=== PATIENT | female | born 1970 | race Two or more races ===

== ENCOUNTER 2024-05-16 10:50 | Outpatient (AMB) | payer OTHER, SELFPAY ==
[2024-05-16 10:54] VITALS: BP 126/88; PULSE 68; RESP 24; TEMP 37.1; O2SAT 98; BMI 56.3
--- NOTE | 2024-05-16 10:54 | MHC.PC.OV ---
Vital Signs 05/16/24 10:54 Height 5 ft 1 in Weight 297 lb 12.8 oz BMI 56.3 BP 126/88 Blood Pressure Location Lt brachial Position Sitting Respiration 24 H Pulse 68 Pulse Source Pulse Oximeter Temp 98.8 F Temp Source Oral Pulse Oximetry (%) 98 Oxygen Delivery Method Room Air Intake Visit Reasons: establish care Intake Note: Patient is a new patient here to establish care. Transferring care from [place]. Medical records have been brought in by patient. Optical Engineering Manager Required: No Accompanied by: Self / Same As Patient Allergies aspirin Allergy (Severe, Verified 05/16/24 11:33) Anaphylaxis Quinolones Allergy (Severe, Verified 05/16/24 11:33) Anaphylaxis Sulfa (Sulfonamide Antibiotics) Allergy (Severe, Verified 05/16/24 11:33) Anaphylaxis Medication List - Last Reconciled 05/16/24 by ALBA Salazar acetaminophen ER (Tylenol 8 Hour) 1,300 mg PO Q12H amitriptyline 100 mg PO BEDTIME aripiprazole 20 mg PO DAILY atenolol 25 mg PO DAILY azelastine 1 spray intranasal BID famotidine (Pepcid) 20 mg PO BEDTIME fluticasone propionate 50 mcg/actuation 1 spray intranasal BID gabapentin 300 mg PO BEDTIME gabapentin 100 mg PO DAILY melatonin 5 mg PO BEDTIME PRN montelukast 10 mg PO QPM omeprazole 40 mg PO DAILY venlafaxine ER 75 mg PO DAILY venlafaxine ER 150 mg PO DAILY Tobacco use date assessed: 05/16/24 Dental Screening Dental Screen Date: 05/16/24 Did you have a dental visit in the last 12 months?: Yes Did you have a dental problem in the last 6 months where you did not have access to dental care?: No Was dental information given to patient?: Patient has dentist HPI establish care HPI Details Previous PCP: In [place]. [place] Last visit:year ago Last PE: same Specialist: Neurologist-apnea CPAP use, psychiatrist (Dr. Winter Cobb on [address] [place] [address]) OBGYN: needs referral-last screened few years ago Past medical history: asthma, allergy, sinus, apnea, GERD, IBS, Dengerative disc disease, C2- s1 (chronic back pain), spondiolysis, elevated triglycerides, left knee meniscus tear-was not repair (5 years ago), she used to walk with her walker, she cannot used stairs Medications: Family HX: Problem: Reports having xrays of her back like 5 or 6 years ago-reports that the pain goes from her neck all the way down her lower back reports that she was supposed to see pain management before, but her mother got sick and and she forgot all about it reports that she was supposed to get the bariatric surgery; she had 3 separate dates but every time something happened and she was not able to do it. She is not sure if she is a candidate anymore. Her BMI is 56.3 this time-will refer her Reports that if she does not take the omeprazole she gets heart burn, nausea and at times vomits. Reports having a EGD more than 20 years ago reports that she sees the psychiatry monthly-because she wants to take off the amitriptyline 100mg-due to her age/side effects reports seeing a therapist every 2 weeks Reports that she is on atenolol for sinus tachycardia- hr 68 in office Reports having a mammogram a year ago-negative [facility] Medical History GERD (gastroesophageal reflux disease) IBS (irritable bowel syndrome) Asthma Sleep apnea History of torn meniscus of left knee Degenerative disc disease, cervical Surgical History Hx of cholecystectomy Hx of section Family History Father Congestive heart failure COPD (chronic obstructive pulmonary disease) Mother Diabetes Mental health problem Daughter Ovarian cancer Daughter No problems noted. Son No problems noted. Son No problems noted. Son No problems noted. Social History Household Members: Family Housing: House Alcohol intake: never Patient Tobacco Use Status: Never used Tobacco e-Cigarette/Vaping Use: Never Used Second Hand Smoke Exposure: No service: No Current occupational status: disabled Cognitive needs: Yes (Walker) Hearing needs: No Vision needs: Yes (Glasses) Questionnaire PHQ-9 Over the last 2 weeks, how often have you been bothered by any of the following problems? 1. Little interest or pleasure in doing things: several days 2. Feeling down, depressed, or hopeless: several days 3. Trouble falling or staying asleep, or sleeping too much: nearly every day 4. Feeling tired or having little energy: nearly every day 5. Poor appetite or overeating: not at all 6. Feeling bad about yourself - or that you are a failure or have let yourself or your family down: several days 7. Trouble concentrating on things, such as reading the newspaper or watching television: more than half the days 8. Moving or speaking so slowly that other people could have noticed. Or the opposite - being so fidgety or restless that you have been moving around a lot more than usual: not at all 9. Thoughts that you would be better off or of hurting yourself in some way: not at all Total score: 11 Depression Screening Interpretation: Positive Depression Screening Done: Yes 51813 - PHQ-9 Billing: Yes Source: Developed by Drs. Otf Adhikari, Jasmina Matias, Juliano Coyne and colleagues, with an educational tyesha from [employer]. Thrive Questionnaire Date Thrive assessed: 05/16/24 I am a: Patient What is your living situation today?: I have a steady place to live Within the past 12 months, did the food you bought not last and you didn't have the money to get more?: Never true Within the past 12 months, did you worry whether your food would run out before you got money to buy more?: Sometimes True Do you have trouble paying for medicines?: No Do you have trouble getting transportation to medical appointments?: Yes Do you have trouble paying your heating and electricity bill?: Yes Do you have trouble taking care of your child, family member or friend?: No Do you have trouble with day-to-day activities such as bathing, preparing meals, shopping, managing finances, etc.?: Yes Are you currently unemployed and looking for a job?: No Are you interested in more education?: No Please select the resources that you would like help with: Housing/Nursing Home and Transportation Currently or been in a relationship where the following occur: No concerns reported THRIVE Score: 3 AUDIT C Alcohol Use Questionnaire (AUDIT-C) 1. How often do you have a drink containing alcohol?: Never Total Score: 0 Score Reviewed/Action Taken: Yes OLGA-7 AMB Questionnaire OLGA-7 Date OLGA - 7 assessed: 05/16/24 Feeling nervous, anxious, or on edge: 1 = Several days Not being able to stop or control worryin = Several days Worrying too much about different things: 1 = Several days Trouble relaxin = Several days Being so restless that it is hard to sit still: 0 = Not at all Becoming easily annoyed or irritable: 0 = Not at all Feeling afraid as if something awful might happen: 3 = Nearly every day Total OLGA-7 score (0-4 normal; 5-9 mild; 10-14 moderate; 15-21 severe): 7 Source: Developed by Drs. Otf Adhikari, Jasmina Matias, Juliano Coyne and colleagues, with an educational tyesha from [employer]. OLGA-7 Assessment Billing OLGA-7 Assessment Tool: OLGA-7 Assessment 58782 Review of Systems Const Denies headache(s) and Reports snoring Eyes Denies loss of vision ENT Denies vertigo, Denies dizziness, Denies headache(s), Reports neck pain and Denies sore throat Card Denies chest pain, Denies leg edema and Denies lightheadedness Resp Denies cough, Denies hemoptysis, Reports snoring and Denies wheezing GI Denies abdominal pain, Denies melena, Denies constipation, Reports heartburn (Without treatment), Denies diarrhea, Reports nausea (Without the omeprazole) and Reports vomiting (Without the omeprazole) Denies urinary frequency, Denies dysuria and Denies urinary urgency Musc Reports back pain (Entire back), Reports arthralgias (Left knee), Denies joint swelling, Reports neck pain, Denies numbness and Denies tingling Neuro Denies Abnormal speech present, Denies behavioral changes, Denies vertigo, Denies dizziness, Denies headache(s), Denies loss of vision, Denies memory loss, Denies numbness and Denies tingling Psych Reports anxiety, Denies behavioral changes, Reports depression, Denies memory loss and Denies panic attacks Tony/Lymph Denies easy bleeding and Denies easy bruising Aller/Immun Denies wheezing Physical exam (Primary Care) Vital Signs: Last Vital Signs Temp 98.8 F 05/16/24 10:54 Pulse 68 05/16/24 10:54 Resp 24 H 05/16/24 10:54 BP 126/88 05/16/24 10:54 Pulse Ox 98 05/16/24 10:54 Oxygen Delivery Method Room Air 05/16/24 10:54 BMI result Body Mass Index 56.3 Tobacco/Smoking Status: Tobacco use Status Tobacco use date assessed 05/16/24 05/16/24 11:27 Patient Tobacco Use Status Never used Tobacco 05/16/24 11:27 e-Cigarette/Vaping Use Never Used 05/16/24 11:27 PHQ-9: PHQ-9 Score PHQ-9: Total score 11 05/16/24 11:54 Depression Screening Interpretation: Positive Thrive Assessment: Date of Thrive Assessment Date Thrive assessed 05/16/24 05/16/24 11:27 Currently or been in a relationship where the following occur: No concerns reported Const General: healthy appearing, no acute distress, alert and awake Nutritional Appearance: well nourished Orientation/consciousness: oriented to person, oriented to place and oriented to time HENMT Ears: external ears normal General nose exam: Normal external nose present Eyes Conjunctivae: conjunctivae normal Sclerae: sclerae normal Pupils: Equal, round and reactive pupils present Neck Neck: Yes no lymphadenopathy and Yes no JVD Thyroid: Thyroid normal Carotids: no bruits Resp Effort & Inspection: normal respiratory effort and not tachypneic Auscultation: no crackles, no rales, no rhonchi and no wheezes Cardio Rate: regular rate Rhythm: regular rhythm Heart sounds: no murmurs and normal S1 and S2 GI Palpation (GI): Soft to palpation, nontender, no hepatomegaly and no splenomegaly Auscultation: normal bowel sounds Back/Spine/Pelvis Cervical Spine: Cervical spine tenderness Thoracic/Lumbar Spine: thoracic spinal tenderness and lumbar spinal tenderness Skin General skin exam: no rashes or lesions noted and dry skin Neuro General: oriented to person, oriented to place and oriented to time Cranial nerves: Yes Equal, round and reactive pupils present Speech: No Abnormal speech present Gait exam (Neuro): Normal gait present Motor exam (neuro): no tremor noted Extrem Right upper extremity: full ROM Left upper extremity: full ROM Right lower extremity: full ROM; no edema Left lower extremity: full ROM and knee Details: tenderness Location: of the popliteal fossa and of the medial joint line; no edema Psych Mental Status: mental status grossly normal Speech and movement: Normal speech and movement present Affect: normal affect Attitude: cooperative Thought process: Normal thought process present Coding Level of Care Code New Pt Level 4 (85389) Diagnoses Gastroesophageal reflux disease, unspecified whether esophagitis present K21.9 Esophagitis presence: esophagitis presence not specified Sleep apnea, unspecified type G47.30 Sleep apnea type: unspecified type Left knee pain, unspecified chronicity M25.562 Chronicity: unspecified Degenerative disc disease, cervical M50.30 Morbid obesity with BMI of 50.0-59.9, adult E66.01; Z68.43 Additional Codes OLGA-7 Assessment Billing - OLGA-7 Assessment Tool: OLGA-7 Assessment 85148 ([id number]) PHQ-9 - 01490 - PHQ-9 Billing: Yes ([id number]) Time Spent (min) 45 Assessment & Plan Assessment & Plan (1) GERD (gastroesophageal reflux disease): Code(s): K21.9 - Gastro-esophageal reflux disease without esophagitis Category: Medical Qualifiers: Esophagitis presence: esophagitis presence not specified Qualified Code(s): K21.9 - Gastro-esophageal reflux disease without esophagitis Plan: Patient reports that her last EGD was about 20 years ago in [place]. Reports nausea and vomiting if forgets to take omeprazole 40 mg. Reports that symptoms are stable once she takes the medication. Continue omeprazole 40 mg daily. Reinforced dietary restrictions. We will refer the patient to GI for follow up EGD (2) Sleep apnea: Code(s): G47.30 - Sleep apnea, unspecified Category: Medical Qualifiers: Sleep apnea type: unspecified type Qualified Code(s): G47.30 - Sleep apnea, unspecified Plan: Patient has a history of sleep apnea. She moved from [place] reports that she does not have a CPAP machine. Reports that she would like to be referred to have the test done and possibly getting machine because she is falling asleep everywhere. We will start with a home sleep study (3) Left knee pain: Code(s): M25.562 - Pain in left knee Category: Medical Qualifiers: Chronicity: unspecified Qualified Code(s): M25.562 - Pain in left knee Plan: Patient reports having a meniscus tears about 5 years ago that did not get repaired. Reports that she is still having pain and is unable to go up stairs. We will start with an x-ray of the left knee to further evaluate (4) Degenerative disc disease, cervical: Code(s): M50.30 - Other cervical disc degeneration, unspecified cervical region Category: Medical Plan: Patient reports that she was told she had degeneration from C2-S1. Reports that she is having pain down her whole spine. Cervical x-ray, thoracic gastric, lumbar x-ray ordered to further evaluate (5) Morbid obesity with BMI of 50.0-59.9, adult: Code(s): E66.01 - Morbid (severe) obesity due to excess calories; Z68.43 - Body mass index [BMI] 50.0-59.9, adult Category: Medical Plan: The patient reports that she was supposed to have bariatric surgery and was scheduled 3 separate times. Reports that life changes kept happening and she was not able to proceed. Reports that she is not sure if she is still a candidate but would like to look into this as an option. Orders: Orders Complete Blood Count Auto Diff Today Z00.00 - Encounter for general adult medical examination without abnormal findings Comprehensive [place]. Panel Fast Today Z00.00 - Encounter for general adult medical examination without abnormal findings Vitamin D 25-OH Total Today Z00.00 - Encounter for general adult medical examination without abnormal findings XR thoracic spine 3V Today M50.30 - Other cervical disc degeneration, unspecified cervical region, M54.9 - Dorsalgia, unspecified XR lumbar spine 2-3V Today M50.30 - Other cervical disc degeneration, unspecified cervical region, M54.9 - Dorsalgia, unspecified Glucose Fasting Today Z00.00 - Encounter for general adult medical examination without abnormal findings UA CC w/rflx Micro + Cult Today Z00.00 - Encounter for general adult medical examination without abnormal findings TSH reflex Free T4 Today Z00.00 - Encounter for general adult medical examination without abnormal findings Lipid Panel Today Z00.00 - Encounter for general adult medical examination without abnormal findings XR cervical spine 3V Today M50.30 - Other cervical disc degeneration, unspecified cervical region, M54.2 - Cervicalgia XR knee LT 3V Today M25.562 - Pain in left knee, Z87.828 - Personal history of other (healed) physical injury and trauma RT home sleep study Today G47.30 - Sleep apnea, unspecified Referrals Gastroenterology Referral K21.9 - Gastro-esophageal reflux disease without esophagitis Medical Weight Management Referral E66.01 - Morbid (severe) obesity due to excess calories, Z68.43 - Body mass index [BMI] 50.0-59.9, adult WELFARE ADMINISTRATOR Referral Z01.419 - Encounter for gynecological examination (general) (routine) without abnormal findings Medications: New gabapentin 100 mg PO DAILY 30 caps 3RF fenofibrate nanocrystallized 145 mg PO DAILY 30 tabs 3RF montelukast 10 mg PO QPM 30 tabs 3RF gabapentin 300 mg PO BEDTIME 30 caps 3RF atenolol 25 mg PO DAILY 30 tabs 3RF
== END 2024-05-16 12:12 | disposition home or self-care (01) ==
LOC: HO.HMCH 10:51
DX: K21.9 Gastro-esophageal reflux disease without esophagitis (principal); G47.30 Sleep apnea, unspecified; E66.01 Morbid (severe) obesity due to excess calories; Z68.43 Body mass index [BMI] 50.0-59.9, adult; M25.562 Pain in left knee; M50.30 Other cervical disc degeneration, unspecified cervical region

== ENCOUNTER → 2024-05-16 10:50 | Outpatient (BNVA) | payer MEDICARE, SELFPAY | DX: G47.30 Sleep apnea, unspecified (principal); K21.9 Gastro-esophageal reflux disease without esophagitis; M25.562 Pain in left knee; M50.30 Other cervical disc degeneration, unspecified cervical region; E66.01 Morbid (severe) obesity due to excess calories; Z68.43 Body mass index [BMI] 50.0-59.9, adult; Z99.89 Dependence on other enabling machines and devices; Z87.828 Personal history of other (healed) physical injury and trauma | CPT/HCPCS: 96127 ==

== ENCOUNTER 2024-06-08 09:43 | Outpatient (REF) | payer OTHER, MEDICAID, SELFPAY ==
--- NOTE | ~2024-06-08 | XR_ITS ---
EXAMINATION: XR KNEE, LEFT CLINICAL INFORMATION: Z87.828 - Personal history of other (healed) physical injury and trauma COMPARISON: None available. TECHNIQUE: Four views of the left knee. FINDINGS: There is loss of tricompartment joint space with moderate periarticular spurring medial and patellofemoral compartments. There is no loose bodies, acute fracture or dislocation. No bony erosive changes. The soft tissues are normal. XR/XR knee LT 3V IMPRESSION: Moderate degenerative arthritic changes medial and patellofemoral compartment. Electronically signed by: Byron Álvarez MD 06/08/2024 12:20 PM EDT
--- NOTE | ~2024-06-08 | XR_ITS ---
EXAMINATION: XR CERVICAL SPINE CLINICAL INFORMATION: M50.30 - Other cervical disc degeneration, unspecified cervical region COMPARISON: None available. TECHNIQUE: 3 views of the cervical spine were obtained. FINDINGS: There is maintained cervical lordosis. The vertebral heights and alignment are normal. There is mild loss of C6-7 and C7-T1 disc height. Rest the disc heights are normal. The prevertebral and paravertebral soft tissues are normal. No aggressive lytic or sclerotic process seen. XR/XR cervical spine 3V IMPRESSION: Mild degenerative disc changes C6-7 and C7-T1 disc levels Electronically signed by: Byron Álvarez MD 06/08/2024 12:29 PM EDT
--- NOTE | ~2024-06-08 | XR_ITS ---
EXAMINATION: XR THORACIC SPINE CLINICAL INFORMATION: M54.9 - Dorsalgia, unspecified COMPARISON: None available. TECHNIQUE: 3 views of the thoracic spine were obtained. FINDINGS: There is maintained thoracic kyphosis. The vertebral heights, alignment and disc heights are normal. No visible acute fracture, dislocation or subluxation seen. No aggressive lytic or sclerotic process seen. XR/XR thoracic spine 3V IMPRESSION: Unremarkable dorsal spine exam. Electronically signed by: Byron Álvarez MD 06/08/2024 12:21 PM EDT
--- NOTE | ~2024-06-08 | XR_ITS ---
EXAMINATION: XR LUMBOSACRAL SPINE CLINICAL INFORMATION: M50.30 - Other cervical disc degeneration, unspecified cervical region COMPARISON: None available. TECHNIQUE: Three views of the lumbosacral spine. FINDINGS: There is normal lumbar lordosis. The vertebral heights and alignment is normal. There is mild loss of L5-S1 disc height. There is mild dextroscoliosis. There is no acute fracture, dislocation, lytic or sclerotic process seen. SI joints are normal. XR/XR lumbar spine 2-3V IMPRESSION: Unremarkable lumbar spine exam. There is mild scoliosis. Electronically signed by: Byron Álvarez MD 06/08/2024 12:17 PM EDT
[2024-06-08 11:49] LABS: Appearance Urine Clear; Color Urine Dark Yellow; Glucose Urine UA Negative (Negative); Leukocyte Esterase Urine Trace (Negative); Nitrite Urine Negative (Negative); PH 5.5 (5.0-9.0); Specific Gravity - Urine >= 1.030 (1.005-1.025); UMIC TRIGGER UACC YES; Urine Blood Negative (Negative); Urine Ketones Trace mg/dL (Negative); Urine Protein Trace mg/dL (Neg-Trace)
[2024-06-08 11:56] LABS: Bacteria Urine 2+ (None Seen); Hyaline Casts Urine 0-2 /LPF (0-2); RBC Urine 0-2 /HPF (0-2); WBC Urine 0-5 /HPF (0-5)
== END 2024-06-08 09:44 | disposition home or self-care (01) ==
LOC: HO.XRAY 09:43
DX: M54.9 Dorsalgia, unspecified (principal); Z87.828 Personal history of other (healed) physical injury and trauma; M25.562 Pain in left knee; M54.2 Cervicalgia
CPT/HCPCS: 36415; 72040; 72072; 72100; 73562; 80053; 80061; 81001; 82306; 84443; 85025

== ENCOUNTER → 2024-06-08 10:46 | Outpatient (BNV) | payer OTHER, MEDICAID, SELFPAY | PROVIDERS: Visit Provider Radiology Diagnostic Radiology | DX: M51.369 Other intervertebral disc degeneration, lumbar region without mention of lumbar back pain or lower extremity pain (principal); M54.9 Dorsalgia, unspecified; M50.30 Other cervical disc degeneration, unspecified cervical region; M17.12 Unilateral primary osteoarthritis, left knee | CPT/HCPCS: 72040; 72072; 72100; 73562 ==

== ENCOUNTER 2024-06-27 09:17 | Outpatient (AMB) | payer MEDICARE, SELFPAY ==
[2024-06-27 09:22] VITALS: BP 120/72; PULSE 68; RESP 20; TEMP 37.1; O2SAT 96; BMI 55.2
--- NOTE | 2024-06-27 09:22 | MHC.PC.OV ---
Vital Signs 06/27/24 09:22 Height 5 ft 1 in Weight 292 lb 3.2 oz BMI 55.2 BP 120/72 Blood Pressure Location Lt brachial Position Sitting Respiration 20 Pulse 68 Pulse Source Pulse Oximeter Temp 98.8 F Temp Source Oral Pulse Oximetry (%) 96 Oxygen Delivery Method Room Air Intake Visit Reasons: PE - see comments Hospice Music Therapist Required: No Accompanied by: Self / Same As Patient Allergies aspirin Allergy (Severe, Verified 06/27/24 10:46) Anaphylaxis Quinolones Allergy (Severe, Verified 06/27/24 10:46) Anaphylaxis Sulfa (Sulfonamide Antibiotics) Allergy (Severe, Verified 06/27/24 10:46) Anaphylaxis Medication List - Last Reconciled 06/27/24 by ALBA Salazar acetaminophen ER (Tylenol 8 Hour) 1,300 mg PO Q12H amitriptyline 100 mg PO BEDTIME amitriptyline 75 mg PO BEDTIME aripiprazole 20 mg PO DAILY atenolol 25 mg PO DAILY azelastine 1 spray intranasal BID famotidine (Pepcid) 20 mg PO BEDTIME fenofibrate nanocrystallized 145 mg PO DAILY fluticasone propionate 50 mcg/actuation 1 spray intranasal BID gabapentin 100 mg PO DAILY gabapentin 300 mg PO BEDTIME melatonin 5 mg PO BEDTIME PRN montelukast 10 mg PO QPM omeprazole 40 mg PO DAILY venlafaxine ER 75 mg PO DAILY venlafaxine ER 150 mg PO DAILY Tobacco use date assessed: 06/27/24 Dental Screening Dental Screen Date: 06/27/24 Did you have a dental visit in the last 12 months?: Yes Did you have a dental problem in the last 6 months where you did not have access to dental care?: No Was dental information given to patient?: Patient has dentist HPI PE - see comments HPI Details Dentist: up to date Eye: up to date Snellen: Right: Left: Corrected vision: STI screening: Colonoscopy:due, reports doing this 20 years ago Pap Smer: She was referred on previous visit PHQ-9: Flu: usually COVID: x3 Tdap: Diet: regular Exercise:no The patient is a 53-year-old female presenting for annual physical. She states concerns of allergic rhinitis, plantar fasciitis, GERD, and sinus problems. She reports that her allergic rhinitis has been challenging to manage with limited relief from nasal sprays and intermittent use of Sudafed, which raises her blood pressure. Plantar fasciitis is causing her significant morning stiffness and foot pain eased by warmth and movement. GERD symptoms continue under management with omeprazole, with a history of severe stomach aggravations. Sinus congestion exacerbates breathing difficulties due to asthma. She has known allergies to quinolones with a recorded anaphylactic shock and seeks advice managing high cholesterol despite dietary changes and medication. Reports that they were unable to find her veins at [facility] [place]multiple attempts Will reorder labs and print them for the patient to take to [facility] because they have a vein finder States that she has always have poor veins-encouraged her to make sure she is hydrated before going [facility] Medical History GERD (gastroesophageal reflux disease) IBS (irritable bowel syndrome) Asthma Sleep apnea History of torn meniscus of left knee Degenerative disc disease, cervical Surgical History Hx of cholecystectomy Hx of section Family History Father Congestive heart failure COPD (chronic obstructive pulmonary disease) Mother Diabetes Mental health problem Daughter Ovarian cancer Daughter No problems noted. Son No problems noted. Son No problems noted. Son No problems noted. Social History Household Members: Family Housing: House Alcohol intake: never Patient Tobacco Use Status: Never used Tobacco e-Cigarette/Vaping Use: Never Used Second Hand Smoke Exposure: No service: No Current occupational status: disabled Cognitive needs: Yes (Walker) Hearing needs: No Vision needs: Yes (Glasses) Questionnaire PHQ-9 Over the last 2 weeks, how often have you been bothered by any of the following problems? 1. Little interest or pleasure in doing things: more than half the days 2. Feeling down, depressed, or hopeless: not at all 3. Trouble falling or staying asleep, or sleeping too much: nearly every day 4. Feeling tired or having little energy: nearly every day 5. Poor appetite or overeating: not at all 6. Feeling bad about yourself - or that you are a failure or have let yourself or your family down: nearly every day 7. Trouble concentrating on things, such as reading the newspaper or watching television: more than half the days 8. Moving or speaking so slowly that other people could have noticed. Or the opposite - being so fidgety or restless that you have been moving around a lot more than usual: not at all 9. Thoughts that you would be better off or of hurting yourself in some way: not at all Total score: 13 Depression Screening Interpretation: Positive Depression Screening Done: Yes Source: Developed by Drs. Otf Adhikari, Jasmina Matias, Juliano Coyne and colleagues, with an educational tyesha from [employer]. Thrive Questionnaire Date Thrive assessed: 06/27/24 I am a: Patient What is your living situation today?: I have a steady place to live Within the past 12 months, did the food you bought not last and you didn't have the money to get more?: Never true Within the past 12 months, did you worry whether your food would run out before you got money to buy more?: Sometimes True Do you have trouble paying for medicines?: No Do you have trouble getting transportation to medical appointments?: Yes Do you have trouble paying your heating and electricity bill?: Yes Do you have trouble taking care of your child, family member or friend?: No Do you have trouble with day-to-day activities such as bathing, preparing meals, shopping, managing finances, etc.?: Yes Are you currently unemployed and looking for a job?: No Are you interested in more education?: No Please select the resources that you would like help with: Transportation and Utilities Currently or been in a relationship where the following occur: No concerns reported THRIVE Score: 3 AUDIT C Alcohol Use Questionnaire (AUDIT-C) 1. How often do you have a drink containing alcohol?: Never Total Score: 0 Score Reviewed/Action Taken: No OLGA-7 AMB Questionnaire OLGA-7 Date OLGA - 7 assessed: 06/27/24 Feeling nervous, anxious, or on edge: 0 = Not at all Not being able to stop or control worryin = Not at all Worrying too much about different things: 0 = Not at all Trouble relaxin = Not at all Being so restless that it is hard to sit still: 0 = Not at all Becoming easily annoyed or irritable: 0 = Not at all Feeling afraid as if something awful might happen: 3 = Nearly every day Total OLGA-7 score (0-4 normal; 5-9 mild; 10-14 moderate; 15-21 severe): 3 Source: Developed by Drs. Otf Adhikari, Jasmina Matias, Juliano Coyne and colleagues, with an educational tyesha from [employer]. Review of Systems Const Denies headache(s) Eyes Denies loss of vision ENT Denies vertigo, Denies dizziness, Denies headache(s), Reports nasal congestion, Reports nasal obstruction (feels like she cannot breathe out of her nose), Reports neck pain and Denies sore throat Card Denies chest pain, Denies leg edema and Denies lightheadedness Resp Reports cough (intermittently), Denies hemoptysis and Denies wheezing GI Denies abdominal pain, Denies melena, Denies constipation, Reports heartburn, Denies diarrhea and Denies vomiting Denies urinary frequency, Denies dysuria and Denies urinary urgency Musc Reports abnormal gait (foot pain worse in the mornings), Reports back pain ( thoracic and lumbar region), Denies arthralgias, Denies joint swelling, Reports neck pain, Denies numbness, Reports stiffness (in legs-primarily in the mornings) and Denies tingling Skin/Breast Reports system reviewed and no additional complaints, except as documented Neuro Denies Abnormal speech present, Reports abnormal gait (foot pain worse in the mornings), Denies behavioral changes, Denies vertigo, Denies dizziness, Denies headache(s), Denies loss of vision, Denies memory loss, Denies numbness and Denies tingling Psych Denies anxiety, Denies behavioral changes, Denies depression, Denies memory loss and Denies panic attacks Tony/Lymph Denies easy bleeding and Denies easy bruising Aller/Immun Denies wheezing Physical exam (Primary Care) Vital Signs: Last Vital Signs Temp 98.8 F 06/27/24 09:22 Pulse 68 06/27/24 09:22 Resp 20 06/27/24 09:22 BP 120/72 06/27/24 09:22 Pulse Ox 96 06/27/24 09:22 Oxygen Delivery Method Room Air 06/27/24 09:22 BMI result Body Mass Index 55.2 Tobacco/Smoking Status: Tobacco use Status Tobacco use date assessed 06/27/24 06/27/24 09:40 Patient Tobacco Use Status Never used Tobacco 06/27/24 09:40 e-Cigarette/Vaping Use Never Used 06/27/24 09:40 PHQ-9: PHQ-9 Score PHQ-9: Total score 13 06/27/24 10:57 Depression Screening Interpretation: Positive Thrive Assessment: Date of Thrive Assessment Date Thrive assessed 06/27/24 06/27/24 09:40 Currently or been in a relationship where the following occur: No concerns reported Const General: healthy appearing, no acute distress, alert and awake Nutritional Appearance: well nourished Orientation/consciousness: oriented to person, oriented to place and oriented to time HENMT Ears: TM's normal bilaterally General nose exam: Abnormal mucous membranes and turbinates present boggy and erythematous bilateral and Nasal discharge present purulent Eyes Conjunctivae: conjunctivae normal Sclerae: sclerae normal Pupils: Equal, round and reactive pupils present Neck Neck: Yes no lymphadenopathy and Yes no JVD Thyroid: Thyroid normal Carotids: no bruits Resp Effort & Inspection: normal respiratory effort and not tachypneic Auscultation: no crackles, no rales, no rhonchi and no wheezes Cardio Rate: regular rate Rhythm: regular rhythm Heart sounds: no murmurs and normal S1 and S2 GI Palpation (GI): Soft to palpation, nontender, no hepatomegaly and no splenomegaly Auscultation: normal bowel sounds Back/Spine/Pelvis Cervical Spine: No Cervical spine tenderness Thoracic/Lumbar Spine: No thoracic spinal tenderness and No lumbar spinal tenderness Skin General skin exam: no rashes or lesions noted and dry skin Neuro General: oriented to person, oriented to place and oriented to time Cranial nerves: Yes Equal, round and reactive pupils present Speech: No Abnormal speech present Gait exam (Neuro): Normal gait present Motor exam (neuro): no tremor noted Deep tendon reflexes (DTR's): Right triceps reflex intensity grade: 2+, Left triceps reflex intensity grade: 2+, Rt Biceps (C5, C6): 2+, Left biceps reflex intensity grade: 2+, Right brachioradialis reflex intensity grade: 2+ and Left brachioradialis reflex intensity grade: 2+ Extrem Right upper extremity: full ROM Left upper extremity: full ROM Right lower extremity: full ROM, lower leg Details: normal to inspection and foot Details: normal to inspection; no edema Left lower extremity: full ROM, knee Details: no tenderness and no swelling, lower leg Details: normal to inspection and foot Details: normal to inspection; no edema Psych Mental Status: mental status grossly normal Speech and movement: Normal speech and movement present Affect: normal affect Attitude: cooperative Thought process: Normal thought process present Coding Level of Care Code Est Pt Prev Care 40-64y(37503) Diagnoses Annual physical exam Z00.00 Morbid obesity with BMI of 50.0-59.9, adult E66.01; Z68.43 Gastroesophageal reflux disease, unspecified whether esophagitis present K21.9 Esophagitis presence: esophagitis presence not specified Asthma, unspecified asthma severity, unspecified whether complicated, unspecified whether persistent J45.909 Asthma severity: unspecified severity Asthma persistence: unspecified Asthma complication type: unspecified Sleep apnea, unspecified type G47.30 Sleep apnea type: unspecified type Left knee pain, unspecified chronicity M25.562 Chronicity: unspecified Degenerative disc disease, cervical M50.30 Chronic bilateral low back pain without sciatica M54.50; G89.29 Chronicity: chronic Back pain laterality: bilateral Sciatica presence: without sciatica Upper back pain M54.9 Major depressive disorder, remission status unspecified, unspecified whether recurrent F32.9 Major depression recurrence: unspecified whether recurrent Active/Remission status: remission status unspecified Anxiety F41.9 High cholesterol E78.00 Rhinosinusitis J32.9 Hypertension, unspecified type I10 Hypertension type: unspecified Time Spent (min) 44 Assessment & Plan Assessment & Plan (1) Annual physical exam: Code(s): Z00.00 - Encounter for general adult medical examination without abnormal findings Category: Medical Plan: Reviewed preventative guidelines with the patient. Attempted to complete labs but the patient is a hard stick and the commercial census taker was unsuccessful. Labs were reordered and printed out for patient to take to [facility], given they have a vein finder. Due for colonoscopy-added to GI referral. Patient was referred to OBGYN on her previous office visit and is waiting on an appointment. Mammogram ordered for breast cancer screening. (2) Morbid obesity with BMI of 50.0-59.9, adult: Code(s): E66.01 - Morbid (severe) obesity due to excess calories; Z68.43 - Body mass index [BMI] 50.0-59.9, adult Category: Medical Plan: The patient reports that she was supposed to have bariatric surgery and was scheduled 3 separate times. Reports that life changes kept happening and she was not able to proceed. Reports that she is not sure if she is still a candidate but would like to look into this as an option. She was referred to Medical weight management. (3) GERD (gastroesophageal reflux disease): Code(s): K21.9 - Gastro-esophageal reflux disease without esophagitis Category: Medical Qualifiers: Esophagitis presence: esophagitis presence not specified Qualified Code(s): K21.9 - Gastro-esophageal reflux disease without esophagitis Plan: Patient reports that her last EGD was about 20 years ago in [place]. Reports nausea and vomiting if forgets to take omeprazole 40 mg. Reports that symptoms are stable once she takes the medication. Continue omeprazole 40 mg daily. Reinforced dietary restrictions. The patient was referred to GI for follow up EGD (4) Asthma: Code(s): J45.909 - Unspecified asthma, uncomplicated Category: Medical Qualifiers: Asthma severity: unspecified severity Asthma persistence: unspecified Asthma complication type: unspecified Qualified Code(s): J45.909 - Unspecified asthma, uncomplicated Plan: Continue montelukast 10 mg at HS and albuterol rescue inhaler as needed (5) Sleep apnea: Code(s): G47.30 - Sleep apnea, unspecified Category: Medical Qualifiers: Sleep apnea type: unspecified type Qualified Code(s): G47.30 - Sleep apnea, unspecified Plan: Patient has a history of sleep apnea. She moved from [place] reports that she does not have a CPAP machine. Reports that she would like to be referred to have the test done and possibly getting machine because she is falling asleep everywhere. Sleep study was ordered (6) Left knee pain: Code(s): M25.562 - Pain in left knee Category: Medical Qualifiers: Chronicity: unspecified Qualified Code(s): M25.562 - Pain in left knee Plan: Patient reports having a meniscus tears about 5 years ago that did not get repaired. Reports that she is still having pain and is unable to go up stairs. knee xray on 06/08/24 showed degenerative arthritic changes. Will refer the patient to orthopedics Continue gabapentin 100 mg daily and 300 mg at bedtime (7) Degenerative disc disease, cervical: Code(s): M50.30 - Other cervical disc degeneration, unspecified cervical region Category: Medical Plan: Cervical x-ray on 06/08/2024 showed: Mild degenerative disc changes C6-7 and C7-T1 disc levels PT evaluation ordered (8) Low back pain: Code(s): M54.50 - Low back pain, unspecified Category: Medical Qualifiers: Chronicity: chronic Back pain laterality: bilateral Sciatica presence: without sciatica Qualified Code(s): M54.50 - Low back pain, unspecified; G89.29 - Other chronic pain Plan: Mild scoliosis. Unremarkable imaging (9) Upper back pain: Code(s): M54.9 - Dorsalgia, unspecified Category: Medical Plan: Thoracic x-ray done on 06/08/2024 showed unremarkable imaging (10) Major depression: Code(s): F32.9 - Major depressive disorder, single episode, unspecified Category: Medical Qualifiers: Major depression recurrence: unspecified whether recurrent Active/Remission status: remission status unspecified Qualified Code(s): F32.9 - Major depressive disorder, single episode, unspecified Plan: Continue amitriptyline 75 mg at bedtime, amitriptyline 100 mg at bedtime, area aripiprazole 20 mg daily, venlafaxine ER 75 mg daily, venlafaxine ER 150 mg daily Follow up with Psychiatry as scheduled (11) Anxiety: Code(s): F41.9 - Anxiety disorder, unspecified Category: Medical Plan: Continue venlafaxine ER 75 mg daily, venlafaxine 150 mg daily Follow up with Psychiatry as scheduled (12) High cholesterol: Code(s): E78.00 - Pure hypercholesterolemia, unspecified Category: Medical Plan: Reinforced low-cholesterol diet and activity as tolerated Continue fenofibrate 145 mg daily Lipid panel ordered to further evaluate (13) Rhinosinusitis: Code(s): J32.9 - Chronic sinusitis, unspecified Category: Medical Plan: Augmentin b.i.d. x7 days ordered along with prednisone tapered. Continue nose spray (14) HTN (hypertension): Code(s): I10 - Essential (primary) hypertension Category: Medical Qualifiers: Hypertension type: unspecified Qualified Code(s): I10 - Essential (primary) hypertension Plan: Reinforced low-salt diet Continue atenolol 25 mg daily Orders: Orders Complete Blood Count Auto Diff 06/27/24 E66.01 - Morbid (severe) obesity due to excess calories, G47.30 - Sleep apnea, unspecified, J45.909 - Unspecified asthma, uncomplicated, K21.9 - Gastro-esophageal reflux disease without esophagitis, Z00.00 - Encounter for general adult medical examination without abnormal findings, Z68.43 - Body mass index [BMI] 50.0-59.9, adult Comprehensive [place]. Panel Fast 06/27/24 E66.01 - Morbid (severe) obesity due to excess calories, G47.30 - Sleep apnea, unspecified, J45.909 - Unspecified asthma, uncomplicated, K21.9 - Gastro-esophageal reflux disease without esophagitis, Z00.00 - Encounter for general adult medical examination without abnormal findings, Z68.43 - Body mass index [BMI] 50.0-59.9, adult Lipid Panel 06/27/24 E66.01 - Morbid (severe) obesity due to excess calories, G47.30 - Sleep apnea, unspecified, J45.909 - Unspecified asthma, uncomplicated, K21.9 - Gastro-esophageal reflux disease without esophagitis, Z00.00 - Encounter for general adult medical examination without abnormal findings, Z68.43 - Body mass index [BMI] 50.0-59.9, adult UA CC w/rflx Micro + Cult 06/27/24 E66. - Morbid (severe) obesity due to excess calories, G47.30 - Sleep apnea, unspecified, J45.909 - Unspecified asthma, uncomplicated, K21.9 - Gastro-esophageal reflux disease without esophagitis, Z00.00 - Encounter for general adult medical examination without abnormal findings, Z68.43 - Body mass index [BMI] 50.0-59.9, adult Vitamin D 25-OH Total 06/27/24 E66.01 - Morbid (severe) obesity due to excess calories, G47.30 - Sleep apnea, unspecified, J45.909 - Unspecified asthma, uncomplicated, K21.9 - Gastro-esophageal reflux disease without esophagitis, Z00.00 - Encounter for general adult medical examination without abnormal findings, Z68.43 - Body mass index [BMI] 50.0-59.9, adult MM tomosynthesis screening BI Today Z12.39 - Encounter for other screening for malignant neoplasm of breast TSH reflex Free T4 06/27/24 E66.01 - Morbid (severe) obesity due to excess calories, G47.30 - Sleep apnea, unspecified, J45.909 - Unspecified asthma, uncomplicated, K21.9 - Gastro-esophageal reflux disease without esophagitis, Z00.00 - Encounter for general adult medical examination without abnormal findings, Z68.43 - Body mass index [BMI] 50.0-59.9, adult Hemoglobin A1c 06/27/24 E66.01 - Morbid (severe) obesity due to excess calories, G47.30 - Sleep apnea, unspecified, J45.909 - Unspecified asthma, uncomplicated, K21.9 - Gastro-esophageal reflux disease without esophagitis, Z00.00 - Encounter for general adult medical examination without abnormal findings, Z68.43 - Body mass index [BMI] 50.0-59.9, adult PT Evaluation and Treatment Today M50.30 - Other cervical disc degeneration, unspecified cervical region Referrals Orthopedics Referral M25.562 - Pain in left knee Medications: New amoxicillin-pot clavulanate 875-125 mg 1 tab PO BID 7 tabs 0RF prednisone see taper instructions take 4 tabs x 2 days, then 3 tabs x2 days, then 2 tabs x 2 days, then 1 tab x 2 days =20 tabs for 8 days 10 mg PO DIRECTED 20 tabs 0RF albuterol sulfate 90 mcg/actuation 2 puffs inhalation Q4-6H PRN 8.5 grams 2RF shortness of breath or wheezing omeprazole 40 mg PO DAILY 90 caps 3RF azelastine administer into each nostril 1 spray intranasal BID 30 mL 3RF epinephrine (EpiPen 2-Adolfo) for 2 doses 0.3 mg (0.3 mL) IM Q10M PRN 2 ea 2RF anaphylaxis
== END 2024-06-27 11:31 | disposition home or self-care (01) ==
LOC: HO.HMCH 09:18
DX: Z00.00 Encounter for general adult medical examination without abnormal findings (principal); E66.01 Morbid (severe) obesity due to excess calories; Z68.43 Body mass index [BMI] 50.0-59.9, adult; K21.9 Gastro-esophageal reflux disease without esophagitis; J45.909 Unspecified asthma, uncomplicated; G47.30 Sleep apnea, unspecified; M25.562 Pain in left knee; M50.30 Other cervical disc degeneration, unspecified cervical region; M54.50 Low back pain, unspecified; G89.29 Other chronic pain; M54.9 Dorsalgia, unspecified; F32.9 Major depressive disorder, single episode, unspecified; F41.9 Anxiety disorder, unspecified; E78.00 Pure hypercholesterolemia, unspecified; J32.9 Chronic sinusitis, unspecified; I10 Essential (primary) hypertension

== ENCOUNTER → 2024-06-27 09:17 | Outpatient (BNVA) | payer MEDICARE, SELFPAY | DX: Z00.00 Encounter for general adult medical examination without abnormal findings (principal); E66.01 Morbid (severe) obesity due to excess calories; Z68.43 Body mass index [BMI] 50.0-59.9, adult; K21.9 Gastro-esophageal reflux disease without esophagitis; J45.909 Unspecified asthma, uncomplicated; G47.30 Sleep apnea, unspecified; M25.562 Pain in left knee; M54.50 Low back pain, unspecified; G89.29 Other chronic pain; M54.9 Dorsalgia, unspecified; M50.30 Other cervical disc degeneration, unspecified cervical region | CPT/HCPCS: 99396 ==

== ENCOUNTER 2024-07-19 09:22 | Outpatient (REF) | payer MEDICARE, MEDICAID, SELFPAY ==
[2024-07-19 10:20] LABS: Basophils Absolute Auto 0.1 X10*3/uL (0.0-0.2); Basophils Percent Auto 0.6 % (0-2); Eosinophils Absolute Auto 0.6 X10*3/uL (0.0-0.4); Eosinophils Percent Auto 5.2 % (0-4); Hematocrit 47.5 % (37.0-47.0); Hemoglobin 15.3 g/dl (12.0-16.0); Imm Gran Abs Auto 0.03 X10*3/uL (0.00-0.03); Imm Gran Pct Auto 0.3 % (0.0-0.4); Lymphocytes Absolute Auto 2.2 X10*3/uL (1.2-4.9); Lymphocytes Percent Auto 19.6 % (20-40); MANUAL DIFF FLAG SCAN; Mean Corpuscular HGB Conc 32.2 g/dl (31.0-35.0); Mean Corpuscular Hemoglobin 30.1 pg (27.0-33.0); Mean Corpuscular Volume 93.5 fL (80.0-98.0); Monocytes Absolute Auto 0.6 X10*3/uL (0.1-1.2); Monocytes Percent Auto 5.1 % (2-11); Neutrophils Absolute Auto 7.6 x10*3/uL (2.0-8.3); Neutrophils Percent Auto 69.2 % (45-73); PLT CLUMP 1; Red Blood Count 5.08 X10*6/uL (4.20-5.50); Red Cell Distribution Width 12.3 % (11.0-16.0); SCAN SMEAR FLAG 1
[2024-07-19 10:24] LABS: Estimated Average Glucose 111 mg/dL; Hemoglobin A1c % 5.5 % (<6.0); Total Hemoglobin (HGBA1C) 3769.5585 umol/L
[2024-07-19 10:49] LABS: Alanine Aminotransferase 27 U/L (0-31); Albumin Level 4.3 g/dL (3.5-5.0); Alkaline Phosphatase 42 U/L (39-117); Anion Gap 14 (12-20); Aspartate Amino Transferase 31 U/L (5-31); Bilirubin Total 0.4 mg/dL (0.0-1.0); Blood Urea Nitrogen 14 mg/dL (9-16); Calcium 9.4 mg/dL (8.4-10.2); Carbon Dioxide 28 mmol/L (22-29); Chloride 102 mmol/L (96-108); Cholesterol 138 mg/dL (<200); Estimated Glomerular Filt Rate > 60; Glucose Fasting 93 mg/dL (60-99); HDL Cholesterol 44 mg/dL (>40); LDL Cholesterol Calculated 68 mg/dL (<100); Mean Platelet Volume 11.6 fL (9.4-12.3); Platelet Count 192 X10*3/uL (160-400); Potassium 4.6 mmol/L (3.3-5.1); Sodium 139 mmol/L (135-145); Triglycerides 131 mg/dL (<150)
[2024-07-19 10:50] LABS: SLIDE REVIEW VERIFIED
[2024-07-19 11:04] LABS: TSH reflex Free T4 1.55 uIU/mL (0.32-4.0); Vitamin D 25-OH Total 22.3 ng/mL (>30)
== END 2024-07-19 09:23 | disposition home or self-care (01) ==
LOC: HO.LAB 09:22
DX: K21.9 Gastro-esophageal reflux disease without esophagitis (principal); E66.01 Morbid (severe) obesity due to excess calories; Z68.43 Body mass index [BMI] 50.0-59.9, adult; J45.909 Unspecified asthma, uncomplicated; G47.30 Sleep apnea, unspecified; Z13.1 Encounter for screening for diabetes mellitus; Z00.00 Encounter for general adult medical examination without abnormal findings
CPT/HCPCS: 36415; 80053; 80061; 82306; 83036; 84443; 85025

== ENCOUNTER → 2024-07-25 11:00 | Outpatient (REF) | payer MEDICARE, MEDICAID, SELFPAY | LOC: HO.SL 11:00 | DX: G47.30 Sleep apnea, unspecified (principal) | CPT/HCPCS: 95806 ==

== ENCOUNTER → 2024-07-25 11:04 | Outpatient (BNV) | payer MEDICARE, MEDICAID, SELFPAY | PROVIDERS: Visit Provider Internal Medicine | DX: G47.33 Obstructive sleep apnea (adult) (pediatric) (principal) | CPT/HCPCS: 95806 ==

== ENCOUNTER 2024-09-03 13:25 | Outpatient (AMB) | payer MEDICARE, MEDICAID, SELFPAY ==
--- NOTE | 2024-09-03 14:20 | A.OFFVIS_ITS ---
Vital Signs 09/03/24 14:21 Height 5 ft 1 in Weight 295 lb 6.711 oz BMI 55.8 BP 112/84 Blood Pressure Location Lt radial Position Sitting Pulse 62 Pulse Source Pulse Oximeter Pulse Oximetry (%) 96 Oxygen Delivery Method Room Air Intake Visit Reasons: Obstructive sleep apnea Intake Note: Pt is here to talk about sleep study results, she is tired all day and also snores so loudly, she wakes herself up, she can sleep all day long but does not feel rested. Table Games Dual Rate Supervisor Required: No Allergies aspirin Allergy (Severe, Verified 09/03/24 14:56) Anaphylaxis Quinolones Allergy (Severe, Verified 09/03/24 14:56) Anaphylaxis Sulfa (Sulfonamide Antibiotics) Allergy (Severe, Verified 09/03/24 14:56) Anaphylaxis Medication List - Last Reconciled 09/03/24 by Mariel Chopra MD acetaminophen ER (Tylenol 8 Hour) 1,300 mg PO Q12H albuterol sulfate 90 mcg/actuation 2 puffs inhalation Q4-6H PRN amitriptyline 100 mg PO BEDTIME amitriptyline 75 mg PO BEDTIME aripiprazole 20 mg PO DAILY atenolol 25 mg PO DAILY azelastine 1 spray intranasal BID cholecalciferol (vitamin D3) 25 mcg PO DAILY epinephrine (EpiPen 2-Adolfo) 0.3 mg (0.3 mL) IM Q10M PRN famotidine (Pepcid) 20 mg PO BEDTIME fenofibrate nanocrystallized 145 mg PO DAILY fluticasone propionate 50 mcg/actuation 1 spray intranasal BID gabapentin 100 mg PO DAILY gabapentin 300 mg PO BEDTIME melatonin 5 mg PO BEDTIME PRN montelukast 10 mg PO QPM omeprazole 40 mg PO DAILY venlafaxine ER 75 mg PO DAILY venlafaxine ER 150 mg PO DAILY Do you need a note to return to daycare/school/sports/work: No HPI HPI Obstructive sleep apnea: Details: THIS 53 YEARS OLD FEMALE WITH MORBID OBESITY AND HISTORY OF OBSTRUCTIVE SLEEP APNEA IS BEING SEEN BY ME FOR THE 1ST TIME BECAUSE OF GROSSLY ABNORMAL SLEEP STUDY.. SHE HAS HISTORY OF BEING OVERWEIGHT THROUGHOUT HER ADULT LIFE, BUT IN THE LAST 5 YEARS HAS PUT ON WEIGHT MORE AGGRESSIVELY. ALSO HAS HISTORY OF DIFFICULTY IN SLEEPING AT NIGHT, FREQUENT AWAKENINGS WITH GASPING LIKE FEELING, VERY LOUD SNORING AND EXCESSIVE DAYTIME SLEEPINESS . SHE TELLS ME THAT SHE HAD A SLEEP STUDY IN [place] ABOUT 1 AND HALF YEAR AGO AND WAS STARTED ON CPAP, HAVING DIFFICULTY IN USING THE CPAP. WHEN [facility] C[facility] , SHE DID NOT BRING HER CPAP MACHINE AND IT GOT LOST. OVER HERE SHE WAS HAVING INCREASING AMOUNT OF DIFFICULTY IN SLEEPING WITH EXCESSIVE DAYTIME SLEEPINESS. SHE HAD HOME-BASED SLEEP STUDY ON 07/25 2024. IT SHOWS VERY VERY SEVERE OBSTRUCTIVE SLEEP APNEA WITH TOTAL SLEEP TIME AHI 76, AND NOCTURNAL HYPOXEMIA WITH O2 SAT BELOW 88% FOR 96 MINUTES AN IN-LAB CPAP TITRATION STUDY WAS RECOMMENDED. SHE IS HERE TODAY TO DISCUSS FOR THE PLANS, AND WANTS TO BE STARTED ON DEFINITE IT TREATMENT SOON POSSIBLE BECAUSE SHE IS HAVING HARD TIME TO SLEEP GOOD. [facility] Medical History (Updated 09/03/24 @ 15:23 by Mariel Chopra MD) Nocturnal hypoxemia GERD (gastroesophageal reflux disease) IBS (irritable bowel syndrome) Asthma Sleep apnea History of torn meniscus of left knee Degenerative disc disease, cervical Surgical History Hx of cholecystectomy Hx of section Family History Father Congestive heart failure COPD (chronic obstructive pulmonary disease) Mother Diabetes Mental health problem Daughter Ovarian cancer Daughter No problems noted. Son No problems noted. Son No problems noted. Son No problems noted. Social History Household Members: Family Housing: House Alcohol intake: never Patient Tobacco Use Status: Never used Tobacco e-Cigarette/Vaping Use: Never Used Second Hand Smoke Exposure: No service: No Current occupational status: disabled Cognitive needs: Yes (Walker) Hearing needs: No Vision needs: Yes (Glasses) Review of Systems Const All systems reviewed & are unremarkable except as noted in HPI and below Reports snoring (LOUD) Eyes Reports no additional complaints ENT Reports no additional complaints Card Denies chest pain, Denies irregular heart rhythm and Reports leg edema Resp Denies cough, Reports snoring (LOUD) and Denies wheezing GI Reports heartburn (FREQUENT HEARTBURN AFTER EATING) Reports no additional complaints Musc Reports back pain and Reports muscle weakness Skin/Breast Reports system reviewed and no additional complaints, except as documented Neuro Reports no additional complaints Psych Reports anxiety and Reports mood swings Endo Reports no additional complaints Tony/Lymph Reports no additional complaints Aller/Immun Reports no additional complaints and Denies wheezing Physical Exam Vital Signs: Last Vital Signs Pulse 62 09/03/24 14:21 BP 112/84 09/03/24 14:21 Pulse Ox 96 09/03/24 14:21 Oxygen Delivery Method Room Air 09/03/24 14:21 BMI result Body Mass Index 55.8 VERY VERY OBESE WITH A ROUND FACE AND SHORT NECK Const General: comfortable, no acute distress, alert and awake Orientation/consciousness: patient oriented x3 HEENT Head: Yes normal to inspection General nose exam: No nasal polyps present and No nasal discharge present Face and sinus: Yes sinuses nontender Mouth: oropharynx abnormals (NARROW AND CROWDED OROPHARYNX, MALLAMPATI CLASS 4) Throat: Yes posterior oropharynx normal Eyes General: appearance normal, both eyes and all related structures Neck Neck: Yes normal visual inspection, Yes no lymphadenopathy, Yes trachea midline, Yes no JVD and Yes other (NECK SIZE 16 AND HALF INCH ) Thyroid: Thyroid normal Chest Chest palpation & inspection: normal inspection of the chest, normal palpation of entire chest wall and no tenderness Resp Effort & Inspection: normal respiratory effort Auscultation: clear to auscultation bilaterally Cardio Palpation: PMI not normal (NOT PALPABLE) Rate: regular rate Rhythm: regular rhythm Heart sounds: no gallops and no murmurs Peripheral pulses: Peripheral pulses 2+ throughout GI Palpation (GI): Soft to palpation, nontender, No hepatosplenomegaly present, no masses and Other GI palpation findings present (ABDOMEN IS GROSSLY OBESE AND PROTUBERANT) Auscultation: normal bowel sounds Back/Spine/Pelvis Thoracic/Lumbar Spine: thoracic and lumbar spine normal to inspection and thoraco-lumbar ROM limited Skin General skin exam: no rashes or lesions noted Neuro General: patient oriented x3 and no focal motor deficits Cranial nerves: Yes CN's II-XII intact bilaterally Extrem General: Yes normal to inspection, Yes no clubbing, cyanosis or edema, Yes no calf tenderness and Yes other (BOTH LEGS ARE VERY BULKY BUT NO PITTING EDEMA) Psych Appearance: grossly normal and well kempt Speech and movement: Normal speech and movement present Results Reviewed Results Reviewed: HOME-BASED SLEEP STUDY. TOTAL SLEEP TIME AHI 76.5, SNORING FOR. 9% OF THE SLEEP TIME LOWEST O2 SAT 75% AVERAGE O2 SAT 92% AND O2 SAT BELOW 88% FOR 96.2 Assessment & Plan Assessment & Plan (1) Morbid obesity with BMI of 50.0-59.9, adult: Comment: SHE HAS HISTORY OF MORBID OBESITY DURING THE PAST 5 YEARS OR MORE. NOT ABLE TO DO MUCH WALKING OR EXERCISE. DOES NOT HAVE MUCH CONTROL ON DIET. Code(s): E66.01 - Morbid (severe) obesity due to excess calories; Z68.43 - Body mass index [BMI] 50.0-59.9, adult Category: Medical Plan: ONCE HE STARTS USING THE CPAP AND IS MORE ENERGETIC SHE WILL NEED TO START AN EXERCISE PROGRAM. WELL WEIGHT REDUCTION PROGRAM (2) MAHOGANY (obstructive sleep apnea): Comment: SHE DOES HAVE VERY VERY SEVERE OBSTRUCTIVE SLEEP APNEA WITH NOCTURNAL HYPOXEMIA Code(s): G47.33 - Obstructive sleep apnea (adult) (pediatric) Category: Medical Plan: SHE SHOULD HAVE CPAP TITRATION IN THE SLEEP LAB TO DETERMINE THE OPTIMAL INTERFACE, OPTIMAL PRESSURE, AND TO ENSURE THAT NOCTURNAL HYPOXEMIA GETS CORRECTED. (3) Asthma: Comment: SHE HAS HISTORY OF MILD INTERMITTENT WHEEZES, SUGGESTING MILD INTERMITTENT BRONCHIAL ASTHMA Code(s): J45.909 - Unspecified asthma, uncomplicated Category: Medical Qualifiers: Asthma severity: unspecified severity Asthma persistence: unspecified Asthma complication type: unspecified Qualified Code(s): J45.909 - Unspecified asthma, uncomplicated Plan: MONTELUKAST 10 MG ONCE A DAY ALBUTEROL HFA 2 PUFFS Q 6 HOURS P.R.N. (4) Nocturnal hypoxemia: Comment: NOCTURNAL HYPOXEMIA IS PART OF MAHOGANY/HYPOVENTILATION. Code(s): G47.34 - Idiopathic sleep related nonobstructive alveolar hypoventilation Category: Medical Plan: IN THE SLEEP LAB, DURING CPAP TITRATION IT MAY GET CORRECTED BY USE OF CPAP, AND IF THERE IS RESIDUAL HYPOXEMIA THAT WILL BE CORRECTED BY O2 SUPPLEMENTATION Orders: Orders RT PSG in-lab sleep titration Today E66.01 - Morbid (severe) obesity due to excess calories, G47.33 - Obstructive sleep apnea (adult) (pediatric), G47.34 - Idiopathic sleep related nonobstructive alveolar hypoventilation, Z68.43 - Body mass index [BMI] 50.0-59.9, adult Coding Level of Care Code New Pt Level 3 (35630) Diagnoses Morbid obesity with BMI of 50.0-59.9, adult E66.01; Z68.43 MAHOGANY (obstructive sleep apnea) G47.33 Asthma, unspecified asthma severity, unspecified whether complicated, unspecif ied whether persistent J45.909 Asthma severity: unspecified severity Asthma persistence: unspecified Asthma complication type: unspecified Nocturnal hypoxemia G47.34
[2024-09-03 14:21] VITALS: BP 112/84; PULSE 62; O2SAT 96; BMI 55.8
== END 2024-09-03 14:54 | disposition home or self-care (01) ==
LOC: HO.HPS 13:26
PROVIDERS: Referring Provider Physician Assistant; Visit Provider Internal Medicine
DX: E66.01 Morbid (severe) obesity due to excess calories (principal); Z68.43 Body mass index [BMI] 50.0-59.9, adult; G47.33 Obstructive sleep apnea (adult) (pediatric); J45.909 Unspecified asthma, uncomplicated; G47.34 Idiopathic sleep related nonobstructive alveolar hypoventilation
CPT/HCPCS: 99203

== ENCOUNTER → 2024-09-03 13:25 | Outpatient (BNVA) | payer MEDICARE, MEDICAID, SELFPAY | PROVIDERS: Referring Provider Physician Assistant; Visit Provider Internal Medicine | DX: G47.33 Obstructive sleep apnea (adult) (pediatric) (principal); E66.01 Morbid (severe) obesity due to excess calories; Z68.43 Body mass index [BMI] 50.0-59.9, adult; J45.909 Unspecified asthma, uncomplicated | CPT/HCPCS: 99202 ==

== ENCOUNTER 2024-09-05 10:00 | Outpatient (RCR) | payer MEDICARE, MEDICAID, SELFPAY ==
--- NOTE | 2024-08-21 10:59 | MHC.PT.EP ---
[facility] [place] Office [place] Office [place] Office [address] Mariela Clay [address] [phone] F: [phone] F: [phone] F: [phone] F: [phone] Physical Therapy Plan of Care Date of Evaluation: 08/21/24 Date of Surgery: n/a Diagnosis: cervicalgia Assessment: Patient is a 53 year old female presenting to PT with complaints of pain in her neck. 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 She presents today with impairments in pain, cervical ROM, shoulder ROM, posture. Pt's current occupation is none, with baseline physical activities including dressing, bathing. Pt expresses custodial goal of reducing pain, and is motivated to work towards this in PT. Clinical presentation today is most consistent with signs and sx associated with neck pain and pt will benefit from skilled PT 2 week x 4 weeks to address the following problems and impairments noted upon evaluation: pain, cervical ROM, shoulder ROM, posture. These problems limit the patient with the following functional activities: standing, lifting, bathing, dressing. The prescribed treatment plan of care is medically necessary. Co-morbidities of none were identified and taken into considerations of plan of care. Pt was educated on HEP, role of PT, prognosis, POC. Frequency and Duration: The patient will be seen 2 x week x 4 weeks Short Term Goals: Pt will demonstrate pain at rest < 5/10 in 2 weeks. Pt will demonstrate improved posture as evidence by min to no cues during the session in 2 weeks. Pt will demonstrate improved shoulder strength by 1/3 grade in 2 weeks. Fibreglass Laminator Goals: Pt will demonstrate improved NDI score by 10% in 4 weeks for improved functional mobility. Pt will demonstrate ability to dress herself with less difficulty and pain in 4 weeks for return to PLOF. Treatment Plan: Modalities to reduce pain, spasms and effusion. Manual therapy to restore motion and function. Therapeutic exercise to improve strength and flexibility. Neuromuscular re-education for posture and balance. Therapeutic activities to return to functional activities of daily living. Electronically signed by: Lia Gloria, PT, DPT, ATC Please sign and return to therapist. Thank you for your referral.
--- NOTE | 2024-10-05 06:36 | MHC.PT.DC ---
[facility] [place] Office [place] Office [place] Office [address] [phone] F: [phone] F: [phone] F: [phone] F: [phone] Physical Therapy Discharge Report Diagnosis: cervicalgia Date of Surgery: n/a Date of Evaluation: 08/21/24 Date of Discharge: 10/05/24 Treatments to Date: 2 Cancellations to Date: 3 No Shows to Date: 0 Discharge Status: Patient Elected to Stop Discharge Summary: Pt has not returned to skilled PT in > 30 days therefore to be d/c per policy. Electronically signed by: Lia Gloria, PT, DPT, ATC Please sign and return to therapist. Thank you for your referral.
== END 2024-10-05 06:36 | disposition home or self-care (01) ==
LOC: HO.PTCHIC 10:00
DX: M50.30 Other cervical disc degeneration, unspecified cervical region (principal)
CPT/HCPCS: 97110; 97161

== ENCOUNTER 2024-09-13 09:53 | Outpatient (AMB) | payer OTHER, SELFPAY ==
--- NOTE | 2024-09-13 10:05 | A.OFFVIS_ITS ---
Vital Signs 3 09/13/24 10:36 Height 5 ft 2 in Weight 295 lb 6.711 oz BMI 54.0 BP 107/57 L Blood Pressure Location Lt brachial Position Sitting Pulse 65 Intake Visit Reasons: colo screen Intake Note: New patient in office today for colonoscopy screening. CC: Patient c/o constipation alternating with diarrhea, lower abdominal pain, and fecal incontinence. She also c/o having nausea sometimes. Epic Radiant Analyst Required: No Accompanied by: Self / Same As Patient Allergies aspirin Allergy (Severe, Verified 09/13/24 10:41) Anaphylaxis Quinolones Allergy (Severe, Verified 09/13/24 10:41) Anaphylaxis Sulfa (Sulfonamide Antibiotics) Allergy (Severe, Verified 09/13/24 10:41) Anaphylaxis HPI HPI colo screen: Details: 53-year-old female here for preprocedural meeting to discuss a screening colonoscopy. She is referred by Ernesto Portillo. PMX Asthma Morbid obesity MAHOGANY High cholesterol Depression with anxiety GERD Cervical degenerative disc disease Urinary incontience CIC alt with diarrhea * SURGICAL HISTORY Cholecystectomy section * ALLERGIES Aspirin Quinolones Sulfa * Rentlytics LABS: Laboratory Tests 07/19/24 10:03 WBC 11.0 H Hgb 15.3 Hct 47.5 H Plt Count 192 Estimated GFR > 60 Hemoglobin A1c % 5.5 Total Bilirubin 0.4 AST 31 ALT 27 Alkaline Phosphatase 42 TSH 1.55 TODAY'S VISIT She had a prior colonoscopy at age 12 for IBS, non for screening. she suffers IBS-C for which I recommend fiber (she is s/p ajit and this may be a c/f to her diarrheal phases), and she has GERD controlled by omeprazole. We discussed the utilization of fiber therapy to control between constipation and diarrhea and I recommend Benefiber or Citrucel twice a day. It is unclear how well she avoids fatty or fried foods. She admits that she really likes to take in a lot of bread products. Her asthma is well controlled and she has MAHOGANY, no cardiac problems. There are no prior problems with anesthesia or sedation. No ID problems currently but she had MRSA in 2009. Family history of colon polyps in mother. [facility] Medical History (Updated 09/13/24 @ 11:32 by MARIAELENA Biggs) Rhinosinusitis Nocturnal hypoxemia Sleep apnea Left knee pain Back pain History of torn meniscus of left knee Breast cancer screening Routine gynecological examination Encounter for colorectal cancer screening Annual physical exam GERD (gastroesophageal reflux disease) IBS (irritable bowel syndrome) Asthma Degenerative disc disease, cervical Surgical History (Updated 09/13/24 @ 10:38 by MARK Jose) History of esophagogastroduodenoscopy (EGD) H/O colonoscopy Hx of cholecystectomy Hx of section Family History (Updated 09/13/24 @ 10:51 by MARK Jose) Father Congestive heart failure COPD (chronic obstructive pulmonary disease) Mother Diabetes Mental health problem Intestinal obstruction Daughter Ovarian cancer Daughter No problems noted. Son No problems noted. Son No problems noted. Son No problems noted. Social History Household Members: Family Housing: House Alcohol intake: never Patient Tobacco Use Status: Never used Tobacco e-Cigarette/Vaping Use: Never Used Second Hand Smoke Exposure: No service: No Current occupational status: disabled Cognitive needs: Yes (Walker) Hearing needs: No Vision needs: Yes (Glasses) Review of Systems Const Denies fatigue, Denies fever(s), Denies night sweats, Denies poor appetite and Denies weight loss Eyes Details: Glasses Reports requires corrective lenses ENT Reports Normal hearing present, Denies dysphagia, Denies odynophagia, Denies throat swelling and Denies tongue swelling Card Reports no additional complaints Resp Reports no additional complaints GI Details: Denies abdominal pain, Denies melena, Denies bloating, Denies hematochezia, Reports constipation, Denies GI cramping, Denies dysphagia, Denies excessive flatus, Denies early satiety, Reports heartburn, Reports diarrhea, Denies nausea, Denies odynophagia, Denies vomiting and Denies hematemesis Skin/Breast Denies pruritus, Denies lesions, Denies rash and Denies jaundice Neuro Reports Normal hearing present and Denies Abnormal speech present Endo Denies fatigue Aller/Immun Denies throat swelling and Denies tongue swelling Physical Exam Vital Signs: Last Vital Signs Pulse 65 09/13/24 10:36 BP 107/57 L 09/13/24 10:36 BMI result Body Mass Index 54.0 Const General: cooperative, no acute distress, well developed and well groomed Nutritional Appearance: well nourished and obese other (Super obesity) Orientation/consciousness: oriented to person, oriented to place and oriented to time Limitations: No language barrier HEENT Head: Yes normocephalic and Yes atraumatic Eyes General: appearance normal, both eyes and all related structures Pupils: Equal, round and reactive pupils present Neck Neck: Yes normal visual inspection and Yes no lymphadenopathy Thyroid: Thyroid normal Resp Effort & Inspection: normal respiratory effort and able to speak in complete sentences Auscultation: clear to auscultation bilaterally Cardio Rate: regular rate Rhythm: regular rhythm Heart sounds: Normal, physiologic split S2 sound present Peripheral pulses: radial pulses present (Delicate) and posterior tibial pulses present (Difficult to palpate related to body habitus) GI Inspection: No distended, Yes Abdominal panniculus present and Yes obesity Palpation (GI): Soft to palpation, nontender, no guarding, not rigid and No hepatosplenomegaly present Percussion: Yes normal to percussion Auscultation: normal bowel sounds Rectal Exam - Female: deferred Abdomen image: 2 1. Surgical scars 2. Skin General skin exam: no rashes or lesions noted, turgor normal, skin not dry, no jaundice, No spider nevi and no striae Rashes: no rashes Nails: normal Neuro General: oriented to person, oriented to place and oriented to time Cranial nerves: Yes Equal, round and reactive pupils present and Yes Normal hearing present Speech: No Abnormal speech present Extrem General: Yes normal to inspection, No clubbing, No cyanosis and Yes edema Psych Appearance: grossly normal and well kempt Mental Status: mental status grossly normal Speech and movement: Normal speech and movement present Affect: normal affect Attitude: cooperative Thought process: Normal thought process present and not confabulating Thought content: Normal thought content present Insight: Fair insight present (Psych) Judgement: Fair judgement present (Psych) Assessment & Plan Assessment & Plan (1) Pre-op examination: Code(s): Z01.818 - Encounter for other preprocedural examination Category: Medical (2) Family history of polyps in the colon: Comment: Mother Code(s): Z83.719 - Family history of colon polyps, unspecified Category: Medical (3) Asthma: Comment: SHE HAS HISTORY OF MILD INTERMITTENT WHEEZES, SUGGESTING MILD INTERMITTENT BRONCHIAL ASTHMA Code(s): J45.909 - Unspecified asthma, uncomplicated Category: Medical Qualifiers: Asthma complication type: unspecified Asthma persistence: unspecified Asthma severity: unspecified severity Qualified Code(s): J45.909 - Unspecified asthma, uncomplicated (4) Morbid obesity with BMI of 50.0-59.9, adult: Comment: SHE HAS HISTORY OF MORBID OBESITY DURING THE PAST 5 YEARS OR MORE. NOT ABLE TO DO MUCH WALKING OR EXERCISE. DOES NOT HAVE MUCH CONTROL ON DIET. Code(s): E66.01 - Morbid (severe) obesity due to excess calories; Z68.43 - Body mass index [BMI] 50.0-59.9, adult Category: Medical (5) MAHOGANY (obstructive sleep apnea): Comment: SHE DOES HAVE VERY VERY SEVERE OBSTRUCTIVE SLEEP APNEA WITH NOCTURNAL HYPOXEMIA Code(s): G47.33 - Obstructive sleep apnea (adult) (pediatric) Category: Medical Plan She had a prior colonoscopy at age 12 for IBS, non for screening. she suffers IBS-C for which I recommend fiber (she is s/p ajit and this may be a c/f to her diarrheal phases), and she has GERD controlled by omeprazole. We discussed the utilization of fiber therapy to control between constipation and diarrhea and I recommend Benefiber or Citrucel twice a day. It is unclear how well she avoids fatty or fried foods. She admits that she really likes to take in a lot of bread products. Her asthma is well controlled and she has MAHOGANY, no cardiac problems. There are no prior problems with anesthesia or sedation. No ID problems currently but she had MRSA in 2009. Family history of colon polyps in mother. Orders: Orders 2 Colonoscopy - GI Use Only Today E66.01 - Morbid (severe) obesity due to excess calories, G47.33 - Obstructive sleep apnea (adult) (pediatric), J45.909 - Unspecified asthma, uncomplicated, Z01.818 - Encounter for other preprocedural examination, Z68.43 - Body mass index [BMI] 50.0-59.9, adult Medications: New 2 bisacodyl (Dulcolax (bisacodyl)) For colonoscopy screening 10 mg (2 x 5 mg) PO BEDTIME 4 tabs 0RF 2 days peg 3350-electrolytes 236-22.74-6.74 -5.86 gram (Golytely) until fecal effluent is clear; do not exceed a total volume of 2,000 mL 240 mL PO Q10M 4,000 mL 0RF 1 day Z12.11 - Encounter for screening for malignant neoplasm of colon Coding Level of Care Code New Pt Level 3 (00353) Diagnoses Pre-op examination Z01.818 Family history of polyps in the colon Z83.719 Asthma, unspecified asthma severity, unspecified whether complicated, unspecified whether persistent J45.909 Asthma complication type: unspecified Asthma persistence: unspecified Asthma severity: unspecified severity Morbid obesity with BMI of 50.0-59.9, adult E66.01; Z68.43 MAHOGANY (obstructive sleep apnea) G47.33
[2024-09-13 10:36] VITALS: BP 107/57; PULSE 65; BMI 54.0
== END 2024-09-13 11:33 | disposition home or self-care (01) ==
LOC: HO.HGI 09:53
PROVIDERS: Visit Provider Nurse Practitioner
DX: Z01.818 Encounter for other preprocedural examination (principal); Z12.11 Encounter for screening for malignant neoplasm of colon; Z83.719 Family history of colon polyps, unspecified; J45.909 Unspecified asthma, uncomplicated; E66.01 Morbid (severe) obesity due to excess calories; Z68.43 Body mass index [BMI] 50.0-59.9, adult; G47.33 Obstructive sleep apnea (adult) (pediatric)
CPT/HCPCS: 99203

== ENCOUNTER 2024-09-21 10:17 | Outpatient (AMB) | payer MEDICARE, SELFPAY ==
--- NOTE | 2024-09-21 10:23 | A.OFFVIS_ITS ---
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 Patient was seen by her PCP where she reported meniscus tear from a fall around 2019, surgical intervention was not done. Patient reported ongoing pain and not able to go up stairs, she was referred to orthopedics. Today patient reports that her knee gives out frequently. She has constant pain that is located at the medial aspect of knee. No other treatments for her knee. Finds little relief with use of Tylenol arthritis BID. Allergies aspirin Allergy (Severe, Verified 09/21/24 10:33) Anaphylaxis Quinolones Allergy (Severe, Verified 09/21/24 10:33) Anaphylaxis Sulfa (Sulfonamide Antibiotics) Allergy (Severe, Verified 09/21/24 10:33) Anaphylaxis Medication List - Last Reconciled 09/21/24 by Alejandro Capps PA-C acetaminophen ER (Tylenol 8 Hour) 1,300 mg PO Q12H albuterol sulfate 90 mcg/actuation 2 puffs inhalation Q4-6H PRN amitriptyline mg PO aripiprazole 20 mg PO DAILY atenolol 25 mg PO DAILY azelastine 1 spray intranasal BID bisacodyl (Dulcolax (bisacodyl)) 10 mg (2 x 5 mg) PO BEDTIME 2 days buspirone 10 mg PO QPM cholecalciferol (vitamin D3) 25 mcg PO DAILY epinephrine (EpiPen 2-Adolfo) 0.3 mg (0.3 mL) IM Q10M PRN famotidine (Pepcid) 20 mg PO BEDTIME fenofibrate nanocrystallized 145 mg PO DAILY fluticasone propionate 50 mcg/actuation 1 spray intranasal BID gabapentin 100 mg PO DAILY gabapentin 300 mg PO BEDTIME montelukast 10 mg PO QPM omeprazole 40 mg PO DAILY peg 3350-electrolytes 236-22.74-6.74 -5.86 gram (Golytely) 240 mL PO Q10M 1 day venlafaxine ER 75 mg PO DAILY venlafaxine ER 150 mg PO DAILY HPI 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 She states she fell about 5 years ago and its been hurting since . She states she was told she had a meniscus tear but did not have surgery. She states over the last several years she has been trying to manage the pain with otc medication. She states when she is walking she feels the knee wants to give out. She cannot do stairs due to pain. She has not done PT. [facility] Medical History (Updated 09/13/24 @ 11:32 by MARIAELENA Biggs) Rhinosinusitis Nocturnal hypoxemia Sleep apnea Left knee pain Back pain History of torn meniscus of left knee Breast cancer screening Routine gynecological examination Encounter for colorectal cancer screening Annual physical exam GERD (gastroesophageal reflux disease) IBS (irritable bowel syndrome) Asthma Degenerative disc disease, cervical Surgical History History of esophagogastroduodenoscopy (EGD) H/O colonoscopy Hx of cholecystectomy Hx of section Family History (Updated 09/13/24 @ 10:51 by Giorgi Sheridan [facility]) Father Congestive heart failure COPD (chronic obstructive pulmonary disease) Mother Diabetes Mental health problem Intestinal obstruction Daughter Ovarian cancer Daughter No problems noted. Son No problems noted. Son No problems noted. Son No problems noted. Social History Household Members: Family Housing: House Alcohol intake: never Patient Tobacco Use Status: Never used Tobacco e-Cigarette/Vaping Use: Never Used Second Hand Smoke Exposure: No service: No Current occupational status: disabled Cognitive needs: Yes (Walker) Hearing needs: No Vision needs: Yes (Glasses) Review of Systems Const All systems reviewed & are unremarkable except as noted in HPI and below Physical Exam Vital Signs: BMI result Body Mass Index 54.0 Const General: cooperative and no acute distress Orientation/consciousness: patient oriented x3 Resp Effort & Inspection: normal respiratory effort and able to speak in complete sentences Cardio Peripheral pulses: Peripheral pulses 2+ throughout Neuro General: patient oriented x3 Extrem Other: Left knee normal to inspection . Lateral retropatellar tenderness present, full ROM with crepitus. Mild TTP medial jointline. NVI. Results Reviewed Results Reviewed: Xrays were obtained in the office today and personally reviewed by me of the left knee show medial and PF compartment oa Assessment & Plan Assessment & Plan (1) Osteoarthritis of left knee: Code(s): M17.12 - Unilateral primary osteoarthritis, left knee Category: Medical Plan: We discussed options today which includes physical therapy for strength and conditioning. She has an allergy to sulfa therefore I gave her a cream to help with her discomfort. The cream is local and not systemic so I advised that she try a small area to see if she has any reaction and also discuss with the pharmacist if there is concerns. I also stressed the importance of weight loss to help in her symptom management. If symptoms persist or worsen she will contact our office to discuss steroid injection otherwise follow up as needed. Orders: Orders XR knee standing BI Today M25.561 - Pain in right knee, M25.562 - Pain in left knee PT Evaluation and Treatment Today M17.12 - Unilateral primary osteoarthritis, left knee Medications: New diclofenac sodium 1% apply to single knee, ankle, foot; for foot includes sole/toes/top of foot 4 grams topical QID 100 grams 0RF 30 days Coding Level of Care Code New Pt Level 3 (94226) Complex EM visit Add On G2211 Diagnoses Osteoarthritis of left knee M17.12
[2024-09-21 10:29] VITALS: BMI 54.0
== END 2024-09-21 11:37 | disposition home or self-care (01) ==
LOC: HO.HOS 10:17
PROVIDERS: Visit Provider Physician Assistant
DX: M17.12 Unilateral primary osteoarthritis, left knee (principal)
CPT/HCPCS: 99203; G2211

== ENCOUNTER → 2024-09-21 10:22 | Outpatient (BNV) | payer OTHER, SELFPAY | PROVIDERS: Visit Provider Radiology Diagnostic Radiology | DX: M17.0 Bilateral primary osteoarthritis of knee (principal) | CPT/HCPCS: 73565 ==

== ENCOUNTER 2024-09-21 10:30 | Outpatient (REF) | payer MEDICARE, SELFPAY ==
--- NOTE | ~2024-09-21 | XR_ITS ---
EXAMINATION: XR KNEE AP STANDING CLINICAL INFORMATION: M25.561 - Pain in right knee COMPARISON: X-ray, left knee, dated June 08, 2024 TECHNIQUE: AP bilateral standing view of the knees was obtained. FINDINGS: There is joint space narrowing involving the medial compartment of the left knee and to a lesser extent the right knee. No acute cortical disruption or gross malalignment. No lytic or blastic lesions. No gross chondrocalcinosis. Marginal osteophyte formation and syndesmophyte femoral condyles and tibial plateau involving mostly the left knee. Patient's large body habitus. XR/XR knee standing BI IMPRESSION: Bicompartmental osteoarthrosis/osteoarthritis involving mostly the medial compartment, moderate to severe on the left knee and [id number] on the right knee. Electronically signed by: Gerard Rivera MD 09/21/2024 11:05 AM EDT
== END 2024-09-21 10:31 | disposition home or self-care (01) ==
LOC: HO.HOSX 10:30
PROVIDERS: Visit Provider Physician Assistant
DX: M17.12 Unilateral primary osteoarthritis, left knee (principal); M25.562 Pain in left knee; Z88.2 Allergy status to sulfonamides; Z79.899 Other long term (current) drug therapy
CPT/HCPCS: 73565; 99202

== ENCOUNTER 2024-09-27 08:25 | Outpatient (AMB) | payer MEDICARE, SELFPAY ==
--- NOTE | 2024-09-27 08:38 | A.OFFPC_ITS ---
Vital Signs 09/27/24 09:06 Height 5 ft 2 in Weight 296 lb 1.293 oz BMI 54.1 BP 130/70 Blood Pressure Location Lt brachial Position Sitting Pulse 64 Pulse Source Pulse Oximeter Temp 96.6 F L Temp Source Temporal Artery Scan Pulse Oximetry (%) 95 Oxygen Delivery Method Room Air Intake Visit Reasons: 3 mo follow up asthma, GERD/Sleep apnea Intake Note: Patient is here to follow up on Asthma, GERD, Sleep apnea. Digital Librarian Required: No Contract Paralegal: Not Required per policy Accompanied by: Self / Same As Patient Allergies aspirin Allergy (Severe, Verified 09/27/24 09:06) Anaphylaxis Quinolones Allergy (Severe, Verified 09/27/24 09:06) Anaphylaxis Sulfa (Sulfonamide Antibiotics) Allergy (Severe, Verified 09/27/24 09:06) Anaphylaxis Tobacco use date assessed: 09/27/24 Dental Screening Dental Screen Date: 06/27/24 HPI 3 mo follow up asthma, GERD/Sleep apnea HPI Details The patient is a 53-year-old female presenting for follow up appointment on chronic conditions. She is here today with concerns of with knee pain, neck pain, sleep apnea, and weight management. The patient is morbid obesity with severe arthritis making it difficulty for her to walk. The has obstructive sleep apnea and asthma complicating her mobility. The knee pain has been persistent, and the patient has previously consulted orthopedics, who provided a cramp that was ineffective. The patient was advised to contact orthopedics for further evaluation, possibly considering injections. Neck pain has been an ongoing issue, and the patient was supposed to receive four therapy sessions but only attended one due to scheduling conflicts and an emergency. A new referral for therapy was discussed to address this issue. The patient has sleep apnea and is awaiting a new CPAP machine study to ensure the correct settings are applied. The importance of having the correct settings was emphasized to avoid ineffective treatment. Hypertension management was discussed, with the patient's blood pressure consistently around 130/70 mmHg. Gastroesophageal reflux disease is managed with omeprazole, and the patient requested a refill. Hyperlipidemia is managed with fenofibrate, and the patient confirmed the medication was refilled. Preventative care measures include a mammogram for breast cancer screening and a colonoscopy for colon cancer screening. The patient's mental health is stable, though she experiences emotional challenges related to family separation between [place] and her current location. pt of the knee, need a new referral for the neck pain-only received on session so far and she was schedule to have 4 sesssions. The patient is a 53-year-old female presenting with knee pain, neck pain, and sleep apnea. The patient is morbid obesity with severe arthritis making it difficulty for her to walk. The has obstructive sleep apnea and asthma complicating her mobility. The knee pain has been persistent, and the patient has previously consulted orthopedics, who provided a cramp that was ineffective. The patient was advised to contact orthopedics for further evaluation, possibly considering injections. Neck pain has been an ongoing issue, and the patient was supposed to receive four therapy sessions but only attended one due to scheduling conflicts and an emergency. A new referral for therapy was discussed to address this issue. The patient has sleep apnea and is awaiting a new CPAP machine study to ensure the correct settings are applied. The importance of having the correct settings was emphasized to avoid ineffective treatment. Hypertension management was discussed, with the patient's blood pressure consistently around 130/70 mmHg. Gastroesophageal reflux disease is managed with omeprazole, and the patient requested a refill. Hyperlipidemia is managed with fenofibrate, and the patient confirmed the medication was refilled. Preventative care measures include a mammogram for breast cancer screening and a colonoscopy for colon cancer screening. The patient's mental health is stable, though she experiences emotional challenges related to family separation between [place] and her current location. [facility] Medical History Rhinosinusitis Nocturnal hypoxemia Sleep apnea Left knee pain Back pain History of torn meniscus of left knee Breast cancer screening Routine gynecological examination Encounter for colorectal cancer screening Annual physical exam GERD (gastroesophageal reflux disease) IBS (irritable bowel syndrome) Asthma Degenerative disc disease, cervical Surgical History History of esophagogastroduodenoscopy (EGD) H/O colonoscopy Hx of cholecystectomy Hx of section Family History Father Congestive heart failure COPD (chronic obstructive pulmonary disease) Mother Diabetes Mental health problem Intestinal obstruction Daughter Ovarian cancer Daughter No problems noted. Son No problems noted. Son No problems noted. Son No problems noted. Social History Household Members: Family Housing: House Alcohol intake: never Patient Tobacco Use Status: Never used Tobacco e-Cigarette/Vaping Use: Never Used Second Hand Smoke Exposure: No service: No Current occupational status: disabled Cognitive needs: Yes (Walker) Hearing needs: No Vision needs: Yes (Glasses) Questionnaire Thrive Questionnaire Date Thrive assessed: 05/16/24 I am a: Patient What is your living situation today?: I have a steady place to live Within the past 12 months, did the food you bought not last and you didn't have the money to get more?: Never true Within the past 12 months, did you worry whether your food would run out before you got money to buy more?: Sometimes True Do you have trouble paying for medicines?: No Do you have trouble getting transportation to medical appointments?: Yes Do you have trouble paying your heating and electricity bill?: Yes Do you have trouble taking care of your child, family member or friend?: No Do you have trouble with day-to-day activities such as bathing, preparing meals, shopping, managing finances, etc.?: Yes Are you currently unemployed and looking for a job?: No Are you interested in more education?: No Currently or been in a relationship where the following occur: No concerns reported THRIVE Score: 3 AUDIT C Alcohol Use Questionnaire (AUDIT-C) 3. How often do you have six or more drinks on one occasion?: Never Total Score: 0 OLGA-7 AMB Questionnaire OLGA-7 Date OLGA - 7 assessed: 06/27/24 Source: Developed by Drs. Otf Adhikari, Jasmina Matias, Juliano Coyne and colleagues, with an educational tyesha from [employer]. Review of Systems Const Denies headache(s) Eyes Denies loss of vision ENT Denies vertigo, Denies dizziness, Denies headache(s), Reports nasal congestion (On and off) and Denies sore throat Card Denies chest pain, Reports edema, Denies leg edema and Denies lightheadedness Resp Denies cough, Denies hemoptysis and Denies wheezing GI Denies abdominal pain, Denies melena, Denies constipation, Reports heartburn (If forgets omeprazole), Denies diarrhea and Denies vomiting Denies urinary frequency, Denies dysuria and Denies urinary urgency Musc Reports arthralgias (Left knee, right ankle), Reports joint swelling (Right ankle), Denies numbness and Denies tingling Neuro Denies Abnormal speech present, Denies behavioral changes, Denies vertigo, Denies dizziness, Denies headache(s), Denies loss of vision, Denies memory loss, Denies numbness and Denies tingling Psych Reports anxiety (Managed on treatment), Denies behavioral changes, Reports depression (Controlled on treatment), Denies memory loss and Denies panic attacks Tony/Lymph Denies easy bleeding and Denies easy bruising Aller/Immun Denies wheezing Physical exam (Primary Care) Tobacco/Smoking Status: Tobacco use Status Tobacco use date assessed 06/27/24 09/27/24 08:38 Patient Tobacco Use Status Never used Tobacco 09/27/24 08:38 e-Cigarette/Vaping Use Never Used 09/27/24 08:38 Thrive Assessment: Date of Thrive Assessment Date Thrive assessed 05/16/24 09/27/24 08:38 Currently or been in a relationship where the following occur: No concerns reported Const General: healthy appearing, no acute distress, alert and awake Nutritional Appearance: well nourished Orientation/consciousness: oriented to person, oriented to place and oriented to time HENMT Ears: TM's normal bilaterally General nose exam: Normal nasal mucous membranes and turbinates present Eyes Conjunctivae: conjunctivae normal Sclerae: sclerae normal Pupils: Equal, round and reactive pupils present Neck Neck: Yes no lymphadenopathy and Yes no JVD Thyroid: Thyroid normal Carotids: no bruits Resp Effort & Inspection: normal respiratory effort and not tachypneic Auscultation: no crackles, no rales, no rhonchi and no wheezes Cardio Rate: regular rate Rhythm: regular rhythm Heart sounds: no murmurs and normal S1 and S2 GI Inspection: Yes Abdominal panniculus present Palpation (GI): Soft to palpation, nontender, no hepatomegaly and no splenomegaly Auscultation: normal bowel sounds Skin General skin exam: no rashes or lesions noted and dry skin Neuro General: oriented to person, oriented to place and oriented to time Cranial nerves: Yes Equal, round and reactive pupils present Speech: No Abnormal speech present Gait exam (Neuro): Normal gait present Motor exam (neuro): no tremor noted Extrem Right upper extremity: full ROM Left upper extremity: full ROM Right lower extremity: full ROM; no edema Left lower extremity: full ROM; no edema Psych Mental Status: mental status grossly normal Speech and movement: Normal speech and movement present Affect: normal affect Attitude: cooperative Thought process: Normal thought process present Results Reviewed Results Reviewed: Laboratory Tests 07/19/24 10:03 WBC 11.0 H RBC 5.08 Hgb 15.3 Hct 47.5 H MCV 93.5 MCH 30.1 MCHC 32.2 RDW 12.3 Plt Count 192 Sodium 139 Potassium 4.6 Chloride 102 Carbon Dioxide 28 Anion Gap 14 BUN 14 Creatinine 0.77 Estim Creat Clear Calc Not Reportable Estimated GFR > 60 Fasting Glucose 93 Estimat Average Glucose 111 Hemoglobin A1c % 5.5 Calcium 9.4 Total Bilirubin 0.4 AST 31 ALT 27 Alkaline Phosphatase 42 Total Protein 7.0 Albumin 4.3 Triglycerides 131 Cholesterol 138 LDL Cholesterol, Calc 68 HDL Cholesterol 44 25-OH Vitamin D Total 22.3 L TSH 1.55 Coding Level of Care Code Est Pt Level 4 (70720) Diagnoses Hypertension, unspecified type I10 Hypertension type: unspecified High cholesterol E78.00 Morbid obesity with BMI of 50.0-59.9, adult E66.01; Z68.43 Gastroesophageal reflux disease, unspecified whether esophagitis present K21.9 Esophagitis presence: esophagitis presence not specified Asthma, unspecified asthma severity, unspecified whether complicated, unspecified whether persistent J45.909 Asthma severity: unspecified severity Asthma persistence: unspecified Asthma complication type: unspecified Sleep apnea, unspecified type G47.30 Sleep apnea type: unspecified type Left knee pain, unspecified chronicity M25.562 Chronicity: unspecified Degenerative disc disease, cervical M50.30 Chronic bilateral low back pain without sciatica M54.50; G89.29 Chronicity: chronic Back pain laterality: bilateral Sciatica presence: without sciatica Upper back pain M54.9 Major depressive disorder, remission status unspecified, unspecified whether recurrent F32.9 Major depression recurrence: unspecified whether recurrent Active/Remission status: remission status unspecified Anxiety F41.9 Right ankle pain, unspecified chronicity M25.571 Chronicity: unspecified Edema of right ankle M25.471 Time Spent (min) 41 Assessment & Plan Assessment & Plan (1) HTN (hypertension): Code(s): I10 - Essential (primary) hypertension Category: Medical Qualifiers: Hypertension type: unspecified Qualified Code(s): I10 - Essential (primary) hypertension Plan: Reinforced low-salt diet Continue atenolol 25 mg daily (2) High cholesterol: Code(s): E78.00 - Pure hypercholesterolemia, unspecified Category: Medical Plan: Reinforced low-cholesterol diet and activity as tolerated Continue fenofibrate 145 mg daily Lipid panel ordered to further evaluate (3) Morbid obesity with BMI of 50.0-59.9, adult: Comment: SHE HAS HISTORY OF MORBID OBESITY DURING THE PAST 5 YEARS OR MORE. NOT ABLE TO DO MUCH WALKING OR EXERCISE. DOES NOT HAVE MUCH CONTROL ON DIET. Code(s): E66.01 - Morbid (severe) obesity due to excess calories; Z68.43 - Body mass index [BMI] 50.0-59.9, adult Category: Medical Plan: The patient reports that she was supposed to have bariatric surgery and was scheduled 3 separate times. Reports that life changes kept happening and she was not able to proceed. Reports that she is not sure if she is still a candidate but would like to look into this as an option. She was referred to Medical weight management, however, the patient is not sure if she would like to go through surgery at this time. The patient has severe arthritis in her left knee, and is seeing ortho. She is also having pain and swelling in the right ankle, a x-ray was ordered to further evaluated. Arthritis is high on the probability list. The patient also has severe obstructive sleep apnea, along with asthma, so her mobility is impaired. Will try the patient on zepbound with the hopes that her insurance will cover this given all her comorbidities. (4) GERD (gastroesophageal reflux disease): Code(s): K21.9 - Gastro-esophageal reflux disease without esophagitis Category: Medical Qualifiers: Esophagitis presence: esophagitis presence not specified Qualified Code(s): K21.9 - Gastro-esophageal reflux disease without esophagitis Plan: Patient reports that her last EGD was about 20 years ago in [place]. Reports nausea and vomiting if forgets to take omeprazole 40 mg. Reports that symptoms are stable once she takes the medication. Continue omeprazole 40 mg daily. Reinforced dietary restrictions. The patient was referred to GI for follow up EGD (5) Asthma: Comment: SHE HAS HISTORY OF MILD INTERMITTENT WHEEZES, SUGGESTING MILD INTERMITTENT BRONCHIAL ASTHMA Code(s): J45.909 - Unspecified asthma, uncomplicated Category: Medical Qualifiers: Asthma severity: unspecified severity Asthma persistence: unspecified Asthma complication type: unspecified Qualified Code(s): J45.909 - Unspecified asthma, uncomplicated Plan: Continue montelukast 10 mg at HS and albuterol rescue inhaler as needed (6) Sleep apnea: Code(s): G47.30 - Sleep apnea, unspecified Category: Medical Qualifiers: Sleep apnea type: unspecified type Qualified Code(s): G47.30 - Sleep apnea, unspecified Plan: Patient has a history of sleep apnea. She moved from [place] reports that she does not have a CPAP machine. Patient had in home sleep study that showed severe obstructive sleep apnea, total sleep time AHI 76. The patient oxygen dropped below 88% for 96 minutes. The patient was referred to pulmonology who has scheduled the patient to have a titration study lab due to her severity. CPAP pending (7) Left knee pain: Code(s): M25.562 - Pain in left knee Category: Medical Qualifiers: Chronicity: unspecified Qualified Code(s): M25.562 - Pain in left knee Plan: Patient reports having a meniscus tears about 5 years ago that did not get repaired. Reports that she is still having pain and is unable to go up stairs. knee xray on 06/08/24 showed degenerative arthritic changes. The patient was referred to Orthopedics. She has sought him on 09/21/2024 and was started on diclofenac sodium 1% 4 g topical q.i.d.. There is plans for the patient to contact orthopedics if pain continues for possibly steroid injections. Continue gabapentin 100 mg daily and 300 mg at bedtime (8) Degenerative disc disease, cervical: Code(s): M50.30 - Other cervical disc degeneration, unspecified cervical region Category: Medical Plan: Cervical x-ray on 06/08/2024 showed: Mild degenerative disc changes C6-7 and C7- T1 disc levels The patient was referred to PT, but was only able to complete 1 session. We will send the patient back to PT to complete the recommended sessions (9) Low back pain: Code(s): M54.50 - Low back pain, unspecified Category: Medical Qualifiers: Chronicity: chronic Back pain laterality: bilateral Sciatica presence: without sciatica Qualified Code(s): M54.50 - Low back pain, unspecified; G89.29 - Other chronic pain Plan: Mild scoliosis. Unremarkable imaging, continue conservative treatments (10) Upper back pain: Code(s): M54.9 - Dorsalgia, unspecified Category: Medical Plan: Thoracic x-ray done on 06/08/2024 showed unremarkable imaging (11) Major depression: Code(s): F32.9 - Major depressive disorder, single episode, unspecified Category: Medical Qualifiers: Major depression recurrence: unspecified whether recurrent Active/Remission status: remission status unspecified Qualified Code(s): F32.9 - Major depressive disorder, single episode, unspecified Plan: Continue amitriptyline 75 mg at bedtime, amitriptyline 100 mg at bedtime, area aripiprazole 20 mg daily, venlafaxine ER 75 mg daily, venlafaxine ER 150 mg daily Follow up with Psychiatry as scheduled (12) Anxiety: Code(s): F41.9 - Anxiety disorder, unspecified Category: Medical Plan: Continue venlafaxine ER 75 mg daily, venlafaxine 150 mg daily Follow up with Psychiatry as scheduled (13) Right ankle pain: Code(s): M25.571 - Pain in right ankle and joints of right foot Category: Medical Qualifiers: Chronicity: unspecified Qualified Code(s): M25.571 - Pain in right ankle and joints of right foot Plan: Increase being to left ankle associated with swelling. Left ankle x-ray ordered to further evaluate (14) Edema of right ankle: Code(s): M25.471 - Effusion, right ankle Category: Medical Plan: Same as above Orders: Orders Comprehensive [place]. Panel Fast Today E66.01 - Morbid (severe) obesity due to excess calories, E78.00 - Pure hypercholesterolemia, unspecified, G47.33 - Obstructive sleep apnea (adult) (pediatric), I10 - Essential (primary) hypertension, J45.909 - Unspecified asthma, uncomplicated, K21.9 - Gastro- esophageal reflux disease without esophagitis, Z68.43 - Body mass index [BMI] 50.0-59.9, adult Lipid Panel Today E66.01 - Morbid (severe) obesity due to excess calories, E78.00 - Pure hypercholesterolemia, unspecified, G47.33 - Obstructive sleep apnea (adult) (pediatric), I10 - Essential (primary) hypertension, J45.909 - Unspecified asthma, uncomplicated, K21.9 - Gastro-esophageal reflux disease without esophagitis, Z68.43 - Body mass index [BMI] 50.0-59.9, adult TSH reflex Free T4 Today E66.01 - Morbid (severe) obesity due to excess calories, E78.00 - Pure hypercholesterolemia, unspecified, G47.33 - Obstructive sleep apnea (adult) (pediatric), I10 - Essential (primary) hypertension, J45.909 - Unspecified asthma, uncomplicated, K21.9 - Gastro-esophageal reflux disease without esophagitis, Z68.43 - Body mass index [BMI] 50.0-59.9, adult PT Evaluation and Treatment Today M54.2 - Cervicalgia Complete Blood Count Auto Diff Today E55.9 - Vitamin D deficiency, unspecified, E66.01 - Morbid (severe) obesity due to excess calories, E78.00 - Pure hypercholesterolemia, unspecified, G47.33 - Obstructive sleep apnea (adult) (pediatric), I10 - Essential (primary) hypertension, J45.909 - Unspecified asth ma, uncomplicated, K21.9 - Gastro-esophageal reflux disease without esophagitis, Z68.43 - Body mass index [BMI] 50.0-59.9, adult UA CC w/rflx Micro + Cult Today E66.01 - Morbid (severe) obesity due to excess calories, E78.00 - Pure hypercholesterolemia, unspecified, G47.33 - Obstructive sleep apnea (adult) (pediatric), I10 - Essential (primary) hypertension, J45.909 - Unspecified asthma, uncomplicated, K21.9 - Gastro-esophageal reflux disease without esophagitis, Z68.43 - Body mass index [BMI] 50.0-59.9, adult Vitamin D 25-OH Total Today E66.01 - Morbid (severe) obesity due to excess calories, E78.00 - Pure hypercholesterolemia, unspecified, G47.33 - Obstructive sleep apnea (adult) (pediatric), I10 - Essential (primary) hypertension, J45.909 - Unspecified asthma, uncomplicated, K21.9 - Gastro-esophageal reflux disease without esophagitis, Z68.43 - Body mass index [BMI] 50.0-59.9, adult XR ankle RT min 3V Today M25.471 - Effusion, right ankle, M25.571 - Pain in right ankle and joints of right foot Medications: New acetaminophen ER (Tylenol 8 Hour) 1,300 mg (2 x 650 mg) PO Q12H 60 tabs 0RF tirzepatide (weight loss) (Zepbound) for 4 weeks 2.5 mg (0.5 mL) subcut QWEEK 2 mL 0RF Refilled atenolol 25 mg PO DAILY 30 tabs 3RF azelastine administer into each nostril 1 spray intranasal BID 30 mL 3RF montelukast 10 mg PO QPM 30 tabs 3RF omeprazole 40 mg PO DAILY 90 caps 3RF fenofibrate nanocrystallized 145 mg PO DAILY 30 tabs 3RF
[2024-09-27 09:06] VITALS: BP 130/70; PULSE 64; TEMP 35.9; O2SAT 95; BMI 54.1
== END 2024-09-27 09:40 | disposition home or self-care (01) ==
LOC: HO.HMCH 08:26
DX: I10 Essential (primary) hypertension (principal); E78.00 Pure hypercholesterolemia, unspecified; E66.01 Morbid (severe) obesity due to excess calories; Z68.43 Body mass index [BMI] 50.0-59.9, adult; K21.9 Gastro-esophageal reflux disease without esophagitis; J45.909 Unspecified asthma, uncomplicated; G47.30 Sleep apnea, unspecified; M25.562 Pain in left knee; M50.30 Other cervical disc degeneration, unspecified cervical region; M54.50 Low back pain, unspecified; G89.29 Other chronic pain; M54.9 Dorsalgia, unspecified; F32.9 Major depressive disorder, single episode, unspecified; F41.9 Anxiety disorder, unspecified; M25.571 Pain in right ankle and joints of right foot; M25.471 Effusion, right ankle

== ENCOUNTER → 2024-09-27 08:25 | Outpatient (BNVA) | payer MEDICARE, SELFPAY | DX: I10 Essential (primary) hypertension (principal); E78.00 Pure hypercholesterolemia, unspecified; E66.01 Morbid (severe) obesity due to excess calories; Z68.43 Body mass index [BMI] 50.0-59.9, adult; K21.9 Gastro-esophageal reflux disease without esophagitis; J45.909 Unspecified asthma, uncomplicated; G47.30 Sleep apnea, unspecified; M25.562 Pain in left knee; M50.30 Other cervical disc degeneration, unspecified cervical region; M54.50 Low back pain, unspecified; G89.29 Other chronic pain; M54.9 Dorsalgia, unspecified; F32.9 Major depressive disorder, single episode, unspecified; F41.9 Anxiety disorder, unspecified; M25.571 Pain in right ankle and joints of right foot; M25.471 Effusion, right ankle; Z71.3 Dietary counseling and surveillance | CPT/HCPCS: 99212 ==

== ENCOUNTER → 2024-10-04 19:30 | Outpatient (REF) | payer MEDICARE, SELFPAY | LOC: HO.SL 19:30 | PROVIDERS: Visit Provider Internal Medicine | DX: G47.33 Obstructive sleep apnea (adult) (pediatric) (principal); G47.34 Idiopathic sleep related nonobstructive alveolar hypoventilation; E66.01 Morbid (severe) obesity due to excess calories; Z68.43 Body mass index [BMI] 50.0-59.9, adult | CPT/HCPCS: 95811 ==

== ENCOUNTER → 2024-10-05 00:52 | Outpatient (BNV) | payer MEDICARE, SELFPAY | PROVIDERS: Visit Provider Internal Medicine | DX: G47.33 Obstructive sleep apnea (adult) (pediatric) (principal) | CPT/HCPCS: 95811 ==

== ENCOUNTER 2024-10-16 12:06 | Outpatient (AMB) | payer MEDICARE, MEDICAID, SELFPAY ==
--- NOTE | 2024-10-16 13:02 | MHC.OFFVIS ---
Vital Signs 10/16/24 13:27 Height 5 ft 2 in Weight 297 lb BMI 54.3 BP 122/64 Blood Pressure Location Lt radial Position Sitting Pulse 73 Pulse Source Pulse Oximeter Pulse Oximetry (%) 97 Oxygen Delivery Method Room Air Intake Visit Reasons: Obstructive sleep apnea Intake Note: Patient is here to follow up on Sleep Study results and management . Allergies aspirin Allergy (Severe, Verified 10/16/24 13:51) Anaphylaxis Quinolones Allergy (Severe, Verified 10/16/24 13:51) Anaphylaxis Sulfa (Sulfonamide Antibiotics) Allergy (Severe, Verified 10/16/24 13:51) Anaphylaxis Medication List - Last Reconciled 10/16/24 by Mariel Chopra MD acetaminophen ER (Tylenol 8 Hour) 1,300 mg (2 x 650 mg) PO Q12H albuterol sulfate 90 mcg/actuation 2 puffs inhalation Q4-6H PRN amitriptyline mg PO aripiprazole 20 mg PO DAILY atenolol 25 mg PO DAILY azelastine 1 spray intranasal BID bisacodyl (Dulcolax (bisacodyl)) 10 mg (2 x 5 mg) PO BEDTIME 2 days buspirone 10 mg PO QPM cholecalciferol (vitamin D3) 25 mcg PO DAILY diclofenac sodium 1% 4 grams topical QID 30 days epinephrine (EpiPen 2-Adolfo) 0.3 mg (0.3 mL) IM Q10M PRN famotidine (Pepcid) 20 mg PO BEDTIME fenofibrate nanocrystallized 145 mg PO DAILY fluticasone propionate 50 mcg/actuation 1 spray intranasal BID gabapentin 100 mg PO DAILY gabapentin 300 mg PO BEDTIME montelukast 10 mg PO QPM omeprazole 40 mg PO DAILY peg 3350-electrolytes 236-22.74-6.74 -5.86 gram (Golytely) 240 mL PO Q10M 1 day tirzepatide (weight loss) (Zepbound) 2.5 mg (0.5 mL) subcut QWEEK venlafaxine ER 75 mg PO DAILY venlafaxine ER 150 mg PO DAILY Do you need a note to return to daycare/school/sports/work: No HPI HPI Obstructive sleep apnea: Details: THIS 53 YEARS OLD FEMALE WITH MORBID OBESITY AND HISTORY OF OBSTRUCTIVE SLEEP APNEA IS HERE FOR FOLLOW-UP AFTER THE CPAP TITRATION STUDY IN THE SLEEP LAB. SHE HAS HISTORY OF BEING OVERWEIGHT THROUGHOUT HER ADULT LIFE, BUT IN THE LAST 5 YEARS HAS PUT ON WEIGHT MORE AGGRESSIVELY. ALSO HAS HISTORY OF DIFFICULTY IN SLEEPING AT NIGHT, FREQUENT AWAKENINGS WITH GASPING LIKE FEELING, VERY LOUD SNORING AND EXCESSIVE DAYTIME SLEEPINESS . SHE TELLS ME THAT SHE HAD A SLEEP STUDY IN [place] ABOUT 1 AND HALF YEAR AGO AND WAS STARTED ON CPAP, HAVING DIFFICULTY IN USING THE CPAP. WHEN SHE CAME TO [facility] , SHE DID NOT BRING HER CPAP MACHINE AND IT GOT LOST. OVER HERE SHE WAS HAVING INCREASING AMOUNT OF DIFFICULTY IN SLEEPING WITH EXCESSIVE DAYTIME SLEEPINESS. SHE HAD HOME-BASED SLEEP STUDY ON 07/25 2024. IT SHOWED VERY VERY SEVERE OBSTRUCTIVE SLEEP APNEA WITH TOTAL SLEEP TIME AHI 76, AND NOCTURNAL HYPOXEMIA WITH O2 SAT BELOW 88% FOR 96 MINUTES SHE WAS REFERRED FOR IN-LAB POLYSOMNOGRAM STUDY WITH CPAP TITRATION WHICH WAS ACCOMPLISHED ON 10/04/2024. SHE COMES IN TODAY TO DISCUSS THE RESULTS AND IS ANXIOUSLY AWAITING TO GET ON THE CPAP/BIPAP TREATMENT. [facility] Medical History Rhinosinusitis Nocturnal hypoxemia Sleep apnea Left knee pain Back pain History of torn meniscus of left knee Breast cancer screening Routine gynecological examination Encounter for colorectal cancer screening Annual physical exam GERD (gastroesophageal reflux disease) IBS (irritable bowel syndrome) Asthma Degenerative disc disease, cervical Surgical History History of esophagogastroduodenoscopy (EGD) H/O colonoscopy Hx of cholecystectomy Hx of section Family History Father Congestive heart failure COPD (chronic obstructive pulmonary disease) Mother Diabetes Mental health problem Intestinal obstruction Daughter Ovarian cancer Daughter No problems noted. Son No problems noted. Son No problems noted. Son No problems noted. Social History Household Members: Family Housing: House Alcohol intake: never Patient Tobacco Use Status: Never used Tobacco e-Cigarette/Vaping Use: Never Used Second Hand Smoke Exposure: No service: No Current occupational status: disabled Cognitive needs: Yes (Walker) Hearing needs: No Vision needs: Yes (Glasses) Review of Systems Const All systems reviewed & are unremarkable except as noted in HPI and below Reports snoring (LOUD) Eyes Reports no additional complaints ENT Reports no additional complaints Card Denies chest pain, Denies irregular heart rhythm and Reports leg edema Resp Denies cough, Reports snoring (LOUD) and Denies wheezing GI Reports heartburn (FREQUENT HEARTBURN AFTER EATING) Reports no additional complaints Musc Reports back pain and Reports muscle weakness Skin/Breast Reports system reviewed and no additional complaints, except as documented Neuro Reports no additional complaints Psych Reports anxiety and Reports mood swings Endo Reports no additional complaints Tony/Lymph Reports no additional complaints Aller/Immun Reports no additional complaints and Denies wheezing Physical Exam Vital Signs: Last Vital Signs Pulse 73 10/16/24 13:27 BP 122/64 10/16/24 13:27 Pulse Ox 97 10/16/24 13:27 Oxygen Delivery Method Room Air 10/16/24 13:27 BMI result Body Mass Index 54.3 VERY VERY OBESE WITH A ROUND FACE AND SHORT NECK Const General: comfortable, no acute distress, alert and awake Orientation/consciousness: patient oriented x3 HEENT Head: Yes normal to inspection General nose exam: No nasal polyps present and No nasal discharge present Face and sinus: Yes sinuses nontender Mouth: oropharynx abnormals (NARROW AND CROWDED OROPHARYNX, MALLAMPATI CLASS 4) Throat: Yes posterior oropharynx normal Eyes General: appearance normal, both eyes and all related structures Neck Neck: Yes normal visual inspection, Yes no lymphadenopathy, Yes trachea midline, Yes no JVD and Yes other (NECK SIZE 16 AND HALF INCH ) Thyroid: Thyroid normal Chest Chest palpation & inspection: normal inspection of the chest, normal palpation of entire chest wall and no tenderness Resp Effort & Inspection: normal respiratory effort Auscultation: clear to auscultation bilaterally Cardio Palpation: PMI not normal (NOT PALPABLE) Rate: regular rate Rhythm: regular rhythm Heart sounds: no gallops and no murmurs Peripheral pulses: Peripheral pulses 2+ throughout GI Palpation (GI): Soft to palpation, nontender, No hepatosplenomegaly present, no masses and Other GI palpation findings present (ABDOMEN IS GROSSLY OBESE AND PROTUBERANT) Auscultation: normal bowel sounds Back/Spine/Pelvis Thoracic/Lumbar Spine: thoracic and lumbar spine normal to inspection and thoraco-lumbar ROM limited Skin General skin exam: no rashes or lesions noted Neuro General: patient oriented x3 and no focal motor deficits Cranial nerves: Yes CN's II-XII intact bilaterally Extrem General: Yes normal to inspection, Yes no clubbing, cyanosis or edema, Yes no calf tenderness and Yes other (BOTH LEGS ARE VERY BULKY BUT NO PITTING EDEMA) Psych Appearance: grossly normal and well kempt Speech and movement: Normal speech and movement present Results Reviewed Results Reviewed: THE CPAP TITRATION STUDY SHOWED THAT SHE REQUIRED BIPAP WITH PRESSURE SETTING OF 20/16 CM. SHE HAD EXCELLENT RESULTS WITH THE REM REBOUND. AND SHE IS TELLING ME THAT SHE NEVER HAD GOOD SLEEP ON THAT NIGHT. Assessment & Plan Assessment & Plan (1) Morbid obesity with BMI of 50.0-59.9, adult: Comment: SHE HAS HISTORY OF MORBID OBESITY DURING THE PAST 5-6 YEARS OR MORE. NOT ABLE TO DO MUCH WALKING OR EXERCISE. DOES NOT HAVE MUCH CONTROL ON DIET. Code(s): E66.01 - Morbid (severe) obesity due to excess calories; Z68.43 - Body mass index [BMI] 50.0-59.9, adult Category: Medical Plan: POTENTIAL FOR HER TO LOSE WEIGHT IS VERY LOW. HOWEVER HOPING THAT AFTER STARTING TO USE THE BIPAP AND GETTING MORE ENERGY SHE MAY BE ABLE TO LOSE WEIGHT SLOWLY. SHE DOES NOT WANT TO JOIN A WEIGHT MANAGEMENT PROGRAM AT THIS TIME. (2) MAHOGANY (obstructive sleep apnea): Comment: SHE DOES HAVE VERY VERY SEVERE OBSTRUCTIVE SLEEP APNEA WITH NOCTURNAL HYPOXEMIA HAD VERY SUCCESSFUL CPAP TITRATION AND REQUIRED BIPAP 20/16 CM USING FULLFACE MASK . AT THIS PRESSURE SETTING SHE DID NOT REQUIRE THE OXYGEN. Code(s): G47.33 - Obstructive sleep apnea (adult) (pediatric) Category: Medical Plan: I HAVE EXPLAINED THE FINDINGS TO HER IN DETAIL, GIVEN HER. A COPY TO READ AT HOME AND WILL GO AHEAD AND ORDER CPAP WITH BILEVEL PRESSURE SETTING, 20/16 CM USING A FULLFACE MASK. ALSO INSTRUCTED TO USE HUMIDIFICATION. SHE IS LOOKING FORWARD TO USING THE BIPAP AND SLEEPING GOOD. (3) Asthma: Comment: SHE HAS HISTORY OF MILD INTERMITTENT WHEEZES, SUGGESTING MILD INTERMITTENT BRONCHIAL ASTHMA Code(s): J45.909 - Unspecified asthma, uncomplicated Category: Medical Qualifiers: Asthma severity: unspecified severity Asthma persistence: unspecified Asthma complication type: unspecified Qualified Code(s): J45.909 - Unspecified asthma, uncomplicated Plan: OK TO USE ALBUTEROL HFA 2 PUFFS Q 4-6 HOURS BUT ONLY P.R.N. Coding Level of Care Code Est Pt Level 3 (84954) Diagnoses Morbid obesity with BMI of 50.0-59.9, adult E66.01; Z68.43 MAHOGANY (obstructive sleep apnea) G47.33 Asthma, unspecified asthma severity, unspecified whether complicated, unspecified whether persistent J45.909 Asthma severity: unspecified severity Asthma persistence: unspecified Asthma complication type: unspecified
[2024-10-16 13:27] VITALS: BP 122/64; PULSE 73; O2SAT 97; BMI 54.3
== END 2024-10-16 13:48 | disposition home or self-care (01) ==
LOC: HO.HPS 12:07
PROVIDERS: Visit Provider Internal Medicine
DX: E66.01 Morbid (severe) obesity due to excess calories (principal); Z68.43 Body mass index [BMI] 50.0-59.9, adult; G47.33 Obstructive sleep apnea (adult) (pediatric); J45.909 Unspecified asthma, uncomplicated
CPT/HCPCS: 99213

== ENCOUNTER → 2024-10-16 12:06 | Outpatient (BNVA) | payer MEDICARE, MEDICAID, SELFPAY | PROVIDERS: Visit Provider Internal Medicine | DX: G47.33 Obstructive sleep apnea (adult) (pediatric) (principal); E66.01 Morbid (severe) obesity due to excess calories; Z68.43 Body mass index [BMI] 50.0-59.9, adult | CPT/HCPCS: 99212 ==

== ENCOUNTER 2024-10-18 09:02 | Outpatient (REF) | payer MEDICARE, MEDICAID, SELFPAY ==
--- NOTE | ~2024-10-18 | XR_ITS ---
EXAMINATION: XR ANKLE, right CLINICAL INFORMATION: M25.571 - Pain in right ankle and joints of right foot COMPARISON: None available. TECHNIQUE: AP, lateral, and mortise views lower extremity joint, ankle. FINDINGS: Ankle mortise is congruent. There is no widening of the syndesmosis. Talar dome is intact. There are small calcaneal enthesophytes. Osteophytes are present along the tibial plafond and dorsal midfoot. Additionally, there is convexity of the dorsal talar neck. XR/XR ankle RT min 3V IMPRESSION: Mild degenerative changes are present consistent with osteoarthritis. Possible anterior ankle impingement: There are osteophytes involving the tibial plafond and convexity of the dorsal talar neck. Correlate for signs symptoms of anterior ankle impingement. Electronically signed by: Shamir Vaughn MD 10/18/2024 10:09 AM EDT
[2024-10-18 09:50] LABS: Hematocrit 41.8 % (37.0-47.0); Hemoglobin 13.4 g/dl (12.0-16.0); Imm Gran Abs Auto 0.05 X10*3/uL (0.00-0.03); Imm Gran Pct Auto 0.9 % (0.0-0.4); Lymphocytes Absolute Auto 2.1 X10*3/uL (1.2-4.9); MANUAL DIFF FLAG SCAN; Mean Corpuscular HGB Conc 32.1 g/dl (31.0-35.0); Mean Corpuscular Hemoglobin 30.0 pg (27.0-33.0); Mean Corpuscular Volume 93.7 fL (80.0-98.0); NRBC Abs Auto 0.000 X10*3/uL (0.0-0.012); NRBC Pct Auto 0.0 /100WBC (0.0-0.2); PLT CLUMP 1; Red Blood Count 4.46 X10*6/uL (4.20-5.50); SCAN SMEAR FLAG 1
[2024-10-18 10:18] LABS: Platelet Count 197 X10*3/uL (160-400); White Blood Count 5.7 X10*3/uL (4.8-10.8)
[2024-10-18 12:58] LABS: Appearance Urine Clear; Glucose Urine UA Negative (Negative); PH 5.5 (5.0-9.0); Specific Gravity - Urine 1.025 (1.005-1.025)
== END 2024-10-18 09:03 | disposition home or self-care (01) ==
LOC: HO.LAB 09:02
DX: Z00.00 Encounter for general adult medical examination without abnormal findings (principal); I10 Essential (primary) hypertension; K21.9 Gastro-esophageal reflux disease without esophagitis; J45.909 Unspecified asthma, uncomplicated; G47.30 Sleep apnea, unspecified; E78.00 Pure hypercholesterolemia, unspecified; G47.33 Obstructive sleep apnea (adult) (pediatric); E55.9 Vitamin D deficiency, unspecified; M25.571 Pain in right ankle and joints of right foot; M25.471 Effusion, right ankle; E66.01 Morbid (severe) obesity due to excess calories; Z68.43 Body mass index [BMI] 50.0-59.9, adult
CPT/HCPCS: 36415; 73610; 81003; 85025

== ENCOUNTER → 2024-10-18 09:51 | Outpatient (BNV) | payer MEDICARE, MEDICAID, SELFPAY | PROVIDERS: Visit Provider Radiology Diagnostic Radiology | DX: M19.071 Primary osteoarthritis, right ankle and foot (principal) | CPT/HCPCS: 73610 ==

== ENCOUNTER 2024-11-02 10:17 | Outpatient (AMB) | payer MEDICARE, SELFPAY ==
--- NOTE | 2024-11-02 10:25 | MHC.OFFVIS ---
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 Patient was referred by her PCP 09/27/24. Patient had X ray's in the past. At today's visit she states that since childhood she was diagnosed with scolioses. Patient states that her bilateral neck pain radiates into the right arm and her bicep. She states that the lower back pain radiates across but does not radiate down her legs. She added that she has not tried physical therapy or injections. Patient reports that her PCP has her currently attending physical therapy for her left knee at [facility] in [place]. She reports no falls or injury's. Allergies aspirin Allergy (Severe, Verified 11/02/24 10:32) Anaphylaxis Quinolones Allergy (Severe, Verified 11/02/24 10:32) Anaphylaxis Sulfa (Sulfonamide Antibiotics) Allergy (Severe, Verified 11/02/24 10:32) Anaphylaxis Medication List - Last Reconciled 11/02/24 by Katty Mullins MD acetaminophen ER (Tylenol 8 Hour) 1,300 mg (2 x 650 mg) PO Q12H albuterol sulfate 90 mcg/actuation 2 puffs inhalation Q4-6H PRN amitriptyline mg PO aripiprazole 20 mg PO DAILY atenolol 25 mg PO DAILY azelastine 1 spray intranasal BID bisacodyl (Dulcolax (bisacodyl)) 10 mg (2 x 5 mg) PO BEDTIME 2 days buspirone 10 mg PO QPM cholecalciferol (vitamin D3) 25 mcg PO DAILY diclofenac sodium 1% 4 grams topical QID 30 days epinephrine (EpiPen 2-Adolfo) 0.3 mg (0.3 mL) IM Q10M PRN famotidine (Pepcid) 20 mg PO BEDTIME fenofibrate nanocrystallized 145 mg PO DAILY fluticasone propionate 50 mcg/actuation 1 spray intranasal BID gabapentin 300 mg PO BEDTIME gabapentin 100 mg PO DAILY montelukast 10 mg PO QPM omeprazole 40 mg PO DAILY peg 3350-electrolytes 236-22.74-6.74 -5.86 gram (Golytely) 240 mL PO Q10M 1 day tirzepatide (weight loss) (Zepbound) 2.5 mg (0.5 mL) subcut QWEEK venlafaxine ER 75 mg PO DAILY venlafaxine ER 150 mg PO DAILY HPI Comments Details: She qualifies that neck is worse than back pain. Recent xrays showed cervical spondylosis while lumbar was essentially unremarkable. History of scoliosis. Neck pain, going to right arm with hand numbness. No MRI. No PT. No injections. No EMG. No history of CTS. Was told during childhoot to have rheumatoid arthrits but not treated due to allergy to aspirin. [facility] Medical History Rhinosinusitis Nocturnal hypoxemia Sleep apnea Left knee pain Back pain History of torn meniscus of left knee Breast cancer screening Routine gynecological examination Encounter for colorectal cancer screening Annual physical exam GERD (gastroesophageal reflux disease) IBS (irritable bowel syndrome) Asthma Degenerative disc disease, cervical Surgical History History of esophagogastroduodenoscopy (EGD) H/O colonoscopy Hx of cholecystectomy Hx of section Family History Father Congestive heart failure COPD (chronic obstructive pulmonary disease) Mother Diabetes Mental health problem Intestinal obstruction Daughter Ovarian cancer Daughter No problems noted. Son No problems noted. Son No problems noted. Son No problems noted. Social History Household Members: Family Housing: House Alcohol intake: never Patient Tobacco Use Status: Never used Tobacco e-Cigarette/Vaping Use: Never Used Second Hand Smoke Exposure: No service: No Current occupational status: disabled Cognitive needs: Yes (Walker) Hearing needs: No Vision needs: Yes (Glasses) Review of Systems Const All systems reviewed & are unremarkable except as noted in HPI and below Physical Exam Exam Exam: Constitutional: Patient appears to be in no acute distress, well nourished and well developed. Patient was appropriately conversant and oriented. Good historian. MSK: Inspection reveals appropriate head and neck positioning. No pain with palpation over the neck musculature. Cervical ROM was full. Spurling's sign negative. Bilateral shoulder, elbow and wrist ROM WNL. No ligamentous laxity or crepitance. No increased effusion. Noted sausage like swelling on all fingers. Bilateral. Strength is 5/5 in all muscle groups tested. No increased tone noted. Neurological: Neurologic examination of the upper and lower extremities was nonfocal with intact sensation, muscle stretch reflexes and without focal motor deficits . Page?s negative bilaterally. Babinski was down going bilaterally. Clonus was negative. Gait is non-antalgic without loss of balance. Vital Signs: BMI result Body Mass Index 53.6 Results Reviewed Results Reviewed: Ordering Physician: Ernesto Portillo Date of Service: 06/08/24 Procedure(s): XR cervical spine 3V Accession Number(s): [id number] cc: Ernesto Portillo~ EXAMINATION: XR CERVICAL SPINE CLINICAL INFORMATION: M50.30 - Other cervical disc degeneration, unspecified cervical region COMPARISON: None available. TECHNIQUE: 3 views of the cervical spine were obtained. FINDINGS: There is maintained cervical lordosis. The vertebral heights and alignment are normal. There is mild loss of C6-7 and C7-T1 disc height. Rest the disc heights are normal. The prevertebral and paravertebral soft tissues are normal. No aggressive lytic or sclerotic process seen. XR/XR cervical spine 3V IMPRESSION: Mild degenerative disc changes C6-7 and C7-T1 disc levels Electronically signed by: Byron Álvarez MD 06/08/2024 12:29 PM EDT RP Ordering Physician: Ernesto Portillo Date of Service: 06/08/24 Procedure(s): XR lumbar spine 2-3V Accession Number(s): [id number] cc: Ernesto Portillo~ EXAMINATION: XR LUMBOSACRAL SPINE CLINICAL INFORMATION: M50.30 - Other cervical disc degeneration, unspecified cervical region COMPARISON: None available. TECHNIQUE: Three views of the lumbosacral spine. FINDINGS: There is normal lumbar lordosis. The vertebral heights and alignment is normal. There is mild loss of L5-S1 disc height. There is mild dextroscoliosis. There is no acute fracture, dislocation, lytic or sclerotic process seen. SI joints are normal. XR/XR lumbar spine 2-3V IMPRESSION: Unremarkable lumbar spine exam. There is mild scoliosis. Electronically signed by: Byron Álvarez MD 06/08/2024 12:17 PM EDT RP I reviewed records from the following: [ ] Assessment & Plan Assessment & Plan (1) Cervical spondylosis: Code(s): M47.812 - Spondylosis without myelopathy or radiculopathy, cervical region Category: Medical (2) Cervical radiculitis: Code(s): M54.12 - Radiculopathy, cervical region Category: Medical (3) Finger swelling: Code(s): M79.89 - Other specified soft tissue disorders Category: Medical Plan Chronic neck and back pain periods possible cervical radiculitis, with cervical spondylosis seen on previous x-ray. Lumbar x-ray unremarkable. Noted very swollen fingers, and patient says she was diagnosed with rheumatoid arthritis when she was a child but never treated. We will send for hand x-rays today. We will check for PATRICIA and RF. Most likely, depending on results, we will refer to Rheumatology. For neck pain, referring to physical therapy. Work on upper trapezius as well. If not improved, may need cervical MRI. Assessment and plan discussed with patient, and patient was agreeable. All questions were answered thoroughly. Follow up 2 months. Katty Mullins MD, CHACHA Board Certified, [place] Board [employer] Medicine and Rehabilitation (ABPMR) Board Certified, [place] Board [employer] Electrodiagnostic Medicine (ABEM) Orders: Orders XR hand RT min 3V Today M47.812 - Spondylosis without myelopathy or radiculopathy, cervical region, M54.12 - Radiculopathy, cervical region, M79.643 - Pain in unspecified hand, M79.89 - Other specified soft tissue disorders Rheumatoid Factor Today M79.89 - Other specified soft tissue disorders XR hand LT min 3V Today M47.812 - Spondylosis without myelopathy or radiculopathy, cervical region, M54.12 - Radiculopathy, cervical region, M79.643 - Pain in unspecified hand, M79.89 - Other specified soft tissue disorders PT Evaluation and Treatment Today M47.812 - Spondylosis without myelopathy or radiculopathy, cervical region, M54.12 - Radiculopathy, cervical region, M79.89 - Other specified soft tissue disorders PATRICIA Reflex Titer and Pattern Today M79.89 - Other specified soft tissue disorders Referrals Rheumatology Referral M19.90 - Unspecified osteoarthritis, unspecified site Coding Level of Care Code New Pt Level 4 (10819) Complex EM visit Add On G2211 Diagnoses Cervical spondylosis M47.812 Cervical radiculitis M54.12 Finger swelling M79.89
[2024-11-02 10:32] VITALS: BMI 53.6
== END 2024-11-02 11:43 | disposition home or self-care (01) ==
LOC: HO.HOS 10:18
PROVIDERS: Visit Provider Physical Medicine & Rehabilitation
DX: M47.812 Spondylosis without myelopathy or radiculopathy, cervical region (principal); M54.12 Radiculopathy, cervical region; M79.89 Other specified soft tissue disorders
CPT/HCPCS: 99204; G2211

== ENCOUNTER 2024-11-02 10:17 | Outpatient (REF) | payer MEDICARE, MEDICAID, SELFPAY ==
--- NOTE | ~2024-11-02 | XR_ITS ---
EXAMINATION: XR HAND, RIGHT CLINICAL INFORMATION: M79.643 - Pain in unspecified hand COMPARISON: None available. TECHNIQUE: PA, lateral, and oblique views of the right hand. FINDINGS: Irregularity is noted with cystic change in the ulnar side of the fifth proximal phalanx head, likely chronic and degenerative, possibly posttraumatic. Radial inclination is mildly increased measuring 27 degrees sloping down toward the ulna. Carpal angle measures 127 degrees which is lower limits of normal. There is 4 mm ulnar minus variance. However there is a prominent ulnar styloid projecting to the carpus. XR/XR hand RT min 3V IMPRESSION: Borderline Madelung deformity. Mild degenerative changes of the ulnar side of the fifth proximal phalanx head could be posttraumatic in nature. Electronically signed by: Shamir Vaughn MD 11/02/2024 11:36 AM EDT
--- NOTE | ~2024-11-02 | XR_ITS ---
EXAMINATION: XR HAND, LEFT CLINICAL INFORMATION: M79.643 - Pain in unspecified hand COMPARISON: None available. TECHNIQUE: PA, lateral, and oblique views of the left hand. FINDINGS: Radial correlation is at the upper limits normal measuring 25 degrees. There is a 8 millimeters ulnar minus variance . Distal ulna sits low in the distal radioulnar joint without clear erosive changes in the DRUJ. However, there is possible degenerative cystic change in the radius. There is no sclerosis involving lunate. There is no definite. The dislocation or subluxation. XR/XR hand LT min 3V IMPRESSION: 8 mm ulnar minus variance. Possible ulnar impingement with suspected degenerative cystic change in the radius at the sigmoid notch. Electronically signed by: Shamir Vaughn MD 11/02/2024 11:42 AM EDT
== END 2024-11-02 10:18 | disposition home or self-care (01) ==
LOC: HO.HOSX 10:17
PROVIDERS: Visit Provider Physical Medicine & Rehabilitation
DX: M47.22 Other spondylosis with radiculopathy, cervical region (principal); M79.641 Pain in right hand; M79.89 Other specified soft tissue disorders; M19.90 Unspecified osteoarthritis, unspecified site
CPT/HCPCS: 73130; 99202

== ENCOUNTER → 2024-11-02 10:48 | Outpatient (BNV) | payer MEDICARE, SELFPAY | PROVIDERS: Visit Provider Radiology Diagnostic Radiology | DX: M19.041 Primary osteoarthritis, right hand (principal); M24.832 Other specific joint derangements of left wrist, not elsewhere classified | CPT/HCPCS: 73130 ==

== ENCOUNTER 2024-11-02 11:08 | Outpatient (REF) | payer MEDICARE, MEDICAID, SELFPAY ==
[2024-11-08 12:52] LABS: Anti Nuclear Antibody Pattern Nuclear, Speckled; Anti Nuclear Antibody Screen POSITIVE (NEGATIVE); Anti Nuclear Antibody Titer 1:80 titer
== END 2024-11-02 11:09 | disposition home or self-care (01) ==
LOC: HO.10HDL 11:08
PROVIDERS: Visit Provider Physical Medicine & Rehabilitation
DX: R60.0 Localized edema (principal)
CPT/HCPCS: 36415; 86038; 86039; 86431

== ENCOUNTER 2024-11-09 11:25 | Outpatient (REF) | payer MEDICARE, SELFPAY | END 2024-11-09 11:26 | disposition home or self-care (01) | LOC: HO.MAMMO 11:25 | DX: Z12.31 Encounter for screening mammogram for malignant neoplasm of breast (principal) | CPT/HCPCS: 77063; 77067 ==

== ENCOUNTER → 2024-11-09 12:15 | Outpatient (BNV) | payer MEDICARE, SELFPAY | PROVIDERS: Visit Provider Internal Medicine | DX: Z12.31 Encounter for screening mammogram for malignant neoplasm of breast (principal) | CPT/HCPCS: 77063; 77067 ==

== ENCOUNTER 2024-11-13 09:08 | Outpatient (AMB) | payer MEDICARE, SELFPAY ==
[2024-11-13 09:14] VITALS: PULSE 74; TEMP 36.6; O2SAT 95; BMI 54.9
--- NOTE | 2024-11-13 09:14 | MHC.OFFWIV ---
Intake Vital Signs 11/13/24 09:14 Height 5 ft 2 in Weight 300 lb BMI 54.9 Pulse 74 Pulse Source Pulse Oximeter Temp 97.9 F Temp Source Oral Pulse Oximetry (%) 95 Oxygen Delivery Method Room Air Intake Visit Reasons: EP Lower back pain Intake Note: pt presents with low back pain radiating down right leg for 2 days Patient Tobacco Use Status: Never used Tobacco Allergies aspirin Allergy (Severe, Verified 11/13/24 09:16) Anaphylaxis Quinolones Allergy (Severe, Verified 11/13/24 09:16) Anaphylaxis Sulfa (Sulfonamide Antibiotics) Allergy (Severe, Verified 11/13/24 09:16) Anaphylaxis Do you need a note to return to daycare/school/sports/work: No HPI HPI Comments History of Present Illness Details History - The patient is a 54-year-old female presenting with low back pain and urinary discomfort. - The low back pain began two days ago and has been worsening. - It has been a constant aching pain in the right lower back with no radiation to the flank but to the leg. - No recent heavy lifting or injury reported; currently in physical therapy for left knee issues. - Pain is localized to the right lower back, worsens with movement, and radiates down the right leg. - Urinary discomfort present without systemic symptoms such as frequency or urgency. - Patient uses Tylenol for pain. - She denies trauma or falls. - She denies saddle anesthesia, numbness, tingling, or incontinence. Physical Exam General: cooperative, healthy appearing and comfortable, patient oriented x3 Head: Normal to inspection, normocephalic/atraumatic Effort & Inspection: Normal respiratory effort and able to speak in complete sentences. Cardiac: RRR, no M/R/G noted. Normal S1 and S2. Respiratory: Clear to auscultation bilaterally. No w/r/r noted. GI: Soft, non tender. Negative CVA tenderness noted. Back/spine: No CVA tenderness bilaterally. Cervical, thoracic and lumbar spine normal to inspection. Cervical ROM normal, no midline spinous tenderness noted. Thoracic ROM normal, lumbar ROM limited due to pain. No midline vertebral spinous tenderness noted. No step offs noted. No TTP of the thoracic or lumbar paraspinous or paravertebral muscles. DTR are 2+ on the lower extremities noted. Ambulates with an steady gait. Extremities: Straight leg raise test negative on right; Straight leg raise test negative on left; motor strength normal 5/5 bilaterally. Neuro: Sensation intact. Patient was informed and verbally consented to the use of an ambient scribe for clinic note documentation during this visit. [facility] Medical History Rhinosinusitis Nocturnal hypoxemia Sleep apnea Left knee pain Back pain History of torn meniscus of left knee Breast cancer screening Routine gynecological examination Encounter for colorectal cancer screening Annual physical exam GERD (gastroesophageal reflux disease) IBS (irritable bowel syndrome) Asthma Degenerative disc disease, cervical Surgical History History of esophagogastroduodenoscopy (EGD) H/O colonoscopy Hx of cholecystectomy Hx of section Family History Father Congestive heart failure COPD (chronic obstructive pulmonary disease) Mother Diabetes Mental health problem Intestinal obstruction Daughter Ovarian cancer Daughter No problems noted. Son No problems noted. Son No problems noted. Son No problems noted. Social History Household Members: Family Housing: House Alcohol intake: never Patient Tobacco Use Status: Never used Tobacco e-Cigarette/Vaping Use: Never Used Second Hand Smoke Exposure: No service: No Current occupational status: disabled Cognitive needs: Yes (Walker) Hearing needs: No Vision needs: Yes (Glasses) Review of Systems Const All systems reviewed & are unremarkable except as noted in HPI and below Physical Exam Vital Signs: Last Vital Signs Temp 97.9 F 11/13/24 09:14 Pulse 74 11/13/24 09:14 Pulse Ox 95 11/13/24 09:14 Oxygen Delivery Method Room Air 11/13/24 09:14 BMI result Body Mass Index 54.9 Assessment & Plan Assessment & Plan (1) Low back pain: Code(s): M54.50 - Low back pain, unspecified Qualifiers: Chronicity: chronic Back pain laterality: bilateral Sciatica presence: without sciatica Qualified Code(s): M54.50 - Low back pain, unspecified; G89.29 - Other chronic pain Plan Most likely muscle strain vs arthritis vs sciatica UA 1+nicholas Plan - Prescribe a muscle relaxant for back pain management. - Perform urinalysis to check for infection. - rest, heat to the area - activities as tolerated - continue with PT - follow up with PCP Orders: Orders AMB Urinalysis Automated Today M54.9 - Dorsalgia, unspecified Medications: New cyclobenzaprine 5 mg PO Q8H PRN 20 tabs 0RF Muscle Spasm Coding Level of Care Code Est Pt Level 4 (41374) Diagnoses Chronic bilateral low back pain without sciatica M54.50; G89.29 Chronicity: chronic Back pain laterality: bilateral Sciatica presence: without sciatica
== END 2024-11-13 10:16 | disposition home or self-care (01) ==
PROVIDERS: Visit Provider Physician Assistant Medical
DX: M54.50 Low back pain, unspecified (principal); G89.29 Other chronic pain; M54.9 Dorsalgia, unspecified

== ENCOUNTER → 2024-11-13 09:08 | Outpatient (BNVA) | payer MEDICARE, MEDICAID, SELFPAY | PROVIDERS: Visit Provider Physician Assistant Medical | DX: M79.604 Pain in right leg (principal); M54.50 Low back pain, unspecified; G89.29 Other chronic pain | CPT/HCPCS: 81003; 99212 ==

== ENCOUNTER 2024-11-22 08:54 | Outpatient (REF) | payer MEDICARE, MEDICAID, SELFPAY ==
[2024-11-22 11:22] LABS: Alanine Aminotransferase 21 U/L (0-31); Albumin Level 4.1 g/dL (3.5-5.0); Alkaline Phosphatase 47 U/L (39-117); Anion Gap 14 (12-20); Aspartate Amino Transferase 29 U/L (5-31); Blood Urea Nitrogen 18 mg/dL (9-16); Calcium 9.1 mg/dL (8.4-10.2); Carbon Dioxide 26 mmol/L (22-29); Chloride 107 mmol/L (96-108); Cholesterol 122 mg/dL (<200); Estimated Glomerular Filt Rate > 60; HDL Cholesterol 42 mg/dL (>40); Potassium 4.5 mmol/L (3.3-5.1); Sodium 142 mmol/L (135-145); Total Protein 6.6 g/dL (6.5-8.0); Triglycerides 142 mg/dL (<150)
[2024-11-22 12:42] LABS: Free T4 (Free Thyroxine) 0.99 ng/dL (0.71-1.85)
== END 2024-11-22 08:55 | disposition home or self-care (01) ==
LOC: HO.LAB 08:54
DX: Z13.89 Encounter for screening for other disorder (principal)
CPT/HCPCS: 36415; 80053; 80061; 82306; 84439; 84443; 99202; G0101; Q0091

== ENCOUNTER 2024-11-22 10:28 | Outpatient (AMB) | payer MEDICARE, SELFPAY ==
--- NOTE | 2024-11-22 10:42 | MHC.OFFVIS ---
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 Intake Note: Last pap +15yrs normal hx per pt Cafe Or Restaurant Manager Required: Yes Cafe Or Restaurant Manager Language: Special Programs Director Services: Cafe Or Restaurant Manager Present (in person) Cafe Or Restaurant Manager Name: Nancy SMALLWOOD Information Interpreted: non-clinical & clinical School Counsellor: School Counsellor Present (Nancy SMALLWOOD) Allergies aspirin Allergy (Severe, Verified 11/13/24 09:16) Anaphylaxis Quinolones Allergy (Severe, Verified 11/13/24 09:16) Anaphylaxis Sulfa (Sulfonamide Antibiotics) Allergy (Severe, Verified 11/13/24 09:16) Anaphylaxis HPI Comments Details: Patient is a postmenopausal woman presenting for her new patient annual application helper examination. [employer]velopment [employer] Manager concerns: she reports warts in the vaginal area, had treatment 10yrs. ago w/topical acid. Currently sexually active >10yrs. ago. Denies any vaginal dryness or irritation. STI testing offered; she accepts. Attempting to eat a healthy diet with calcium and vitamin D and stays active with exercise. Last pap smear; specific in her 40s, negative. Last mammogram; 2024. Colonoscopy is being scheduled. Family history of ovarian cancer. [facility] Medical History Encounter for well woman exam with routine gynecological exam Rhinosinusitis Nocturnal hypoxemia Sleep apnea Left knee pain Back pain History of torn meniscus of left knee Breast cancer screening Routine gynecological examination Encounter for colorectal cancer screening Annual physical exam GERD (gastroesophageal reflux disease) IBS (irritable bowel syndrome) Asthma Degenerative disc disease, cervical Surgical History History of esophagogastroduodenoscopy (EGD) H/O colonoscopy Hx of cholecystectomy Hx of section Family History Father Congestive heart failure COPD (chronic obstructive pulmonary disease) Mother Diabetes Mental health problem Intestinal obstruction Daughter Ovarian cancer Daughter No problems noted. Son No problems noted. Son No problems noted. Son No problems noted. Social History Household Members: Family Housing: House Alcohol intake: never Patient Tobacco Use Status: Never used Tobacco e-Cigarette/Vaping Use: Never Used Second Hand Smoke Exposure: No service: No Current occupational status: disabled Cognitive needs: Yes (Walker) Hearing needs: No Vision needs: Yes (Glasses) Female Reproductive History Menstrual Total pregnancies: 6 Full term: 5 Number of Living Children: 5 Ab spontaneous: 1 Date of Mammogram: 11/09/24 (Birad 1) Review of Systems Const All systems reviewed & are unremarkable except as noted in HPI and below Reports as per HPI Eyes Reports no additional complaints ENT Reports no additional complaints Card Reports no additional complaints Resp Reports no additional complaints GI Reports as per HPI and Reports no additional complaints Reports as per HPI Musc Reports no additional complaints Skin/Breast Reports as per HPI Neuro Reports no additional complaints Psych Reports no additional complaints Endo Reports no additional complaints Tony/Lymph Reports no additional complaints Aller/Immun Reports no additional complaints Physical Exam Vital Signs: Last Vital Signs BP 122/76 11/22/24 10:45 BMI result Body Mass Index 54.9 Const General: cooperative, healthy appearing, no acute distress, well developed and alert Orientation/consciousness: patient oriented x3 HEENT Head: Yes normal to inspection Eyes General: appearance normal, both eyes and all related structures Neck Neck: Yes normal visual inspection Thyroid: Thyroid normal Chest Chest palpation & inspection: normal inspection of the chest and other (no puckering, dimpling, peau de orange, retraction, discharge, masses) Breast/axilla inspection: normal inspection of the breasts Breast/axilla palpation: normal palpation of the breasts Resp Effort & Inspection: normal respiratory effort GI Inspection: Yes normal to inspection and Yes obesity Palpation (GI): Soft to palpation Rectal Exam - Female: deferred Other: Several small nontender sebaccous glands, black flat lesions scattered both labia General: Yes bladder normal to palpation External Female Exam: normal external appearance and normal appearance of the urethra Speculum Exam - Vagina: normal appearance of the vagina, normal palpation, normal vaginal discharge and vagina atrophic Speculum Exam - Cervix: normal appearance of the cervix, normal palpation and Other cervical findings present (Very deep cervix anteriorly, longest speculum available utilized) Bimanual exam- vagina & uterus: normal bimanual exam, normal palpation, uterine size normal, bladder normal to palpation, normal palpation and non-tender Bimanual Exam- Adnexa, other: no masses Skin General skin exam: no rashes or lesions noted Rashes: no rashes Neuro General: patient oriented x3 Cognition (Neuro): normal cognition Extrem General: Yes normal to inspection Psych Attitude: cooperative Thought process: Normal thought process present Assessment & Plan Assessment & Plan (1) Encounter for well woman exam with routine gynecological exam: Code(s): Z01.419 - Encounter for gynecological examination (general) (routine) without abnormal findings Category: Medical Plan: Discussed: Current recommendations for pap smears per ASCCP guidelines. Breast awareness, periodic self breast exams and yearly mammogram. Maintain a healthy lifestyle, well balanced diet including Calcium 1,200 mg and Vitamin D 600 IU daily, and routine exercise Contact the office with any postmenopausal bleeding. Patient verbalizes understanding and agrees to the plan of care. She was given opportunity to ask questions and all questions were answered to the best of my ability. RTO in 1 year for annual application helper exam. This note is constructed using voice recognition software. While every effort has been made to ensure accuracy, sweeper operator highways errors may have been included. (2) Vulvar lesion: Code(s): N90.89 - Other specified noninflammatory disorders of vulva and perineum Plan Discussed normal skin findings and additionally advised to return to the office for vulvar biopsy due to dark vulvar lesions. The patient expressed understanding and agreement with the plan of care. All of her questions and concerns were addressed to the best of my ability. Appointment follow up appointment to be made prior to leaving the office. Total time I personally spent on visit and management today: ?15 minutes. Time spent included review of pertinent office notes in the electronic health record; review of laboratory and imaging results; review of personal family medical history; performing physical exam; discussing diagnosis and plan of care with the patient; documenting the encounter in the EMR. Orders: Orders Hepatitis B Core Antibody Today Z20.2 - Contact with and (suspected) exposure to infections with a predominantly sexual mode of transmission Hepatitis C Antibody Reflex Today Z20.2 - Contact with and (suspected) exposure to infections with a predominantly sexual mode of transmission CT NG by PCR Vag/Cerv Today Z01419 - Encounter for gynecological examination (general) (routine) without abnormal findings HPV High risk Today Z01.419 - Encounter for gynecological examination (general) (routine) without abnormal findings HIV Ab/Ag Today Z20.2 - Contact with and (suspected) exposure to infections with a predominantly sexual mode of transmission Syphilis Screen Today Z20.2 - Contact with and (suspected) exposure to infections with a predominantly sexual mode of transmission Pap Smear Today Z01.419 - Encounter for gynecological examination (general) (routine) without abnormal findings Bacterial Vaginosis Panel Today Z01.419 - Encounter for gynecological examination (general) (routine) without abnormal findings Coding Level of Care Code New Pt Level 2 (83651) New Pt Prev Care 40-64y(34084) Diagnoses Encounter for well woman exam with routine gynecological exam Z01.419 Vulvar lesion N90.89
[2024-11-22 10:45] VITALS: BP 122/76; BMI 54.9
== END 2024-11-22 11:52 | disposition home or self-care (01) ==
LOC: HO.HWS 10:28
PROVIDERS: Visit Provider Advanced Practice Midwife
DX: Z01.419 Encounter for gynecological examination (general) (routine) without abnormal findings (principal); N90.89 Other specified noninflammatory disorders of vulva and perineum
CPT/HCPCS: 99202; G0101; Q0091

== ENCOUNTER 2024-11-22 11:46 | Outpatient (REF) | payer MEDICARE, MEDICAID, SELFPAY ==
[2024-11-22 16:27] LABS: Bacterial Vaginosis PCR NEGATIVE (Negative); Candida Group PCR NOT DETECTED (Not Detect); Candida glab krusei PCR NOT DETECTED (Not Detect); Trichomonas vaginalis PCR NOT DETECTED (Not Detect)
[2024-11-22 17:00] LABS: CT PCR NOT DETECTED (Not Detect.); NG PCR NOT DETECTED (Not Detect.)
== END 2024-11-22 11:47 | disposition home or self-care (01) ==
LOC: HO.LNP 11:46
PROVIDERS: Visit Provider Advanced Practice Midwife
DX: Z01.419 Encounter for gynecological examination (general) (routine) without abnormal findings (principal); Z11.51 Encounter for screening for human papillomavirus (HPV); Z20.2 Contact with and (suspected) exposure to infections with a predominantly sexual mode of transmission; Z13.6 Encounter for screening for cardiovascular disorders
CPT/HCPCS: 36415; 80053; 80061; 81515; 82306; 84439; 84443; 87491; 87591; 87626; 88175; 99202; G0101; Q0091

== ENCOUNTER 2024-11-26 12:42 | Outpatient (REF) | payer MEDICARE, MEDICAID, SELFPAY ==
[2024-11-27 08:26] LABS: Syphilis Screen Nonreactive (Nonreactive)
[2024-11-27 13:13] LABS: HBc Num1 0.18 S/CO (0.00-0.79); HIV Num 1 0.10 S/CO (0.00-0.99); ~HepC Num1 3.51 S/CO (0.00-0.79); ~Hepatitis C Antibody Reactive (Nonreactive)
[2024-11-29 14:28] LABS: HCV Log PCR <1.18 NOT DETECTED Log IU/mL (NOT DETECTED); HepC Viral Load <15 NOT DETECTED IU/mL (NOT DETECTED)
== END 2024-11-26 12:43 | disposition home or self-care (01) ==
LOC: HO.LAB 12:42
PROVIDERS: Visit Provider Advanced Practice Midwife
DX: G47.33 Obstructive sleep apnea (adult) (pediatric) (principal); J45.909 Unspecified asthma, uncomplicated; E66.01 Morbid (severe) obesity due to excess calories; Z68.43 Body mass index [BMI] 50.0-59.9, adult; Z99.89 Dependence on other enabling machines and devices; Z20.2 Contact with and (suspected) exposure to infections with a predominantly sexual mode of transmission; Z11.4 Encounter for screening for human immunodeficiency virus [HIV]; Z79.899 Other long term (current) drug therapy
CPT/HCPCS: 36415; 86704; 86780; 86803; 87389; 87522; 99212

== ENCOUNTER 2024-11-26 13:51 | Outpatient (AMB) | payer MEDICARE, SELFPAY ==
[2024-11-26 14:59] VITALS: BP 142/78; PULSE 72; O2SAT 97; BMI 55.4
--- NOTE | 2024-11-26 14:59 | MHC.OFFVIS ---
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 Group Controller Required: Yes Group Controller Services: Group Controller Present Group Controller Name: [id number] Allergies aspirin Allergy (Severe, Verified 11/26/24 15:24) Anaphylaxis Quinolones Allergy (Severe, Verified 11/26/24 15:24) Anaphylaxis Sulfa (Sulfonamide Antibiotics) Allergy (Severe, Verified 11/26/24 15:24) Anaphylaxis Medication List - Last Reconciled 11/26/24 by Mariel Chopra MD acetaminophen ER (Tylenol 8 Hour) 1,300 mg (2 x 650 mg) PO Q12H albuterol sulfate 90 mcg/actuation 2 puffs inhalation Q4-6H PRN amitriptyline mg PO aripiprazole 20 mg PO DAILY atenolol 25 mg PO DAILY azelastine 1 spray intranasal BID bisacodyl (Dulcolax (bisacodyl)) 10 mg (2 x 5 mg) PO BEDTIME 2 days buspirone 10 mg PO QPM cholecalciferol (vitamin D3) 25 mcg PO DAILY cyclobenzaprine 5 mg PO Q8H PRN diclofenac sodium 1% 4 grams topical QID epinephrine (EpiPen 2-Adolfo) 0.3 mg (0.3 mL) IM Q10M PRN famotidine (Pepcid) 20 mg PO BEDTIME fenofibrate nanocrystallized 145 mg PO DAILY fluticasone propionate 50 mcg/actuation 1 spray intranasal BID gabapentin 300 mg PO BEDTIME gabapentin 100 mg PO DAILY montelukast 10 mg PO QPM omeprazole 40 mg PO DAILY peg 3350-electrolytes 236-22.74-6.74 -5.86 gram (Golytely) 240 mL PO Q10M 1 day tirzepatide (weight loss) (Zepbound) 2.5 mg (0.5 mL) subcut QWEEK venlafaxine ER 75 mg PO DAILY venlafaxine ER 150 mg PO DAILY Do you need a note to return to daycare/school/sports/work: No HPI HPI mahogany: Details: THIS 54 YEARS OLD MALAY-SPEAKING FEMALE IS BEING SEEN FOR THE 1ST TIME FOR MANAGEMENT OF HER SLEEP APNEA. SHE HAS BEEN GROSSLY OBESE FOR THE PAST MANY YEARS. SHE HAS BEEN COMPLAINING OF FREQUENT AWAKENING DURING THE NIGHT AND HAVING POOR SLEEP FOR ABOUT 2 YEARS OR MORE. SHE HAD A HOME-BASED SLEEP STUDY ON AUGUST 01, ORDERED BY HER PRIMARY CARE PHYSICIAN. THE SLEEP STUDY WAS GROSSLY ABNORMAL SHOWING SEVERE OBSTRUCTIVE SLEEP APNEA WITH TOTAL SLEEP TIME AHI 76, AND IN ADDITION SHE ALSO HAD SIGNIFICANT NOCTURNAL HYPOXEMIA. THUS A CPAP TITRATION STUDY IN THE SLEEP LAB WAS RECOMMENDED. SHE UNDERWENT POLYSOMNOGRAM STUDY WITH CPAP TITRATION ON 10/01 OF THIS YEAR. CPAP TITRATION WAS SUCCESSFUL WITH A FULLFACE MASK OF SMALL SIZE BUT SHE DID REQUIRE BILEVEL PRESSURES OF 20/16 TO OVERCOME THE OBSTRUCTIVE EVENTS. SHE DID NOT NEED O2 SUPPLEMENTATION. AFTER COMPLETION OF THIS STUDY THE PRIMARY CARE PHYSICIAN HAD ORDERED A BIPAP DEVICE,. WITH A FULLFACE MASK SHE SAY IS THAT SHE IS SLEEPING MUCH BETTER AND HAS NO ISSUE WITH THE SLEEP SINCE SHE IS USING THE CPAP. SHE HAS BEEN REFERRED TO US FOR ONGOING MANAGEMENT OF HER SLEEP APNEA. THIS PATIENT HAS MORBID OBESITY. AND IS NOT IN ANY PROGRAM TO LOSE WEIGHT. SHE ALSO HAS HISTORY OF CHRONIC ANXIETY/DEPRESSION, ALONG WITH HYPERTENSION CHRONIC BACK AND NECK PAIN [facility] RE[facility]ED. SHE DENIES SMOKING, AND DENIES HISTORY OF CHRONIC LUNG DISEASE EXCEPT FOR MILD INTERMITTENT ASTHMA LIKE SYMPTOMS. [facility] Medical History Encounter for well woman exam with routine gynecological exam Rhinosinusitis Nocturnal hypoxemia Sleep apnea Left knee pain Back pain History of torn meniscus of left knee Breast cancer screening Routine gynecological examination Encounter for colorectal cancer screening Annual physical exam GERD (gastroesophageal reflux disease) IBS (irritable bowel syndrome) Asthma Degenerative disc disease, cervical Surgical History History of esophagogastroduodenoscopy (EGD) H/O colonoscopy Hx of cholecystectomy Hx of section Family History Father Congestive heart failure COPD (chronic obstructive pulmonary disease) Mother Diabetes Mental health problem Intestinal obstruction Daughter Ovarian cancer Daughter No problems noted. Son No problems noted. Son No problems noted. Son No problems noted. Social History Household Members: Family Housing: House Alcohol intake: never Patient Tobacco Use Status: Never used Tobacco e-Cigarette/Vaping Use: Never Used Second Hand Smoke Exposure: No service: No Current occupational status: disabled Cognitive needs: Yes (Walker) Hearing needs: No Vision needs: Yes (Glasses) Review of Systems Const All systems reviewed & are unremarkable except as noted in HPI and below Eyes Reports no additional complaints ENT Reports nasal congestion (INTERMITTENT) Card Denies chest pain, Denies syncope, Denies irregular heart rhythm and Denies leg edema Resp Reports as per HPI GI Reports no additional complaints Reports no additional complaints Musc Reports back pain and Reports arthralgias (KNEES) Skin/Breast Reports system reviewed and no additional complaints, except as documented Neuro Reports no additional complaints and Denies syncope Psych Reports anxiety and Reports depression Endo Reports no additional complaints Tony/Lymph Reports no additional complaints Physical Exam Vital Signs: Last Vital Signs Pulse 72 11/26/24 14:59 BP 142/78 H 11/26/24 14:59 Pulse Ox 97 11/26/24 14:59 Oxygen Delivery Method Room Air 11/26/24 14:59 BMI result Body Mass Index 55.4 SHE IS GROSSLY OBESE, WITH A ROUND FACE, SHORT NECK AND MALLAMPATI SCALE 4. Const General: comfortable, no acute distress, alert and awake Orientation/consciousness: patient oriented x3 HEENT Head: Yes normal to inspection General nose exam: No nasal polyps present, No nasal discharge present and Other nasal findings present (SHE DOES HAVE NASAL CONGESTION ESPECIALLY ON THE LEFT SIDE) Face and sinus: Yes sinuses nontender Mouth: oropharynx abnormals (VERY NARROW AND CROWDED, MALLAMPATI CLASS 4) Throat: Yes posterior oropharynx normal Eyes General: appearance normal, both eyes and all related structures Neck Neck: Yes normal visual inspection, Yes no lymphadenopathy, Yes trachea midline and Yes no JVD Thyroid: Thyroid normal Chest Chest palpation & inspection: normal inspection of the chest, normal palpation of entire chest wall and no tenderness Resp Other: PERCUSSION NOTE IS NOT PERCEPTIBLE, BREATH SOUNDS ARE VERY DISTANT, NO WHEEZES OR RHONCHI ARE HEARD Cardio Palpation: normal PMI (NOT PALPABLE) Rate: regular rate Rhythm: regular rhythm Heart sounds: no gallops and no murmurs Peripheral pulses: Peripheral pulses 2+ throughout GI Palpation (GI): Soft to palpation, nontender, No hepatosplenomegaly present and no masses Auscultation: normal bowel sounds Back/Spine/Pelvis Thoracic/Lumbar Spine: thoracic and lumbar spine normal to inspection and thoraco-lumbar ROM limited Skin General skin exam: no rashes or lesions noted Neuro General: patient oriented x3 and no focal motor deficits Cranial nerves: Yes CN's II-XII intact bilaterally Extrem General: Yes normal to inspection, Yes no clubbing, cyanosis or edema and Yes no calf tenderness Psych Appearance: grossly normal and well kempt Speech and movement: Normal speech and movement present Results Reviewed Results Reviewed: BASELINE HOME-BASED SLEEP STUDY ON 08/01 VERY SEVERE OBSTRUCTIVE SLEEP APNEA WITH TOTAL SLEEP TIME AHI 76. WITH NOCTURNAL HYPOXEMIA . CPAP TITRATION STUDY PERFORMED IN THE SLEEP LAB ON 10/04/2024, WAS VERY SUCCESSFUL ALL SLEEP APNEA WAS RESOLVED BUT WITH A HIGH PRESSURE OF 20/16 CM. Assessment & Plan Assessment & Plan (1) Asthma: Comment: SHE HAS HISTORY OF MILD INTERMITTENT WHEEZES, SUGGESTING MILD INTERMITTENT BRONCHIAL ASTHMA Code(s): J45.909 - Unspecified asthma, uncomplicated Category: Medical Qualifiers: Asthma severity: unspecified severity Asthma persistence: unspecified Asthma complication type: unspecified Qualified Code(s): J45.909 - Unspecified asthma, uncomplicated Plan: USE ALBUTEROL HFA 2 PUFFS Q 4-6 HOURS ONLY P.R.N. IF THERE IS AN ACTIVE WHEEZING. (2) Morbid obesity with BMI of 50.0-59.9, adult: Comment: SHE HAS HISTORY OF MORBID OBESITY DURING THE PAST 5-6 YEARS OR MORE. NOT ABLE TO DO MUCH WALKING OR EXERCISE. DOES NOT HAVE MUCH CONTROL ON DIET. Code(s): E66.01 - Morbid (severe) obesity due to excess calories; Z68.43 - Body mass index [BMI] 50.0-59.9, adult Category: Medical Plan: SHE NEEDS TO GET INTO AWAY MANAGEMENT PROGRAM. BUT AFTER SHE HAS WELL CONTROLLED OBSTRUCTIVE SLEEP APNEA AND FEELS MORE ENERGETIC. (3) MAHOGANY (obstructive sleep apnea): Comment: SHE DOES HAVE VERY VERY SEVERE OBSTRUCTIVE SLEEP APNEA WITH NOCTURNAL HYPOXEMIA HAD VERY SUCCESSFUL CPAP TITRATION AND REQUIRED BIPAP 20/16 CM USING FULLFACE MASK . AT THIS PRESSURE SETTING SHE DID NOT REQUIRE THE OXYGEN. Code(s): G47.33 - Obstructive sleep apnea (adult) (pediatric) Category: Medical Plan: SHE HAS BEEN STARTED ON BIPAP THERAPY. WE CHECKED HER COMPLIANCE SO FOR IS EXCELLENT. SHE IS COMMENDED FOR GOOD COMPLIANCE AND ADVISED TO KEEP ON USING THE BIPAP REGULARLY, AT LEAST FOR 6 HOURS EVERY NIGHT Coding Level of Care Code New Pt Level 4 (04512) Diagnoses Asthma, unspecified asthma severity, unspecified whether complicated, unspecified whether persistent J45.909 Asthma severity: unspecified severity Asthma persistence: unspecified Asthma complication type: unspecified Morbid obesity with BMI of 50.0-59.9, adult E66.01; Z68.43 MAHOGANY (obstructive sleep apnea) G47.33
== END 2024-11-26 15:20 | disposition home or self-care (01) ==
LOC: HO.HPS 13:52
PROVIDERS: Visit Provider Internal Medicine
DX: J45.909 Unspecified asthma, uncomplicated (principal); E66.01 Morbid (severe) obesity due to excess calories; Z68.43 Body mass index [BMI] 50.0-59.9, adult; G47.33 Obstructive sleep apnea (adult) (pediatric)
CPT/HCPCS: 99214

== ENCOUNTER 2024-12-04 14:00 | Outpatient (RCR) | payer MEDICARE, MEDICAID, SELFPAY ==
--- NOTE | 2024-11-01 13:48 | MHC.PT.EP ---
[facility] [place] [facility] [place] [facility] [place] [facility] [address] Mariela Clay [address] [phone] F: [phone] F: [phone] F: [phone] F: [phone] Physical Therapy Plan of Care Date of Evaluation: 11/01/24 Date of Surgery: n/a Diagnosis: OA L knee Assessment: Patient is a 53 year old female presenting to PT with complaints of pain in her L knee. Pt reports onset of pain began 8 years ago due to a fall. She presents today with impairments in hip strength, knee strength, ROM. Pt's current occupation is none, with baseline physical activities including ambulating, and stair negotiation. 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 Clinical presentation today is most consistent with signs and sx associated with L knee pain and pt will benefit from skilled PT 2 week x 4 weeks to address the following problems and impairments noted upon evaluation: pain, hip strength, knee strength, ROM. These problems limit the patient with the following functional activities: ambulating, stair negotiation. The prescribed treatment plan of care is medically necessary. Co-morbidities of hx meniscus tear L knee were identified and taken into considerations of plan of care. Pt was educated on HEP, role of PT, prognosis, POC. Frequency and Duration: The patient will be seen 2 x week x 4 weeks Short Term Goals: Pt will demonstrate improved hip MMT strength by 1/3 grade in 2 weeks. Pt will demonstrate improved knee MMT strength by 1/3 grade in 2 weeks. Penitentiary Goals: Pt will demonstrate improved LEFI score by 9 points in 4 weeks for improved functional mobility. Pt will demonstrate ability to ambulate with min to no pain in 4 weeks for improved access to the community. Pt will demonstrate ability to negotiate stairs with min to no pain in 4 weeks for improved access to her home. Treatment Plan: Modalities to reduce pain, spasms and effusion. Manual therapy to restore motion and function. Therapeutic exercise to improve strength and flexibility. Neuromuscular re-education for posture and balance. Therapeutic activities to return to functional activities of daily living. Electronically signed by: Lia Gloria, PT, DPT, ATC Please sign and return to therapist. Thank you for your referral.
--- NOTE | 2025-01-09 08:18 | MHC.PT.DC ---
[facility] [place] Office [place] Office [place] Office [address] [phone] F: [phone] F: [phone] F: [phone] F: [phone] Physical Therapy Discharge Report Diagnosis: OA L knee Date of Surgery: n/a Date of Evaluation: 11/01/24 Date of Discharge: 01/09/25 Treatments to Date: 7 Cancellations to Date: 0 No Shows to Date: 0 Discharge Status: Discharge Summary: Pt has not attended skilled PT in >30 days therefore to be d/c per policy. Electronically signed by: Lia Gloria, PT, DPT, ATC Please sign and return to therapist. Thank you for your referral.
== END 2025-01-09 08:19 | disposition home or self-care (01) ==
LOC: HO.PTCHIC 14:00
PROVIDERS: Visit Provider Physician Assistant
DX: M17.12 Unilateral primary osteoarthritis, left knee (principal)
CPT/HCPCS: 97110; 97161

== ENCOUNTER 2024-12-06 11:25 | Outpatient (AMB) | payer MEDICARE, SELFPAY ==
--- NOTE | 2024-12-06 11:28 | MHC.OFFVIS ---
Vital Signs 12/06/24 11:33 Height 5 ft 2 in Weight 286 lb BMI 52.3 Intake Visit Reasons: OV-Lower back pain and neck pain follow up Intake Note: Deacon is a 54 year old female who presents today as a follow up for her lower back and neck pain. At last visit we referred her to physical therapy. At today's visit she states that due to having two appointments for physical therapy she is working on her Knee then she can be booked for her back appointment at the end of December. Patient states that about a month ago her lower back pain is now radiating into the right thigh, she noted that due to the pain she was seen at [facility] walk in. Patient states that since last visit she feels that her neck pain is now manageable. Allergies aspirin Allergy (Severe, Verified 11/26/24 15:24) Anaphylaxis Quinolones Allergy (Severe, Verified 11/26/24 15:24) Anaphylaxis Sulfa (Sulfonamide Antibiotics) Allergy (Severe, Verified 11/26/24 15:24) Anaphylaxis Medication List - Last Reconciled 12/06/24 by Katty Mullins MD acetaminophen ER (Tylenol 8 Hour) 1,300 mg (2 x 650 mg) PO Q12H albuterol sulfate 90 mcg/actuation 2 puffs inhalation Q4-6H PRN amitriptyline mg PO aripiprazole 20 mg PO DAILY atenolol 25 mg PO DAILY azelastine 1 spray intranasal BID bisacodyl (Dulcolax (bisacodyl)) 10 mg (2 x 5 mg) PO BEDTIME 2 days buspirone 10 mg PO QPM cholecalciferol (vitamin D3) 25 mcg PO DAILY cyclobenzaprine 5 mg PO Q8H PRN diclofenac sodium 1% 4 grams topical QID epinephrine (EpiPen 2-Adolfo) 0.3 mg (0.3 mL) IM Q10M PRN famotidine (Pepcid) 20 mg PO BEDTIME fenofibrate nanocrystallized 145 mg PO DAILY fluticasone propionate 50 mcg/actuation 1 spray intranasal BID gabapentin 300 mg PO BEDTIME gabapentin 100 mg PO DAILY montelukast 10 mg PO QPM omeprazole 40 mg PO DAILY peg 3350-electrolytes 236-22.74-6.74 -5.86 gram (Golytely) 240 mL PO Q10M 1 day tirzepatide (weight loss) (Zepbound) 2.5 mg (0.5 mL) subcut QWEEK venlafaxine ER 75 mg PO DAILY venlafaxine ER 150 mg PO DAILY HPI Comments Details: Since last visit, patient was found to have positive PATRICIA. She told me that she was diagnosed with rheumatoid arthritis when she was younger but have not followed up. She was referred to rheumatology and she has upcoming appointment with them. Multiple x-ray showed degenerative changes but no erosions. Neck pain is better, from muscle relaxer which helps. Lower back is the same. Xray from June 2024 was unremarkable. She denies any radiation to the legs. No numbness. She finished PT for knee pain, waiting to start PT for back pain. [facility] Medical History Encounter for well woman exam with routine gynecological exam Rhinosinusitis Nocturnal hypoxemia Sleep apnea Left knee pain Back pain History of torn meniscus of left knee Breast cancer screening Routine gynecological examination Encounter for colorectal cancer screening Annual physical exam GERD (gastroesophageal reflux disease) IBS (irritable bowel syndrome) Asthma Degenerative disc disease, cervical Surgical History History of esophagogastroduodenoscopy (EGD) H/O colonoscopy Hx of cholecystectomy Hx of section Family History Father Congestive heart failure COPD (chronic obstructive pulmonary disease) Mother Diabetes Mental health problem Intestinal obstruction Daughter Ovarian cancer Daughter No problems noted. Son No problems noted. Son No problems noted. Son No problems noted. Social History Household Members: Family Housing: House Alcohol intake: never Patient Tobacco Use Status: Never used Tobacco e-Cigarette/Vaping Use: Never Used Second Hand Smoke Exposure: No service: No Current occupational status: disabled Cognitive needs: Yes (Walker) Hearing needs: No Vision needs: Yes (Glasses) Physical Exam Exam Exam: Constitutional: Patient appears to be in no acute distress, well nourished and well developed. Patient was appropriately conversant and oriented. Good historian. MSK: No tenderness over SI joints. Neurological: Neurologic examination of the upper and lower extremities was nonfocal with intact sensation, muscle stretch reflexes and without focal motor deficits . Gait is non-antalgic without loss of balance. Vital Signs: BMI result Body Mass Index 52.3 Results Reviewed Results Reviewed: Ordering Physician: Ernesto Portillo Date of Service: 06/08/24 Procedure(s): XR cervical spine 3V Accession Number(s): [id number] cc: Ernesto Portillo~ EXAMINATION: XR CERVICAL SPINE CLINICAL INFORMATION: M50.30 - Other cervical disc degeneration, unspecified cervical region COMPARISON: None available. TECHNIQUE: 3 views of the cervical spine were obtained. FINDINGS: There is maintained cervical lordosis. The vertebral heights and alignment are normal. There is mild loss of C6-7 and C7-T1 disc height. Rest the disc heights are normal. The prevertebral and paravertebral soft tissues are normal. No aggressive lytic or sclerotic process seen. XR/XR cervical spine 3V IMPRESSION: Mild degenerative disc changes C6-7 and C7-T1 disc levels Electronically signed by: Byron Álvarez MD 06/08/2024 12:29 PM EDT RP Ordering Physician: Ernesto Portillo Date of Service: 06/08/24 Procedure(s): XR lumbar spine 2-3V Accession Number(s): [id number] cc: Enresto Portillo~ EXAMINATION: XR LUMBOSACRAL SPINE CLINICAL INFORMATION: M50.30 - Other cervical disc degeneration, unspecified cervical region COMPARISON: None available. TECHNIQUE: Three views of the lumbosacral spine. FINDINGS: There is normal lumbar lordosis. The vertebral heights and alignment is normal. There is mild loss of L5-S1 disc height. There is mild dextroscoliosis. There is no acute fracture, dislocation, lytic or sclerotic process seen. SI joints are normal. XR/XR lumbar spine 2-3V IMPRESSION: Unremarkable lumbar spine exam. There is mild scoliosis. Electronically signed by: Byron Álvarez MD 06/08/2024 12:17 PM EDT RP Assessment & Plan Assessment & Plan (1) Low back pain: Code(s): M54.50 - Low back pain, unspecified Category: Medical Qualifiers: Chronicity: chronic Back pain laterality: bilateral Sciatica presence: without sciatica Qualified Code(s): M54.50 - Low back pain, unspecified; G89.29 - Other chronic pain Plan Chronic neck and back pain. But improved with flexeril. Waiting to start PT. To see rheumatology for positive PATRICIA and past history of juvenile RA. But scheduled 12/2025, patient to call them if can be moved sooner. Refilled cyclobenzaprine 5mg qhs prn. Assessment and plan discussed with patient, and patient was agreeable. All questions were answered thoroughly. Follow up 4 months. Katty Mullins MD, CHACHA Board Certified, [place] [employer] and [employer] (ABPMR) Board Certified, [place] [employer] (ABEM) Orders: Orders PT Evaluation and Treatment 09/27/24 G89.29 - Other chronic pain, M54.2 - Cervicalgia, M54.50 - Low back pain, unspecified Medications: Changed From cyclobenzaprine 5 mg PO Q8H PRN 20 tabs 0RF Muscle Spasm To cyclobenzaprine 5 mg PO .qhs PRN 30 tabs 2RF Muscle Spasm Coding Level of Care Code Est Pt Level 4 (26442) Diagnoses Chronic bilateral low back pain without sciatica M54.50; G89.29 Chronicity: chronic Back pain laterality: bilateral Sciatica presence: without sciatica
[2024-12-06 11:33] VITALS: BMI 52.3
== END 2024-12-06 11:51 | disposition home or self-care (01) ==
LOC: HO.HOS 11:26
PROVIDERS: Visit Provider Physical Medicine & Rehabilitation
DX: M54.50 Low back pain, unspecified (principal); G89.29 Other chronic pain
CPT/HCPCS: 99214

== ENCOUNTER → 2024-12-06 11:25 | Outpatient (BNVA) | payer MEDICARE, MEDICAID, SELFPAY | PROVIDERS: Visit Provider Physical Medicine & Rehabilitation | DX: M54.59 Other low back pain (principal); G89.29 Other chronic pain | CPT/HCPCS: 99212 ==

== ENCOUNTER 2024-12-13 09:15 | Outpatient (REF) | payer MEDICARE, MEDICAID, SELFPAY | END 2024-12-13 09:16 | disposition home or self-care (01) | LOC: HO.LNP 09:15 | PROVIDERS: Visit Provider Advanced Practice Midwife | DX: N90.89 Other specified noninflammatory disorders of vulva and perineum (principal) | CPT/HCPCS: 56605; 88305 ==

== ENCOUNTER 2024-12-13 09:15 | Outpatient (AMB) | payer MEDICARE, SELFPAY ==
--- NOTE | 2024-12-13 09:29 | A.OFFVIS_ITS ---
Vital Signs 3 12/13/24 09:31 Height 5 ft 2 in Weight 286 lb BMI 52.3 BP 138/80 Blood Pressure Location Rt brachial Position Sitting Intake Visit Reasons: Skin Biopsy Intake Note: skin biopsy Information Interpreted: non-clinical & clinical Change House Attendant: Change House Attendant Present (Nicole) Accompanied by: Self / Same As Patient Allergies aspirin Allergy (Severe, Verified 12/13/24 09:32) Anaphylaxis Quinolones Allergy (Severe, Verified 12/13/24 09:32) Anaphylaxis Sulfa (Sulfonamide Antibiotics) Allergy (Severe, Verified 12/13/24 09:32) Anaphylaxis Medication List - Last Reconciled 12/13/24 by Daria Mott LPN acetaminophen ER (Tylenol 8 Hour) 1,300 mg (2 x 650 mg) PO Q12H albuterol sulfate 90 mcg/actuation 2 puffs inhalation Q4-6H PRN amitriptyline mg PO aripiprazole 20 mg PO DAILY atenolol 25 mg PO DAILY azelastine 1 spray intranasal BID bisacodyl (Dulcolax (bisacodyl)) 10 mg (2 x 5 mg) PO BEDTIME 2 days buspirone 10 mg PO QPM cholecalciferol (vitamin D3) 25 mcg PO DAILY cyclobenzaprine 5 mg PO .qhs PRN diclofenac sodium 1% 4 grams topical QID epinephrine (EpiPen 2-Adolfo) 0.3 mg (0.3 mL) IM Q10M PRN famotidine (Pepcid) 20 mg PO BEDTIME fenofibrate nanocrystallized 145 mg PO DAILY fluticasone propionate 50 mcg/actuation 1 spray intranasal BID gabapentin 300 mg PO BEDTIME gabapentin 100 mg PO DAILY montelukast 10 mg PO QPM omeprazole 40 mg PO DAILY peg 3350-electrolytes 236-22.74-6.74 -5.86 gram (Golytely) 240 mL PO Q10M 1 day tirzepatide (weight loss) (Zepbound) 2.5 mg (0.5 mL) subcut QWEEK venlafaxine ER 75 mg PO DAILY venlafaxine ER 150 mg PO DAILY Is last menstrual period known: Yes Do you need a note to return to daycare/school/sports/work: No HPI Comments Details: Patient is here today for a skin biopsy. History of vulvar warts diagnosed years ago, has black freckling of the labia minora bilaterally, lower right reveals 1 single vulvar lesion that is raised with a rough surface. [facility] Medical History Encounter for well woman exam with routine gynecological exam Rhinosinusitis Nocturnal hypoxemia Sleep apnea Left knee pain Back pain History of torn meniscus of left knee Breast cancer screening Routine gynecological examination Encounter for colorectal cancer screening Annual physical exam GERD (gastroesophageal reflux disease) IBS (irritable bowel syndrome) Asthma Degenerative disc disease, cervical Surgical History History of esophagogastroduodenoscopy (EGD) H/O colonoscopy Hx of cholecystectomy Hx of section Family History Father Congestive heart failure COPD (chronic obstructive pulmonary disease) Mother Diabetes Mental health problem Intestinal obstruction Daughter Ovarian cancer Daughter No problems noted. Son No problems noted. Son No problems noted. Son No problems noted. Social History Household Members: Family Housing: House Alcohol intake: never Patient Tobacco Use Status: Never used Tobacco e-Cigarette/Vaping Use: Never Used Second Hand Smoke Exposure: No service: No Current occupational status: disabled Cognitive needs: Yes (Walker) Hearing needs: No Vision needs: Yes (Glasses) Female Reproductive History Menstrual Total pregnancies: 6 Number of Living Children: 5 Ab spontaneous: 1 Date of last pap smear: 11/23/24 History of abnormal pap smear: No Date of Mammogram: 11/09/24 History of abnormal mammogram: No Review of Systems Const All systems reviewed & are unremarkable except as noted in HPI and below Endo Reports no additional complaints Physical Exam Vital Signs: Last Vital Signs BP 138/80 12/13/24 09:31 BMI result Body Mass Index 52.3 Const General: cooperative, healthy appearing and no acute distress Other: External inspection only: Scattered black freckling appearing lesions, 1 prominent to the lower right labia with raised rough surface Female genitals images: 2 1. right lower labia Psych Appearance: well kempt Attitude: cooperative Thought process: Normal thought process present Office Procedures Skin Biopsy Details: Vulvar Biopsy: Preop Diagnosis: Vulvar biopsy. The patient was consented for a vulvar skin biopsy procedure today. The purpose of the procedure is to rule out any skin abnormalities in the area of concern(s) including: GERRY, or skin conditions such as lichen sclerosis. All the risks and benefits were reviewed. The risk of the procedure including: pain, bleeding, swelling, bruising, injury to nerves blood supply, and surrounding tissue, scarring, and permanent skin discoloration. All of her questions and concerns were addressed to the best of my ability and shared decision making. She is agreeable to the plan of care. The patient was placed in the dosal lithotomy position. Using aseptic technique for the procedure the biopsy area was cleansed and prepped with Betadine solution. The skin area was anesthetized with Lidocaine 1% using a 3cc syringe and a 25g needle, 0.5cc was injected perpendicular into the dermis at the biopsy site until elevation was noted. A Shave biopsy technique was utilized. The bleeding site was minimal and controlled by direct pressure for several seconds. Vaseline ointment and guaze dressing was applied to the biopsy site. The patient tolerated the procedure well and left the department in good condition. Post biopsies skin care: Keep the area clean and dry. Apply Vaseline to the area as directed for the 1st week. Wear loose clothing and avoid intimacy until well healed. Report any signs of infection: Fever flu-like symptom, increased pain, redness, any foul odor or pus discharge. Return to the office in 2 weeks for biopsy results. Call sooner if any concerns. All of her questions and concerns were addressed to the best of my ability and shared decision making. She is agreeable to the plan of care. This note is constructed using voice recognition software. While every effort has been made to ensure accuracy, service line coordinator errors may have been included. Skin biopsy performed by: Aliza Calix Informed consent given: Yes Consent signed: Yes Type of Biopsy: shave Anesthesia: local Hemostasis: pressure Wound closure: secondary intention Patient tolerated procedure: well Complications: No Assessment & Plan Assessment & Plan (1) Vulvar lesion: Code(s): N90.89 - Other specified noninflammatory disorders of vulva and perineum Plan See biopsy notes. This note is constructed using voice recognition software. While every effort has been made to ensure accuracy, service line coordinator errors may have been included. Orders: Orders 2 Surgical Today N90.89 - Other specified noninflammatory disorders of vulva and perineum Coding Level of Care Code Procedure Only Diagnoses Vulvar lesion N90.89
[2024-12-13 09:31] VITALS: BP 138/80; BMI 52.3
== END 2024-12-13 10:31 | disposition home or self-care (01) ==
LOC: HO.HWS 09:15
PROVIDERS: Visit Provider Advanced Practice Midwife
DX: N90.89 Other specified noninflammatory disorders of vulva and perineum (principal)
CPT/HCPCS: 56605

== ENCOUNTER 2025-01-18 10:57 | Day surgery (SDC) | payer MEDICARE, MEDICAID, SELFPAY ==
--- NOTE | 2025-01-16 10:03 | HO.ANESPROP2 ---
Documented by User: Stephany Verdugo NP 01/16/25 10:07 HPI - Anesthesia Eval Consult details Narrative: 54 yr old female for colonoscopy BMI 55 Follows [facility] pulmo for MAHOGANY (on CPAP), Asthma (prn albuterol use); last visit 11/26/24, stable, no tx changes. Anesthesia Pre-Procedure Meds Is the patient on any of the following meds?: GLP1/DPP4 PMFSH Active Problems Active Problems: All Active Problems Blurry vision, bilateral (Acute) Encounter for well woman exam with routine gynecological exam (Acute) Finger swelling (Acute) Cervical radiculitis (Acute) Cervical spondylosis (Acute) Edema of right ankle (Acute) Right ankle pain (Acute) Vitamin D deficiency (Acute) Family history of polyps in the colon (Acute) Pre-op examination (Acute) AMHOGANY (obstructive sleep apnea) (Acute) Mammographic fibroglandular density, bilateral breasts (Acute) Osteoarthritis of left knee (Acute) HTN (hypertension) (Acute) High cholesterol (Acute) Anxiety (Acute) Major depression (Acute) Upper back pain (Acute) Low back pain (Acute) Morbid obesity with BMI of 50.0-59.9, adult (Acute) GERD (gastroesophageal reflux disease) (Acute) Asthma (Acute) Neck pain (Acute) Degenerative disc disease, cervical (Acute) Past Medical History Medical History Encounter for well woman exam with routine gynecological exam Rhinosinusitis Nocturnal hypoxemia Sleep apnea Left knee pain Back pain History of torn meniscus of left knee Breast cancer screening Routine gynecological examination Encounter for colorectal cancer screening Annual physical exam GERD (gastroesophageal reflux disease) IBS (irritable bowel syndrome) Asthma Degenerative disc disease, cervical Family History Family History Father Congestive heart failure COPD (chronic obstructive pulmonary disease) Mother Diabetes Mental health problem Intestinal obstruction Daughter Ovarian cancer Daughter No problems noted. Son No problems noted. Son No problems noted. Son No problems noted. Surgical History Surgical History History of esophagogastroduodenoscopy (EGD) H/O colonoscopy Hx of cholecystectomy Hx of section Social History Social History Household Members: Family Housing: House Alcohol intake: never Patient Tobacco Use Status: Never used Tobacco e-Cigarette/Vaping Use: Never Used Second Hand Smoke Exposure: No Are you DNR?: No Advance Directives: No Advance Directives Information Provided: Yes service: No Current occupational status: disabled Cognitive needs: Yes (Walker) Hearing needs: No Vision needs: Yes (Glasses) Meds Allergies Allergy/AdvReac Type Severity Reaction Status Date / Time aspirin Allergy Severe Anaphylaxis Verified 12/25/24 11:44 Quinolones Allergy Severe Anaphylaxis Verified 12/25/24 11:44 Sulfa (Sulfonamide Allergy Severe Anaphylaxis Verified 12/25/24 11:44 Antibiotics) Home Medications ?Medication ?Instructions ?Recorded ?Confirmed ?Last Taken ?Type aripiprazole 20 mg tablet 20 mg PO DAILY 05/16/24 01/16/25 Unknown History famotidine 20 mg tablet (Pepcid) 20 mg PO BEDTIME 05/16/24 01/16/25 Unknown History fluticasone propionate 50 1 spray intranasal BID 05/16/24 01/16/25 Unknown History mcg/actuation nasal spray,suspension venlafaxine 150 mg 150 mg PO DAILY 05/16/24 01/16/25 Unknown History capsule,extended release 24 hr venlafaxine 75 mg capsule,extended 75 mg PO DAILY 05/16/24 01/16/25 Unknown History release 24 hr Documented by User: Raffy Miller MD 01/18/25 13:08 [facility] Past Medical History Medical History Encounter for well woman exam with routine gynecological exam Rhinosinusitis Nocturnal hypoxemia Sleep apnea Left knee pain Back pain History of torn meniscus of left knee Breast cancer screening Routine gynecological examination Encounter for colorectal cancer screening Annual physical exam GERD (gastroesophageal reflux disease) IBS (irritable bowel syndrome) Asthma Degenerative disc disease, cervical Family History Family History Father Congestive heart failure COPD (chronic obstructive pulmonary disease) Mother Diabetes Mental health problem Intestinal obstruction Daughter Ovarian cancer Daughter No problems noted. Son No problems noted. Son No problems noted. Son No problems noted. Family history of problems with anesthesia: No Surgical History Surgical History History of esophagogastroduodenoscopy (EGD) H/O colonoscopy Hx of cholecystectomy Hx of section History of Problems with Anesthesia: No Social History Social History Household Members: Family Housing: House Alcohol intake: never Patient Tobacco Use Status: Never used Tobacco e-Cigarette/Vaping Use: Never Used Second Hand Smoke Exposure: No Are you DNR?: No Advance Directives: No Advance Directives Information Provided: Yes service: No Current occupational status: disabled Cognitive needs: Yes (Walker) Hearing needs: No Vision needs: Yes (Glasses) Meds Allergies Allergy/AdvReac Type Severity Reaction Status Date / Time aspirin Allergy Severe Anaphylaxis Verified 12/25/24 11:44 Quinolones Allergy Severe Anaphylaxis Verified 12/25/24 11:44 Sulfa (Sulfonamide Allergy Severe Anaphylaxis Verified 12/25/24 11:44 Antibiotics) Home Medications ?Medication ?Instructions ?Recorded ?Confirmed ?Last Taken ?Type aripiprazole 20 mg tablet 20 mg PO DAILY 05/16/24 01/16/25 Unknown History famotidine 20 mg tablet (Pepcid) 20 mg PO BEDTIME 05/16/24 01/16/25 Unknown History fluticasone propionate 50 1 spray intranasal BID 05/16/24 01/16/25 Unknown History mcg/actuation nasal spray,suspension venlafaxine 150 mg 150 mg PO DAILY 05/16/24 01/16/25 Unknown History capsule,extended release 24 hr venlafaxine 75 mg capsule,extended 75 mg PO DAILY 05/16/24 01/16/25 Unknown History release 24 hr Exam Exam Date and Time: 01/18/2025 Airway Mallampati Class: II TM Dist: >3cm Neck ROM: Full Heart: rrr Lungs: ctab vesicular Assessment and Plan Assessment Anesthesia Assessment: Anesthesia Plan Discussed and Chart Reviewed Final Anesthetic Review Family History of Problems with Anesthesia: No History of Problems with Anesthesia: No NPO: Yes ASA Class: III Final Preanesthetic Review: No Changes in Pt Med Stat, Meds/Allgs Chart Reviewed, Consent Obtained/Reviewed and Anes Risks/Benef Reviewed Patient Risk: Low Procedure Risk: Low Anesthetic Plan Anesthetic Plan: MAC: Disposition: Standard PACU
[2025-01-16 15:02] VITALS: BMI 55.4
[2025-01-18 11:05] VITALS: BMI 42.9
[2025-01-18 11:21] VITALS: BP 143/88; PULSE 89; RESP 20; TEMP 36.7; O2SAT 94
--- NOTE | 2025-01-18 11:51 | MHC.SHP ---
Pre-Procedural Eval Section A - 24 Hr Update-Section A only Date of Service: 01/18/25 Section B - Complete if H&P > 30 days Chief Complaint: Family history of colon polyps, unspecified Details of Present Illness: PMX Asthma Morbid obesity MAHOGANY High cholesterol Depression with anxiety GERD Cervical degenerative disc disease Urinary incontience CIC alt with diarrhea * SURGICAL HISTORY Cholecystectomy section * ALLERGIES Aspirin Quinolones Sulfa Present Medications: see Short Stay Collaborative assessment Allergies: Allergies Allergy/AdvReac Type Severity Reaction Status Date / Time aspirin Allergy Severe Anaphylaxis Verified 12/25/24 11:44 Quinolones Allergy Severe Anaphylaxis Verified 12/25/24 11:44 Sulfa (Sulfonamide Allergy Severe Anaphylaxis Verified 12/25/24 11:44 Antibiotics) Review of Systems Review of Systems Comment: Ten point ROS negative Exam Exam Comment: Gen appear: No acute distress HEENT: no icterus Chest: No overt resp distress Abd: soft, nontender, nondistended Psych: Stable affect, answering questions appropriately Neuro: A/Ox3 noted to move all extremities spontaneously Ext: no peripheral edema Plan Diagnosis/Plan: Unchanged I have reviewed the history and physical and performed a pertinent physical examination on my patient. No changes have occurred unless specified. Of note - adult scope requested for this procedure given BMI, but not available. Time Spent With Patient Time: Total time managing care of this patient today ____ minutes.
--- NOTE | 2025-01-18 13:00 | P.OPN-COLO_ITS ---
Colonoscopy Operative Note Operative Note Date of Service: 01/18/25 Narrative: Procedure: Colonoscopy Indication: Screening Endoscopist: June Dillard MD Anesthesia Provider: Raffy Lee MD Anesthesia type: MAC Instrument: Olympus [id number] Consent: Indication, risks vs benefits, and alternatives were discussed with the patient who gave written informed consent to proceed. An full time staff interpreter was utilized to assist with the consent. Peripheral IV placement was challenging, an ultrasound-guided IV line was placed by the anesthesiologist. EKG, pulse, pulse oximetry and blood pressure were monitored throughout the procedure. Please see anesthesia flowsheet. Procedure: The patient was brought to the procedure room and placed in the left lateral decubitus position. An abdominal binder was placed to the lower abdomen. IV medications were administered by the anesthesia provider in attendance. A digital rectal exam was performed which was abnormal due to finding of hemorrhoids and anal tag. A distal attachment cap was affixed to the tip of the colonoscope which was then inserted through the anus and advanced through the colon to the cecum at 75 cm,and terminal ileum. Appendiceal orifice and ileocecal valve were identified. Mucosa was carefully examined under high definition white light as the instrument was slowly withdrawn in a retrograde panoramic fashion. Retroflexion was performed in rectum. The procedure was not difficult. There were no immediate obvious complications. The quality of the prep was BBPS: 3+2+3 = adequate Withdrawal time 17 minutes. Limitations: No limitations. Findings: Mucosa: Normal to cecum and terminal ileum. Protruding lesions: * 3 sessile polyp of size 4-5 mm in sigmoid colon. Cold snare polypectomy was performed. The polyps were completely removed and retrieved. * 1 semi-pedunculated polyp of size 12 mm in sigmoid colon. Cold snare polypectomy was performed. The polyp was completely removed and retrieved. This polyp was placed in a separate jar. * Medium internal hemorrhoids without stigmata of recent bleeding. Excavated lesions: * Few diverticula of sigmoid colon. Impression: 1. Normal colon and terminal ileum mucosa 2. Total of 4 polyps removed 3. Diverticulosis 4. External and internal hemorrhoids 5. Anal tag Recommendations: - Follow path results. - Repeat colonoscopy in 3 years if the larger polyp is an adenoma.
[2025-01-18 13:04] VITALS: BP 120/70; PULSE 100; RESP 15; TEMP 36.9; O2SAT 94
[2025-01-18 13:15] VITALS: BP 141/87; PULSE 86; RESP 16; TEMP 36.6; O2SAT 98
== END 2025-01-18 13:57 | disposition home or self-care (01) ==
PROVIDERS: Visit Provider Internal Medicine
PROC: 0DJD8ZZ Inspection of Lower Intestinal Tract, Via Natural or Artificial Opening Endoscopic (ICD-10-PCS; CPT 45378; principal; 2025-01-18 12:10)
DX: Z12.11 Encounter for screening for malignant neoplasm of colon (principal); Z83.719 Family history of colon polyps, unspecified; K64.8 Other hemorrhoids; K64.4 Residual hemorrhoidal skin tags; D12.5 Benign neoplasm of sigmoid colon; K63.5 Polyp of colon
CPT/HCPCS: 45385; 88305; J2003; J2405; J2704

== ENCOUNTER → 2025-01-18 10:57 | Outpatient (BNV) | payer MEDICARE, MEDICAID, SELFPAY | PROVIDERS: Visit Provider Internal Medicine | DX: Z12.11 Encounter for screening for malignant neoplasm of colon (principal); K63.5 Polyp of colon; K57.30 Diverticulosis of large intestine without perforation or abscess without bleeding; K64.8 Other hemorrhoids | CPT/HCPCS: 45385 ==

== ENCOUNTER 2025-01-24 13:37 | Outpatient (AMB) | payer MEDICARE, MEDICAID, SELFPAY ==
--- NOTE | 2025-01-24 13:50 | MHC.OFFVIS ---
Vital Signs 01/24/25 13:52 Height 5 ft 2 in Weight 294 lb 5.074 oz BMI 53.8 BP 110/72 Blood Pressure Location Lt radial Pulse 64 Pulse Source Pulse Oximeter Pulse Oximetry (%) 96 Oxygen Delivery Method Room Air Intake Visit Reasons: Obstructive sleep apnea Intake Note: pt is here for follow up of mahogany and cpap is going well Marketing Content Specialist Required: No Technical Sales Engineer: Technical Sales Engineer offered & declined Allergies aspirin Allergy (Severe, Verified 01/24/25 14:04) Anaphylaxis Quinolones Allergy (Severe, Verified 01/24/25 14:04) Anaphylaxis Sulfa (Sulfonamide Antibiotics) Allergy (Severe, Verified 01/24/25 14:04) Anaphylaxis Medication List - Last Reconciled 01/24/25 by Mariel Chopra MD acetaminophen ER (Tylenol 8 Hour) 1,300 mg (2 x 650 mg) PO Q12H albuterol sulfate 90 mcg/actuation 2 puffs inhalation Q4-6H PRN aripiprazole 20 mg PO DAILY atenolol 25 mg PO DAILY azelastine 1 spray intranasal BID bisacodyl (Dulcolax (bisacodyl)) 10 mg (2 x 5 mg) PO BEDTIME 2 days cholecalciferol (vitamin D3) 25 mcg PO DAILY cyclobenzaprine 5 mg PO .qhs PRN diclofenac sodium 1% 4 grams topical QID epinephrine (EpiPen 2-Adolfo) 0.3 mg (0.3 mL) IM Q10M PRN famotidine (Pepcid) 20 mg PO BEDTIME fenofibrate nanocrystallized 145 mg PO DAILY fluticasone propionate 50 mcg/actuation 1 spray intranasal BID gabapentin 300 mg PO BEDTIME gabapentin 100 mg PO DAILY montelukast 10 mg PO QPM omeprazole 40 mg PO DAILY peg 3350-electrolytes 236-22.74-6.74 -5.86 gram (Golytely) 240 mL PO Q10M 1 day tirzepatide (weight loss) (Zepbound) 2.5 mg (0.5 mL) subcut QWEEK venlafaxine ER 75 mg PO DAILY venlafaxine ER 150 mg PO DAILY Do you need a note to return to daycare/school/sports/work: No HPI HPI Obstructive sleep apnea: Details: 54 YEARS OLD VERY PLEASANT FEMALE WHO IS CASE OF MORBID OBESITY AND OBSTRUCTIVE SLEEP APNEA COMES HERE FOR HER ROUTINE FOLLOW-UP. SHE IS USING CPAP VERY REGULARLY AND SLEEPS GOOD, UP TO 9 HOURS PER NIGHT. SHE HAS NO ISSUES WITH THE CPAP MASK OR THE MACHINE. THE ONLY PROBLEM IS THAT SHE IS VERY OBESE AND ALSO HAS DEGENERATIVE ARTHRITIS OF THE KNEES SO SHE IS NOT ABLE TO WALK AROUND MUCH. CURRENTLY SHE IS ON ZEPBOUND INJECTIONS AND HOPING TO LOSE SOME WEIGHT. SHE HAS NO COUGH OR WHEEZING. SHE DOES HAVE CHRONIC NASAL CONGESTION DUE TO ALLERGIC RHINITIS WHICH IS CONTROLLED WITH MEDS. [facility] Medical History (Updated 01/24/25 @ 14:11 by Mariel Chopra MD) Allergic rhinitis Encounter for well woman exam with routine gynecological exam Rhinosinusitis Nocturnal hypoxemia Sleep apnea Left knee pain Back pain History of torn meniscus of left knee Breast cancer screening Routine gynecological examination Encounter for colorectal cancer screening Annual physical exam GERD (gastroesophageal reflux disease) IBS (irritable bowel syndrome) Asthma Degenerative disc disease, cervical Surgical History History of esophagogastroduodenoscopy (EGD) H/O colonoscopy Hx of cholecystectomy Hx of section Family History Father Congestive heart failure COPD (chronic obstructive pulmonary disease) Mother Diabetes Mental health problem Intestinal obstruction Daughter Ovarian cancer Daughter No problems noted. Son No problems noted. Son No problems noted. Son No problems noted. Social History Household Members: Family Housing: House Alcohol intake: never Patient Tobacco Use Status: Never used Tobacco e-Cigarette/Vaping Use: Never Used Second Hand Smoke Exposure: No service: No Current occupational status: disabled Cognitive needs: Yes (Walker) Hearing needs: No Vision needs: Yes (Glasses) Review of Systems Const All systems reviewed & are unremarkable except as noted in HPI and below Eyes Reports no additional complaints ENT Reports nasal congestion (INTERMITTENT) Card Denies chest pain, Denies syncope, Denies irregular heart rhythm and Denies leg edema Resp Reports as per HPI GI Reports no additional complaints Reports no additional complaints Musc Reports back pain and Reports arthralgias (KNEES) Skin/Breast Reports system reviewed and no additional complaints, except as documented Neuro Reports no additional complaints and Denies syncope Psych Reports anxiety and Reports depression Endo Reports no additional complaints Tony/Lymph Reports no additional complaints Physical Exam SHE IS GROSSLY OBESE, WITH A ROUND FACE, SHORT NECK AND MALLAMPATI SCALE 4. Const General: comfortable, no acute distress, alert and awake Orientation/consciousness: patient oriented x3 HEENT Head: Yes normal to inspection General nose exam: No nasal polyps present, No nasal discharge present and Other nasal findings present (SHE DOES HAVE NASAL CONGESTION ESPECIALLY ON THE LEFT SIDE) Face and sinus: Yes sinuses nontender Mouth: oropharynx abnormals (VERY NARROW AND CROWDED, MALLAMPATI CLASS 4) Throat: Yes posterior oropharynx normal Eyes General: appearance normal, both eyes and all related structures Neck Neck: Yes normal visual inspection, Yes no lymphadenopathy, Yes trachea midline and Yes no JVD Thyroid: Thyroid normal Chest Chest palpation & inspection: normal inspection of the chest, normal palpation of entire chest wall and no tenderness Resp Other: PERCUSSION NOTE IS NOT PERCEPTIBLE, BREATH SOUNDS ARE VERY DISTANT, NO WHEEZES OR RHONCHI ARE HEARD Auscultation: no crackles, no rhonchi and no wheezes Cardio Palpation: normal PMI (NOT PALPABLE) Rate: regular rate Rhythm: regular rhythm Heart sounds: no gallops and no murmurs Peripheral pulses: Peripheral pulses 2+ throughout GI Palpation (GI): Soft to palpation, nontender, No hepatosplenomegaly present and no masses Auscultation: normal bowel sounds Back/Spine/Pelvis Thoracic/Lumbar Spine: thoracic and lumbar spine normal to inspection and thoraco-lumbar ROM limited Skin General skin exam: no rashes or lesions noted Neuro General: patient oriented x3 and no focal motor deficits Cranial nerves: Yes CN's II-XII intact bilaterally Extrem General: Yes normal to inspection, Yes no clubbing, cyanosis or edema and Yes no calf tenderness Psych Appearance: grossly normal and well kempt Speech and movement: Normal speech and movement present Results Reviewed Results Reviewed: COMPLIANCE REPORT FOR THE LAST 30 NIGHTS REVIEWED AND SHE HAS USED 100% OF THE NIGHTS. AVERAGE USE IT PER NIGHT 9 HOURS FOR MINUTES. BILEVEL PRESSURE 20/16 THERE IS MODERATE AMOUNT OF AIR LEAK . RESIDUAL AHI ONLY 1.0 Assessment & Plan Assessment & Plan (1) Morbid obesity with BMI of 50.0-59.9, adult: Comment: SHE HAS HISTORY OF MORBID OBESITY DURING THE PAST 5-6 YEARS OR MORE. NOT ABLE TO DO MUCH WALKING OR EXERCISE. DOES NOT HAVE MUCH CONTROL ON DIET. Code(s): E66.01 - Morbid (severe) obesity due to excess calories; Z68.43 - Body mass index [BMI] 50.0-59.9, adult Category: Medical Plan: HAS BEEN STARTED ON ZEPBOUND INJECTIONS AND HOPEFULLY SHE WILL LOSE SOME WEIGHT. (2) MAHOGANY (obstructive sleep apnea): Comment: SHE DOES HAVE VERY VERY SEVERE OBSTRUCTIVE SLEEP APNEA WITH NOCTURNAL HYPOXEMIA HAD VERY SUCCESSFUL CPAP TITRATION AND REQUIRED BIPAP 20/16 CM USING FULLFACE MASK . AT THIS PRESSURE SETTING SHE DID NOT REQUIRE THE OXYGEN. SHE IS VERY HAPPY WITH THE USE OF BIPAP, SLEEPS GOOD THE WHOLE NIGHT. AND DENIES ANY DAYTIME SLEEPINESS DURING THE DAYTIME Code(s): G47.33 - Obstructive sleep apnea (adult) (pediatric) Category: Medical Plan: COMMENDED FOR GOOD COMPLIANCE AND ADVISED TO CONTINUE USING THE BIPAP EVERY NIGHT. TRY TO KEEP THE STRAPS TIGHT TO MINIMIZE AIR LEAK. (3) Allergic rhinitis: Comment: SHE HAS CHRONIC NASAL CONGESTION DUE TO ALLERGIC RHINITIS AND IS CONTROLLED WITH MEDS. Code(s): J30.9 - Allergic rhinitis, unspecified Category: Medical Plan: MONTELUKAST 10 MG DAILY FLONASE -50 1 SPRAY IN EACH NOSTRIL B.I.D. AZELASTINE 1 SPRAY IN EACH NOSTRIL B.I.D. Coding Level of Care Code Est Pt Level 3 (06656) Diagnoses Morbid obesity with BMI of 50.0-59.9, adult E66.01; Z68.43 MAHOGANY (obstructive sleep apnea) G47.33 Allergic rhinitis J30.9
[2025-01-24 13:52] VITALS: BP 110/72; PULSE 64; O2SAT 96; BMI 53.8
== END 2025-01-24 14:06 | disposition home or self-care (01) ==
LOC: HO.HPS 13:38
PROVIDERS: Visit Provider Internal Medicine
DX: E66.01 Morbid (severe) obesity due to excess calories (principal); Z68.43 Body mass index [BMI] 50.0-59.9, adult; G47.33 Obstructive sleep apnea (adult) (pediatric); J30.9 Allergic rhinitis, unspecified
CPT/HCPCS: 99213

== ENCOUNTER → 2025-01-24 13:37 | Outpatient (BNVA) | payer MEDICARE, MEDICAID, SELFPAY | PROVIDERS: Visit Provider Internal Medicine | DX: G47.33 Obstructive sleep apnea (adult) (pediatric) (principal); E66.01 Morbid (severe) obesity due to excess calories; Z99.89 Dependence on other enabling machines and devices; J30.9 Allergic rhinitis, unspecified | CPT/HCPCS: 99212 ==